=== PATIENT | male | born 1980 | race Caucasian/White ===

== ENCOUNTER 2016-06-02 13:14 | Inpatient (IN) | payer OTHER ==
[~2016-06-02] VITALS: Ht 180.3 cm; Wt 102.5 kg
[~2016-06-02 13:14] MED LIST: ALB2.5NEB INH; ALBU17IN2 INH; ALBU83IN INH; ATOR1TAB21 PO; BENA25TA4 PO; BUTATAB6 PO; CEFD300CAP PO; DOXE100CA PO; FLAG500T PO; FLUO20CA9 PO; LOSA50TA20 PO; LYRI100C10 PO; LYRI150C PO; LYRI200C PO; MUCI600T34 PO; OMEP20CA3 PO; OMEP40CA2 PO; PROZ20CA11 PO; QUET5TAB PO; TRAM200T PO; TYLE325C PO
[2016-06-02] MEDS ORDERED: ONDANSETRON 4MG/2ML VIAL (J2405) As Ordered ONE (13:24)
[2016-06-02] MEDS ORDERED: NALOXONE INJ 2 MG/2 ML SYRINGE (J2310) As Ordered ONE (13:24)
[2016-06-02 13:36] LABS: BASO # 0.2 K/mm3 (0.0-0.2); BASO % 1.1 % (0.0-1.0); EOS # 0.1 K/mm3 (0.0-0.50); EOS % 0.4 % (0.0-3.0); LARGE UNSTAINED CELL # 0.3 K/mm3 (0.0-0.4); LARGE UNSTAINED CELL % 1.5 % (0.0-4.0); LYMPH # 2.1 K/mm3 (1.5-4.5); LYMPH % 8.3 % (24.0-44.0); MEAN CORPUSCULAR HEMOGLOBIN 29.2 pg (27.0-33.0); MEAN CORPUSCULAR HGB CONC 33.8 g/dl (32.0-36.5); MEAN CORPUSCULAR VOLUME 86.4 fl (80.0-96.0); MONO % 4.6 % (0.0-5.0); NEUTROPHILS # 17.9 K/mm3 (1.8-7.7); PLATELET COUNT, AUTOMATED 290 k/mm3 (150-450); RED CELL DISTRIBUTION WIDTH 13.6 % (11.5-14.5); WHITE BLOOD COUNT 21.4 K/mm3 (4.0-10.0)
[2016-06-02 13:45] LABS: AMPHETAMINES LEVEL URINE NEGATIVE (NEGATIVE); BENZODIAZEPINES URINE NEGATIVE (NEGATIVE); COCAINE METABOLITE URINE NEGATIVE (NEGATIVE); CONTROL LINE INT CTR LINE PRESENT; METHADONE URINE NEGATIVE (NEGATIVE); OPIATES URINE NEGATIVE (NEGATIVE); TRICYCLIC ANTIDEPRESS URINE POSITIVE (NEGATIVE)
[2016-06-02 13:57] LABS: ALBUMIN 3.8 GM/DL (3.2-5.2); ALBUMIN/GLOBULIN RATIO 1.19 (1.00-1.93); ALKALINE PHOSPHATASE 105 U/L (45-117); ALT/SGPT 45 U/L (12-78); ANION GAP 9 MEQ/L (8-16); AST/SGOT 121 U/L (15-37); BILIRUBIN,DIRECT < 0.1 MG/DL (0.0-0.2); BILIRUBIN,TOTAL 0.2 MG/DL (0.2-1.0); BLOOD UREA NITROGEN 20 MG/DL (7-18); CALCIUM LEVEL 8.3 MG/DL (8.5-10.1); CARBON DIOXIDE LEVEL 26 MEQ/L (21-32); CHLORIDE LEVEL 109 MEQ/L (98-107); CREATININE FOR GFR 1.37 MG/DL (0.70-1.30); GLOMERULAR FILTRATION RATE > 60.0 (>60); GLUCOSE, FASTING 118 MG/DL (70-105); POTASSIUM SERUM 3.8 MEQ/L (3.5-5.1); SODIUM LEVEL 144 MEQ/L (136-145)
[2016-06-02 14:14] LABS: ABG BASE EXCESS -0.7 (-2.0-2.0); ABG DEVICE NASAL CANN; ABG HCO3 24.6 MEQ/L (22.0-26.0); ABG PARTIAL PRESSURE O2 176.8 mmHg (75.0-100.0); ABG pH (ARTERIAL) 7.376 UNITS (7.350-7.450)
[2016-06-02] MEDS ORDERED: SODIUM BICARBONATE 8.4% INJ 50 ML SYRINGE As Ordered ONE ×2 (15:23→16:16)
[2016-06-02] MEDS ORDERED: KCL 10MEQ IN STERILE WATER 100ML As Ordered ONE (15:23)
--- NOTE | 2016-06-02 15:52 | ECGEPIP ---
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
--- NOTE | 2016-06-02 15:54 | ECGEPIP ---
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
[2016-06-02] MEDS ORDERED: LORazepam 2 MG/ML VIAL (J2060) As Ordered ONE (17:08)
[2016-06-02] MEDS ORDERED: LYRI200C PO (17:15)
[2016-06-02] MEDS ORDERED: FLUO20CA8 PO (17:15)
[2016-06-02] MEDS ORDERED: SERO1TAB3 PO (17:23)
[2016-06-02] MEDS ORDERED: TYLE325T5 PO (17:23)
[2016-06-02] MEDS ORDERED: LOSA50TA20 PO (17:25)
[2016-06-02] MEDS ORDERED: BUTA-198 PO (17:25)
[2016-06-02 17:30] LABS: ABG BASE EXCESS 8.1 (-2.0-2.0); ABG DEVICE NASAL CANN; ABG HCO3 33.1 MEQ/L (22.0-26.0); ABG PARTIAL PRESSURE CO2 47.3 mmHg (35.0-45.0); ABG STANDARD HCO3 31.9 MEQ/L (22.0-26.0); ABG TOTAL CO2 34.6 MEQ/L (22.0-29.0); ABG pH (ARTERIAL) 7.463 UNITS (7.350-7.450)
[2016-06-02 18:08] LABS: ANION GAP 7 MEQ/L (8-16); BLOOD UREA NITROGEN 17 MG/DL (7-18); CALCIUM LEVEL 7.2 MG/DL (8.5-10.1); CARBON DIOXIDE LEVEL 36 MEQ/L (21-32); CHLORIDE LEVEL 108 MEQ/L (98-107); CREATININE FOR GFR 1.27 MG/DL (0.70-1.30); GLOMERULAR FILTRATION RATE > 60.0 (>60); GLUCOSE, FASTING 127 MG/DL (70-105); POTASSIUM SERUM 3.3 MEQ/L (3.5-5.1); SODIUM LEVEL 151 MEQ/L (136-145)
[2016-06-02] MEDS ORDERED: MAG SULF 1GM/100ML (MAG RUN) 1 GM in APPROPRIATE DILUENT 1 EA IV SCH (18:45)
[2016-06-02] MEDS ORDERED: KCL 10MEQ IN 100ML SWI (KRUN) 10 MEQ in APPROPRIATE DILUENT 1 EA IV SCH ×2 (18:45)
[2016-06-02] MEDS ORDERED: LEVALBUTEROL 1.25 MG/0.5 ML CONCENTRATE NEB INH PRN (19:00)
[2016-06-02] MEDS ORDERED: LORazepam 2 MG/ML VIAL (J2060) IV PRN (19:00)
[2016-06-02 19:17] LABS: ABG BASE EXCESS 7.3 (-2.0-2.0); ABG HCO3 32.6 MEQ/L (22.0-26.0); ABG PARTIAL PRESSURE CO2 48.6 mmHg (35.0-45.0); ABG PARTIAL PRESSURE O2 137.5 mmHg (75.0-100.0); ABG STANDARD HCO3 31.2 MEQ/L (22.0-26.0); ABG TOTAL CO2 34.1 MEQ/L (22.0-29.0); ABG pH (ARTERIAL) 7.445 UNITS (7.350-7.450)
[2016-06-02 19:58] LABS: ALBUMIN 3.2 GM/DL (3.2-5.2); ALBUMIN/GLOBULIN RATIO 1.23 (1.00-1.93); ALKALINE PHOSPHATASE 92 U/L (45-117); ALT/SGPT 49 U/L (12-78); AST/SGOT 138 U/L (15-37); BILIRUBIN,DIRECT < 0.1 MG/DL (0.0-0.2); BILIRUBIN,TOTAL 0.2 MG/DL (0.2-1.0); TOTAL PROTEIN 5.8 GM/DL (6.4-8.2)
--- NOTE | 2016-06-02 20:19 | EDDOCDS ---
Physician Documentation [facility] Name: Allen Jimenez Age: 35 yrs Sex: Male : 1980 Arrival Date: 06/02/2016 Time: 13:14 Bed 3 Private MD: Disposition: 06/02/16 16:56 Hospitalization ordered by Bobby Pandey for Inpatient Admission. Preliminary diagnosis are Other psychoactive substance dependence with intoxication, Altered mental status, unspecified. - Bed requested for M ICU. - Status is Inpatient Admission. sls1 - Condition is Stable. - Problem is new. - Symptoms have worsened. Historical: - Allergies: Tramadol HClseizure; Mobic (Anaphylaxis); Ambien; Ambien; Mobic (Anaphylaxis); Tramadol HClseizure; - Home Meds: 1. fluoxetine 20 mg Oral cap 3 caps once daily (Last dose: Unknown) 2. quetiapine 25 mg oral tab 1 tab nightly (Last dose: Unknown) 3. losartan 50 mg oral tab 1 tab once daily (Last dose: Unknown) 4. pregabalin 200 mg Oral cap 1 cap 2 times per day (Last dose: Unknown) 5. doxepin 100 mg Oral cap bedtime quantity 30 -- filled 06/09/2015 bottle empty (Last dose: Unknown) 6. atorvastatin 20 mg oral tab 1 tab once daily (Last dose: Unknown) - PMHx: Asthma; Chronic Back pain; Depression; Asthma; Chronic Back pain; Depression; - PSHx: Colonoscopy; Colonoscopy; - Social history: Smoking status: unknown if patient ever smoked tobacco. No barriers to communication noted, The patient speaks fluent [place], Speaks appropriately for age. - Family history: Not pertinent. - : The pt / caregiver states he / she is not on anticoagulants. Home medication list is obtained from [employer] import data, pill bottles, Unable to Verify Home Med List with the patient / caregiver. - Exposure Risk Screening:: Unable to Assess. Vital Signs: 06/02 13:16 BP 169 / 102 (auto/); pml 13:17 BP 169 / 102; Pulse 123; Resp 16; Temp 100.9(TE); Pulse Ox 97% on 10% Non-rebreather jml1 mask; Weight 103.24 kg / 227.61 lbs; 13:17 Pulse 122 MON; Pulse Ox 97% ; pml 13:25 Pulse 123 MON; Pulse Ox 98% ; pml 13:25 BP 174 / 95 (auto/); pml 13:35 BP 154 / 81 (auto/); pml 13:37 Pulse 122 MON; Pulse Ox 99% ; pml 13:45 Pulse 128 MON; Pulse Ox 99% ; pml 13:45 BP 156 / 82 (auto/); pml 13:55 Pulse 127 MON; Pulse Ox 99% ; pml 13:55 BP 152 / 84 (auto/); pml 14:05 Pulse 126 MON; Pulse Ox 99% ; pml 14:05 BP 151 / 81 (auto/); pml 14:15 Pulse 123 MON; Pulse Ox 99% ; pml 14:15 BP 155 / 79 (auto/); pml 14:25 Pulse 120 MON; Pulse Ox 99% ; pml 14:25 BP 156 / 78 (auto/); pml 14:35 Pulse 119 MON; Pulse Ox 99% ; pml 14:35 BP 150 / 77 (auto/); pml 14:42 Temp 99.0(TE); jml1 14:45 Pulse 119 MON; Pulse Ox 98% ; pml 14:45 BP 155 / 72 (auto/); pml 14:55 Pulse 116 MON; Pulse Ox 99% ; pml 14:55 BP 146 / 72 (auto/); pml 15:05 Pulse 119 MON; Pulse Ox 99% ; pml 15:05 BP 149 / 72 (auto/); pml 15:15 Pulse 121 MON; Pulse Ox 99% ; pml 15:15 BP 154 / 81 (auto/); pml 15:25 Pulse 120 MON; Pulse Ox 100% ; pml 15:25 BP 158 / 76 (auto/); pml 15:35 Pulse 118 MON; Pulse Ox 96% ; pml 15:35 BP 161 / 88 (auto/); pml 15:43 Temp 98.3(R); pml 15:43 Pulse Ox 96% on 2 lpm NC; pml 15:45 Pulse 121 MON; Pulse Ox 96% ; pml 15:45 BP 141 / 79 (auto/); pml 15:55 Pulse 122 MON; Pulse Ox 96% ; pml 15:55 BP 137 / 67 (auto/); pml 16:05 Pulse 121 MON; Pulse Ox 95% ; pml 16:05 BP 131 / 65 (auto/); pml 16:15 Pulse 118 MON; Pulse Ox 94% ; pml 16:15 BP 132 / 73 (auto/); pml 16:25 Pulse 110 MON; Pulse Ox 96% ; pml 16:25 BP 158 / 84 (auto/); pml 16:35 Pulse 110 MON; Pulse Ox 96% ; pml 16:35 BP 150 / 80 (auto/); pml 16:45 Pulse 109 MON; Pulse Ox 94% ; pml 16:45 BP 154 / 80 (auto/); pml 16:55 Pulse 107 MON; Pulse Ox 97% ; pml 16:55 BP 160 / 81 (auto/); pml 17:05 Pulse 112 MON; Pulse Ox 98% ; pml 17:05 BP 156 / 78 (auto/); pml 17:15 Pulse 105 MON; Pulse Ox 98% ; pml 17:15 BP 159 / 70 (auto/); pml 17:45 BP 128 / 70 (auto/); jp6 17:45 Pulse 107 MON; Pulse Ox 97% ; jp6 17:55 BP 128 / 75 (auto/); jp6 17:55 Pulse 107 MON; Pulse Ox 97% ; jp6 18:05 BP 130 / 77 (auto/); jp6 18:05 Pulse 107 MON; Pulse Ox 98% ; jp6 18:15 BP 157 / 70 (auto/); jp6 18:15 Pulse 106 MON; Pulse Ox 98% ; jp6 18:25 BP 156 / 70 (auto/); jp6 18:25 Pulse 104 MON; Pulse Ox 98% ; jp6 18:35 BP 158 / 70 (auto/); jp6 18:35 Pulse 102 MON; Pulse Ox 98% ; jp6 18:45 BP 153 / 71 (auto/); jp6 18:45 Pulse 102 MON; Pulse Ox 98% ; jp6 18:55 BP 144 / 66 (auto/); jp6 18:55 Pulse 101 MON; Pulse Ox 99% ; jp6 19:05 BP 143 / 63 (auto/); jp6 19:05 Pulse 101 MON; Pulse Ox 99% ; jp6 19:15 BP 152 / 65 (auto/); jp6 19:15 Pulse 102 MON; Pulse Ox 99% ; jp6 19:25 BP 152 / 63 (auto/); jp6 19:25 Pulse 101 MON; Pulse Ox 99% ; jp6 19:35 BP 155 / 63 (auto/); jp6 19:35 Pulse 103 MON; Pulse Ox 99% ; jp6 19:45 BP 165 / 81 (auto/); jp6 19:45 Pulse 104 MON; Pulse Ox 99% ; jp6 19:55 BP 164 / 75 (auto/); jp6 19:55 Pulse 105 MON; Pulse Ox 99% ; jp6 20:00 Pulse 107 MON; Pulse Ox 99% ; jp6 20:00 Resp 10; Temp 98.3(R); jp6 MDM: 13:24 Back Tender Pulp Drier/Pulse Ox/q 15 min VS ordered. fg 13:24 Accucheck ordered. fg 13:24 Garay ordered. fg 13:24 IV Saline Lock ordered. fg 13:24 Oxygen at 4L/Min NC or Home dosage ordered. fg 13:24 Rhythm Strip to chart ordered. fg 13:24 Ondansetron 4 mg IVP once ordered. fg 13:25 Urine Culture Ordered. EDMS 13:25 Acetaminophen Level Ordered. EDMS 13:25 CBC with Diff Ordered. EDMS 13:25 Cardiac Injury Profile Ordered. EDMS 13:25 Drug Eval Toxicology ED Only Ordered. EDMS 13:25 Liver Profile Ordered. EDMS 13:25 MED Profile Ordered. EDMS 13:25 Salicylate Level Ordered. EDMS 13:25 Thyroid Stimulating Hormone Ordered. EDMS 13:25 Troponin Ordered. EDMS 13:25 Urinalysis Ordered. EDMS 13:25 CT Head Without Contrast Ordered. EDMS 13:25 Chest, 1 View Ordered. EDMS 13:27 ECG WITH READING ER PHYS+CARDIAG ordered. EDMS 13:29 naloxone 2 mg IVP once ordered. pml 13:49 Hand, Complete Ordered. EDMS 13:55 Fingerstick Blood Sugar Ordered. EDMS 14:00 Call Respiratory ordered. fg 14:00 -Arterial Blood Gas Ordered. EDMS 14:09 Call Respiratory complete. lb 15:12 ETOH Ordered. EDMS 15:21 Sodium Bicarbonate 1 amp Intraosseous once; Please complete med IV. bolus of 2meq/kg. fg 200meq IV ordered. 15:21 Potassium Chloride in 100cc sterile water 10 mEq IV at 100 mL/hr once over 1 hrs fg ordered. 15:35 [facility] [place] Payment Agreement was scanned into Code Blue and attached to record. jp5 15:35 Financial registration complete. jp5 15:39 NS 0.9% 1000 ml IV at bolus once ordered. pml 15:52 ECG WITH READING ER PHYS+CARDIAG ordered. EDMS 15:53 ECG WITH READING ER PHYS ordered. EDMS 16:17 Sodium Bicarbonate 1 amp Intraosseous once; Please give 2meq/hour, for 200meq IV fg ordered. 16:23 NS 0.9% 1000 ml IV at bolus once ordered. fg 16:29 ECG WITH READING ER PHYS ordered. EDMS 16:50 BMP Ordered. EDMS 17:06 LORazepam 0.5 mg IVP once ordered. fg 17:15 -Arterial Blood Gas Ordered. EDMS 18:05 ECG WITH READING ER PHYS+CARDIAG ordered. EDMS 18:38 LIVER PROFILE Ordered. EDMS 18:38 COMPLETE COMPHRENSIVE METABOLI Ordered. EDMS 18:38 CREATINE PHOSPHOKINASE Ordered. EDMS 18:38 CREATINE PHOSPHOKINASE Ordered. EDMS 18:39 ELECTROCARDIOGRAM ADULT ordered. EDMS 18:40 ELECTROCARDIOGRAM ADULT ordered. EDMS 18:40 ELECTROCARDIOGRAM ADULT ordered. EDMS 18:40 ELECTROCARDIOGRAM ADULT ordered. EDMS 18:40 ELECTROCARDIOGRAM ADULT ordered. EDMS 18:40 ELECTROCARDIOGRAM ADULT ordered. EDMS 18:40 ELECTROCARDIOGRAM ADULT ordered. EDMS 18:40 ELECTROCARDIOGRAM ADULT ordered. EDMS 18:40 ELECTROCARDIOGRAM ADULT ordered. EDMS 18:40 ELECTROCARDIOGRAM ADULT ordered. EDMS 18:47 COMPLETE BLOOD COUNT Ordered. EDMS 18:47 MAGNESIUM LEVEL Ordered. EDMS 18:47 ARTERIAL BLOOD GAS Ordered. EDMS 18:50 Admission / Observation Status ordered. EDMS 18:50 NPO DIET ordered. EDMS 19:12 T-Sheet-- Draft Copy was scanned into Code Blue and attached to record. klr 19:32 COMPLETE COMPHRENSIVE METABOLI Ordered. EDMS 19:32 COMPLETE COMPHRENSIVE METABOLI Ordered. EDMS 19:32 COMPLETE COMPHRENSIVE METABOLI Ordered. EDMS 19:32 CREATINE PHOSPHOKINASE Ordered. EDMS 19:32 CREATINE PHOSPHOKINASE Ordered. EDMS 19:32 CREATINE PHOSPHOKINASE Ordered. EDMS 19:32 MAGNESIUM LEVEL Ordered. EDMS 19:32 MAGNESIUM LEVEL Ordered. EDMS 19:32 MAGNESIUM LEVEL Ordered. EDMS 19:58 MRSA SCREEN Ordered. EDMS 20:15 ARTERIAL BLOOD GAS Ordered. EDMS Point of Care Testing: Blood Glucose: 13:47 Blood Glucose: 114 mg/dL; pml Ranges: Administered Medications: 03:15 Drug: naloxone 2 mg [naloxone 1 mg/mL injection syringe (2 mL)] Route: IVP; Site: left pml antecubital; 03:25 Drug: Ondansetron 4 mg [ondansetron HCl 2 mg/mL intravenous solution (2 mL)] Route: pml IVP; Site: left antecubital; 13:40 Drug: NS 0.9% 1000 ml [sodium chloride 0.9 % injection solution] Route: IV; Rate: pml bolus; Site: left antecubital; 15:40 Follow up: IV Status: Completed infusion; IV Intake: 1000ml pml 15:38 Drug: Sodium Bicarbonate 1 amp {Note: admined to left AC IVP -NOT IO .} Route: pml Intraosseous; Site: right humerus; 15:39 Drug: Potassium Chloride in 100cc sterile water 10 mEq [potassium chloride 10 mEq/100 pml mL intravenous piggyback] {Co-Signature: yuly (Allen Callaway RN).} Route: IV; Rate: 100 mL/hr; Infused Over: 1 hrs; Site: left antecubital; 16:35 Follow up: IV Status: Completed infusion pml 16:22 Drug: Sodium Bicarbonate 1 amp {Note: given IVP at left AV - not IO.} Route: pml Intraosseous; Site: left humerus; 16:27 Drug: NS 0.9% 1000 ml [sodium chloride 0.9 % injection solution] Route: IV; Rate: pml bolus; Site: left antecubital; 17:12 Drug: LORazepam 0.5 mg [lorazepam 2 mg/mL injection solution (0.25 mL)] Route: IVP; pml Site: right antecubital; Signatures: Dispatcher [employer] Mariajose Titus RN RN daq Bickel, Lindsay lb Strong, Shannon, RN RN sls1 Juana Patterson RN RN pml Conner, Teresa, RN RN ttb Price, Jennalee jp5 Mireya Duarte MD MD fg Redder, Kathie klr David Youngs RN dy The chart was reviewed and I authenticate all verbal orders and agree with the evaluation and treatment provided.Attachments: 15:35 [facility] Payment Agreement jp5 19:12 T-Sheet-- Draft Copy klr [id number]
--- NOTE | 2016-06-02 20:20 | EDDOCDS ---
Nurse's Notes [facility] Name: Ian Art Age: 35 yrs Sex: Male : 1980 Arrival Date: 06/02/2016 Time: 13:14 Bed 3 Private MD: Diagnosis: Other psychoactive substance dependence with intoxication;Altered mental status, unspecified Presentation: 06/02 13:29 Presenting complaint: Patient states: pts sister had not heard from him today - pml concerned as he has recently broken up with his GF - pts landlord broke into residence and found pt unresponsive. ems arrived and pt unresponsive with sinus tach and spontaneous resps. narcan given IV with no effect. Adult Sepsis Screening: Patient has new or worsening altered mentation (1 point). Patient's respiratory rate is less than 22. Systolic blood pressure is greater than 100. Patient has a qSOFA score of 1- Negative Sepsis Screen. Suicide/Homicide risk assessment- Unable to assess, the patient has an altered level of consciousness. 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 Transition of care: patient was not received from another setting of care. 13:29 Acuity: JOYCE Level 2 pml 13:29 Method Of Arrival: Ambulance pml Triage Assessment: 13:31 General: Appears well nourished, well groomed. Pain: Unable to use pain scale. Patient pml is unresponsive. HIV screening NA for this visit Offered previously. The patient is triaged at the bedside. See Assessment in Nurses Notes section of ED record. Neurological: Level of Consciousness is unresponsive, Pupils are PERRLA, constricted. Cardiovascular: Capillary refill < 3 seconds Rhythm is sinus tachycardia No ectopy. Respiratory: Airway is patent Respiratory effort is even, unlabored, snoring respirations Respiratory pattern is regular, symmetrical, snoring. GI: Abdomen is non- distended. Derm: Skin is pink, warm & dry. Skin temperature is hot. Historical: - Allergies: Tramadol HClseizure; Mobic (Anaphylaxis); Ambien; Ambien; Mobic (Anaphylaxis); Tramadol HClseizure; - Home Meds: 1. fluoxetine 20 mg Oral cap 3 caps once daily (Last dose: Unknown) 2. quetiapine 25 mg oral tab 1 tab nightly (Last dose: Unknown) 3. losartan 50 mg oral tab 1 tab once daily (Last dose: Unknown) 4. pregabalin 200 mg Oral cap 1 cap 2 times per day (Last dose: Unknown) 5. doxepin 100 mg Oral cap bedtime quantity 30 -- filled 06/09/2015 bottle empty (Last dose: Unknown) 6. atorvastatin 20 mg oral tab 1 tab once daily (Last dose: Unknown) - PMHx: Asthma; Chronic Back pain; Depression; Asthma; Chronic Back pain; Depression; - PSHx: Colonoscopy; Colonoscopy; - Social history: Smoking status: unknown if patient ever smoked tobacco. No barriers to communication noted, The patient speaks fluent Malay, Speaks appropriately for age. - Family history: Not pertinent. - : The pt / caregiver states he / she is not on anticoagulants. Home medication list is obtained from [employer] import data, pill bottles, Unable to Verify Home Med List with the patient / caregiver. - Exposure Risk Screening:: Unable to Assess. Screenin:17 Screening information is obtained from the patient. Fall risk: Unable to Assess. pml Assistance ADL's: unable to assess. Abuse/DV Screen: The patient / caregiver reports he/she is: pt cannot be assessed for living situation at this time. Nutritional screening: Unable to Assess. Advance Directives: Unable to assess Advance Directive status due to pt condition. home support is adequate. Assessment: 13:34 General: see triage note. pml 13:44 General: pt had brief period of apnea returning from CT - no noted change in o2 pml saturation. pt remains with gag reflex intact. nasal trumpet 32 nepalese placed - pt withdrew from stimulus during placement of trumpet but tolerates airway without distress once placed . 14:18 General: family at bedside. pt remains unresponsive, nasal airway in place. resps easy pml and unlabored, skin p/w/d. sinus tach on monitor in 120s. chavez to gravity drainage. 15:00 General: resting on stretcher, pupils remain constricted and responsive, pt has periods pml of reaching towards nasal airway, unresponsive to stimuli. sinus tach on monitor. skin p/w/d. 15:44 General: Appears in no apparent distress, well nourished, well groomed. Neurological: pml Level of Consciousness is unresponsive. Cardiovascular: Capillary refill < 3 seconds Rhythm is sinus rhythm No ectopy. Respiratory: Airway is patent Respiratory effort is even, unlabored. Respiratory: Airway via nasal trumpet. GI: Abdomen is non- distended. : Chavez in place to gravity drainage. Derm: Skin is pink, warm & dry. 15:54 General: coughing fit - pt expectorated moderate sized thick sputum. protecting airway pml without s/s of aspiration. . 16:23 General: Appears well nourished, well groomed. Neurological: Level of Consciousness is pml unresponsive. Cardiovascular: Capillary refill < 3 seconds Rhythm is sinus tachycardia No ectopy. Respiratory: Airway is patent via nasal trumpet Respiratory effort is even, unlabored. GI: Abdomen is non- distended. Derm: Skin is pink, warm & dry. 16:40 General: pt with periods of coughing and sitting upright and reaching for nasal pml trumpet, each lasting less than 3 seconds. family at bedside concerned pt is becoming responsive. pt remains unresponsive to painful stimuli, no purposeful movements. attempts to explain this to family not received. . 16:58 General: Appears well nourished, well groomed. Pain: Unable to use pain scale. Patient pml is unresponsive. Neurological: Level of Consciousness is unresponsive. Cardiovascular: Capillary refill < 3 seconds Rhythm is sinus tachycardia No ectopy. Respiratory: Airway is patent via nasal trumpet Respiratory effort is even, unlabored. Derm: Skin is pink, warm & dry. 17:00 General: Tardive dyskinesia noted. MD Duarte aware, new orders obtained and administered. pml . 17:19 General: pt with period of decreased CO2 levels on capnography, MD Duarte aware, repeat pml blood gases ordered. Pt repositioned with improvements and co2s returned to 33mmHG. 17:44 General: Appears well nourished, well groomed. Pain: Unable to use pain scale. Patient pml is unresponsive. Neurological: Level of Consciousness is unresponsive. Cardiovascular: Capillary refill < 3 seconds Rhythm is sinus tachycardia No ectopy. Respiratory: Airway is patent via nasal trumpet Respiratory effort is even, unlabored, Respiratory pattern is symmetrical. Derm: Skin is pink, warm & dry. 19:02 General: Appears in no apparent distress, well developed, well nourished, well groomed, jp6 Behavior is unresponive. Neurological: Level of Consciousness is unresponsive. EENT: No deficits noted. Cardiovascular: Capillary refill < 3 seconds Heart tones S1 S2 present Rhythm is sinus tachycardia. Respiratory: Airway is patent via nasal trumpet Respiratory effort is even, unlabored, Respiratory pattern is symmetrical, Breath sounds are clear bilaterally. GI: Abdomen is flat, non- distended Bowel sounds present X 4 quads. : Chavez in place to gravity drainage Urine is clear. Derm: Skin is pink, warm & dry. Musculoskeletal: No deficits noted. 20:05 Reassessment: Patient appears in no apparent distress at this time. Patient states jp6 symptoms have not improved. General: Behavior is remains unresponsive. Neurological: Level of Consciousness is unresponsive, Pupils are constricted. Cardiovascular: Rhythm is sinus tachycardia. Respiratory: Airway is patent Respiratory effort is even, unlabored, Respiratory pattern is symmetrical. Derm: Skin is pink, warm & dry. Vital Signs: 13:16 BP 169 / 102 (auto/); pml 13:17 BP 169 / 102; Pulse 123; Resp 16; Temp 100.9(TE); Pulse Ox 97% on 10% Non-rebreather jml1 mask; Weight 103.24 kg; 13:17 Pulse 122 MON; Pulse Ox 97% ; pml 13:25 Pulse 123 MON; Pulse Ox 98% ; pml 13:25 BP 174 / 95 (auto/); pml 13:35 BP 154 / 81 (auto/); pml 13:37 Pulse 122 MON; Pulse Ox 99% ; pml 13:45 Pulse 128 MON; Pulse Ox 99% ; pml 13:45 BP 156 / 82 (auto/); pml 13:55 Pulse 127 MON; Pulse Ox 99% ; pml 13:55 BP 152 / 84 (auto/); pml 14:05 Pulse 126 MON; Pulse Ox 99% ; pml 14:05 BP 151 / 81 (auto/); pml 14:15 Pulse 123 MON; Pulse Ox 99% ; pml 14:15 BP 155 / 79 (auto/); pml 14:25 Pulse 120 MON; Pulse Ox 99% ; pml 14:25 BP 156 / 78 (auto/); pml 14:35 Pulse 119 MON; Pulse Ox 99% ; pml 14:35 BP 150 / 77 (auto/); pml 14:42 Temp 99.0(TE); jml1 14:45 Pulse 119 MON; Pulse Ox 98% ; pml 14:45 BP 155 / 72 (auto/); pml 14:55 Pulse 116 MON; Pulse Ox 99% ; pml 14:55 BP 146 / 72 (auto/); pml 15:05 Pulse 119 MON; Pulse Ox 99% ; pml 15:05 BP 149 / 72 (auto/); pml 15:15 Pulse 121 MON; Pulse Ox 99% ; pml 15:15 BP 154 / 81 (auto/); pml 15:25 Pulse 120 MON; Pulse Ox 100% ; pml 15:25 BP 158 / 76 (auto/); pml 15:35 Pulse 118 MON; Pulse Ox 96% ; pml 15:35 BP 161 / 88 (auto/); pml 15:43 Temp 98.3(R); pml 15:43 Pulse Ox 96% on 2 lpm NC; pml 15:45 Pulse 121 MON; Pulse Ox 96% ; pml 15:45 BP 141 / 79 (auto/); pml 15:55 Pulse 122 MON; Pulse Ox 96% ; pml 15:55 BP 137 / 67 (auto/); pml 16:05 Pulse 121 MON; Pulse Ox 95% ; pml 16:05 BP 131 / 65 (auto/); pml 16:15 Pulse 118 MON; Pulse Ox 94% ; pml 16:15 BP 132 / 73 (auto/); pml 16:25 Pulse 110 MON; Pulse Ox 96% ; pml 16:25 BP 158 / 84 (auto/); pml 16:35 Pulse 110 MON; Pulse Ox 96% ; pml 16:35 BP 150 / 80 (auto/); pml 16:45 Pulse 109 MON; Pulse Ox 94% ; pml 16:45 BP 154 / 80 (auto/); pml 16:55 Pulse 107 MON; Pulse Ox 97% ; pml 16:55 BP 160 / 81 (auto/); pml 17:05 Pulse 112 MON; Pulse Ox 98% ; pml 17:05 BP 156 / 78 (auto/); pml 17:15 Pulse 105 MON; Pulse Ox 98% ; pml 17:15 BP 159 / 70 (auto/); pml 17:45 BP 128 / 70 (auto/); jp6 17:45 Pulse 107 MON; Pulse Ox 97% ; jp6 17:55 BP 128 / 75 (auto/); jp6 17:55 Pulse 107 MON; Pulse Ox 97% ; jp6 18:05 BP 130 / 77 (auto/); jp6 18:05 Pulse 107 MON; Pulse Ox 98% ; jp6 18:15 BP 157 / 70 (auto/); jp6 18:15 Pulse 106 MON; Pulse Ox 98% ; jp6 18:25 BP 156 / 70 (auto/); jp6 18:25 Pulse 104 MON; Pulse Ox 98% ; jp6 18:35 BP 158 / 70 (auto/); jp6 18:35 Pulse 102 MON; Pulse Ox 98% ; jp6 18:45 BP 153 / 71 (auto/); jp6 18:45 Pulse 102 MON; Pulse Ox 98% ; jp6 18:55 BP 144 / 66 (auto/); jp6 18:55 Pulse 101 MON; Pulse Ox 99% ; jp6 19:05 BP 143 / 63 (auto/); jp6 19:05 Pulse 101 MON; Pulse Ox 99% ; jp6 19:15 BP 152 / 65 (auto/); jp6 19:15 Pulse 102 MON; Pulse Ox 99% ; jp6 19:25 BP 152 / 63 (auto/); jp6 19:25 Pulse 101 MON; Pulse Ox 99% ; jp6 19:35 BP 155 / 63 (auto/); jp6 19:35 Pulse 103 MON; Pulse Ox 99% ; jp6 19:45 BP 165 / 81 (auto/); jp6 19:45 Pulse 104 MON; Pulse Ox 99% ; jp6 19:55 BP 164 / 75 (auto/); jp6 19:55 Pulse 105 MON; Pulse Ox 99% ; jp6 20:00 Pulse 107 MON; Pulse Ox 99% ; jp6 20:00 Resp 10; Temp 98.3(R); jp6 Vitals: 13:31 Log In Time N/A - ambulance arrival. pml 15:43 ETCO2 34mmHg. pml ED Course: 13:15 Patient visited by Manjula Kimbrough, Cigarette Making Machine Operator. deg 13:15 Juana Patterson,RN is Primary Nurse. deg 13:15 Patient moved to Waiting deg 13:15 Patient moved to 3 deg 13:17 Unable to instruct regarding the plan of care due to patient condition. Patient has pml correct armband on for positive identification. Placed in gown. Bed in low position. Side rails up X2. school business manager on. Pulse ox on. NIBP on. 13:17 Inserted peripheral IV: 18gauge IV in right antecubital area and blood collected. pml Patient tolerated the procedure well. 13:17 Maintain field IV. Dressing intact. Good blood return noted. Site clean & dry. Gauge & pml site: 18g left AC. 13:19 Patient visited by Chaim Quiñonez. jml1 13:22 Mireya Duarte MD is Attending Physician. fg 13:22 Patient visited by Mireya Duarte MD. fg 13:28 EKG done. (by ED staff). Reviewed by Mireya Duarte MD. bnb 13:30 Patient visited by Becky Rahman, RN. ttb 13:30 Triage Initiated pml 13:35 Patient visited by Juana Patterson,RN. pml 13:45 Patient visited by Lisette Cruz PCA. bnb 13:45 Patient visited by Juana Patterson,RN. pml 14:09 -Arterial Blood Gas Sent. lb 14:19 Patient visited by Juana Patterson,HALLE. pml 14:42 Patient visited by Chaim Quiñonez. jml1 15:30 Poison Control notified at 15:30 recommendations reviewed with Felicia. recommend 2meq/kg pml Sodium Bicarb bolus and repeat until QRS duration closer to 100ms. then initiate Sodium Bicarb drip at 1.5-2x maintenance dose. recommend monitor for hyperthermia and seizure activity. benzos PRN for seizures. monitor for respiratory depression. 15:32 EKG done. (by ED staff). Reviewed by Mireya Duarte MD. jml1 15:33 Patient visited by Chaim Quiñonez. jml1 15:35 [facility] Payment Agreement was scanned into [employer] and attached to record. jp5 15:47 Patient visited by Juana Patterson,HALLE. pml 15:55 Patient visited by Juana Patterson,HALLE. pml 16:04 EKG-ADULT Returned. EDMS 16:04 EKG-ADULT Returned. EDMS 16:15 Poison Control reviewed initial bolus and no change in QRS with poison control nurse - pml advised repeat bolus at 2 meq/kg and repeat EKG following bolus. 16:24 Patient visited by Juana Patterson,HALLE. pml 16:41 Patient visited by Juana Patterson,HALLE. pml 16:53 Bobby Pandey is Hospitalizing Provider. fg 16:53 Poison Control reviewed repeat EKGs - poison control nurse will review case with on pml call putty patcher in regards to continuing sodium bicarb and will recontact the ED. 17:02 Patient visited by Juana Patterson,HALLE. pml 17:21 Patient visited by Juana Patterson,HALLE. pml 17:21 -Arterial Blood Gas Sent. js 17:44 Patient visited by Juana Patterson,HALLE. pml 18:00 Poison Control per putty patcher employee relations advisor continue to monitor EKG for increase from pml current QRS duration. if QRS duration increases repeat dose or Sodium Bicarb bolus. 18:09 EKG done. (by ED staff). Reviewed by Mireya Duarte MD. pml 19:03 Patient visited by Abdiel Sierra PCA. kb5 19:12 T-Sheet-- Draft Copy was scanned into [employer] and attached to record. klr 19:12 ARTERIAL BLOOD GAS Sent. rs5 20:00 No procedures done that require assistance. O2 via nasal cannula nasal trumpet in right jp6 nare-O2 at 6l/min. Administered Medications: 03:15 Drug: naloxone 2 mg [naloxone 1 mg/mL injection syringe (2 mL)] Route: IVP; Site: left pml antecubital; 03:25 Drug: Ondansetron 4 mg [ondansetron HCl 2 mg/mL intravenous solution (2 mL)] Route: pml IVP; Site: left antecubital; 13:40 Drug: NS 0.9% 1000 ml [sodium chloride 0.9 % injection solution] Route: IV; Rate: pml bolus; Site: left antecubital; 15:40 Follow up: IV Status: Completed infusion; IV Intake: 1000ml pml 15:38 Drug: Sodium Bicarbonate 1 amp {Note: admined to left AC IVP -NOT IO .} Route: pml Intraosseous; Site: right humerus; 15:39 Drug: Potassium Chloride in 100cc sterile water 10 mEq [potassium chloride 10 mEq/100 pml mL intravenous piggyback] {Co-Signature: dy (Ian Callaway RN).} Route: IV; Rate: 100 mL/hr; Infused Over: 1 hrs; Site: left antecubital; 16:35 Follow up: IV Status: Completed infusion pml 16:22 Drug: Sodium Bicarbonate 1 amp {Note: given IVP at left AV - not IO.} Route: pml Intraosseous; Site: left humerus; 16:27 Drug: NS 0.9% 1000 ml [sodium chloride 0.9 % injection solution] Route: IV; Rate: pml bolus; Site: left antecubital; 17:12 Drug: LORazepam 0.5 mg [lorazepam 2 mg/mL injection solution (0.25 mL)] Route: IVP; pml Site: right antecubital; Point of Care Testing: Blood Glucose: 13:47 Blood Glucose: 114 mg/dL; pml Ranges: Intake: 15:40 IV: 1000.00ml; Total: 1000.00ml. pml 20:00 PO: 0.00ml; Total: 1000.00ml. jp6 Output: 14:19 Urine: 1000.00ml (Chavez); Total: 1000.00ml. pml 20:00 Urine: 500.00ml (Chavez); Total: 1500.00ml. jp6 RT: 14:09 ABG's drawn from right radial artery allens test done and positive pressure held for 5 lb minutes no bleeding noted pressure bandage applied specimen sent pt. tolerated well. O2 via non-rebreather \T\ 15L/min. 15:31 Patient Education: pt was placed on end tidal monitoring with 2L NC. etco2 36. lb 17:21 ABG's drawn from right radial artery allens test done and positive pressure held for 5 js minutes no bleeding noted pressure bandage applied specimen sent pt. tolerated well. 19:12 ABG's drawn from right radial artery pressure held for 5 minutes no bleeding noted rs5 pressure bandage applied specimen sent pt. tolerated well. Order Results: Lab Order: Acetaminophen Level; SPEC'M 06/02/16 13:18 Test: ACETAMINOPHEN LEVEL; Value: < 2.0; Range: 10.0-30.0; Abnormal: Below low normal; Units: UG/ML; Status: F Lab Order: CBC with Diff; SPEC'M 06/02/16 13:18 Test: WHITE BLOOD COUNT; Value: 21.4; Range: 4.0-10.0; Abnormal: Above high normal; Units: K/mm3; Status: F Test: RED BLOOD COUNT; Value: 5.22; Range: 4.30-6.10; Units: M/mm3; Status: F Test: HEMOGLOBIN; Value: 15.3; Range: 14.0-18.0; Units: g/dl; Status: F Test: HEMATOCRIT; Value: 45.1; Range: 42.0-52.0; Units: %; Status: F Test: MEAN CORPUSCULAR VOLUME; Value: 86.4; Range: 80.0-96.0; Units: fl; Status: F Test: MEAN CORPUSCULAR HEMOGLOBIN; Value: 29.2; Range: 27.0-33.0; Units: pg; Status: F Test: MEAN CORPUSCULAR HGB CONC; Value: 33.8; Range: 32.0-36.5; Units: g/dl; Status: F Test: RED CELL DISTRIBUTION WIDTH; Value: 13.6; Range: 11.5-14.5; Units: %; Status: F Test: PLATELET COUNT, AUTOMATED; Value: 290; Range: 150-450; Units: k/mm3; Status: F Test: NEUTROPHILS %; Value: 84.0; Range: 36.0-66.0; Abnormal: Above high normal; Units: %; Status: F Test: LYMPH %; Value: 8.3; Range: 24.0-44.0; Abnormal: Below low normal; Units: %; Status: F Test: MONO %; Value: 4.6; Range: 0.0-5.0; Units: %; Status: F Test: EOS %; Value: 0.4; Range: 0.0-3.0; Units: %; Status: F Test: BASO %; Value: 1.1; Range: 0.0-1.0; Abnormal: Above high normal; Units: %; Status: F Test: LARGE UNSTAINED CELL %; Value: 1.5; Range: 0.0-4.0; Units: %; Status: F Test: NEUTROPHILS #; Value: 17.9; Range: 1.8-7.7; Abnormal: Above high normal; Units: K/mm3; Status: F Test: LYMPH #; Value: 2.1; Range: 1.5-4.5; Units: K/mm3; Status: F Test: MONO #; Value: 1.0; Range: 0.0-0.8; Abnormal: Above high normal; Units: K/mm3; Status: F Test: EOS #; Value: 0.1; Range: 0.0-0.50; Units: K/mm3; Status: F Test: BASO #; Value: 0.2; Range: 0.0-0.2; Units: K/mm3; Status: F Test: LARGE UNSTAINED CELL #; Value: 0.3; Range: 0.0-0.4; Units: K/mm3; Status: F Lab Order: Cardiac Injury Profile; SPEC'M 06/02/16 13:18 Test: CPK CREATINE PHOSPHOKINASE; Value: 5429; Range: 39-308; Abnormal: Above high normal; Units: U/L; Status: F Test: CK-MB VALUE MASS; Value: 19.9; Range: 0.0-3.6; Abnormal: Above high normal; Units: NG/ML; Status: F Test: MB/CK RELATIVE INDEX; Value: 0.36; Range: < OR =4; Status: F Test Note: ; DIAGNOSIS CRITERIA MMB ng/ml Relative Index (RI) NON-AMI < or = 5 N/A PERKINS ZONE > 5 < or = 4 AMI > 5 > 4 Lab Order: Drug Eval Toxicology ED Only; SPEC'M 06/02/16 13:18 Test: AMPHETAMINES LEVEL URINE; Value: NEGATIVE; Range: NEGATIVE; Status: F Test: BARBITURATES URINE; Value: NEGATIVE; Range: NEGATIVE; Status: F Test: BENZODIAZEPINES URINE; Value: NEGATIVE; Range: NEGATIVE; Status: F Test: CANNABINOIDS URINE; Value: NEGATIVE; Range: NEGATIVE; Status: F Test: COCAINE METABOLITE URINE; Value: NEGATIVE; Range: NEGATIVE; Status: F Test: METHADONE URINE; Value: NEGATIVE; Range: NEGATIVE; Status: F Test: OPIATES URINE; Value: NEGATIVE; Range: NEGATIVE; Status: F Test: TRICYCLIC ANTIDEPRESS URINE; Value: POSITIVE; Range: NEGATIVE; Abnormal: Above high normal; Status: F Test Note: ; ALL PRESUMPTIVE POSITIVE FINDINGS ARE UNCONFIRMED NORMAL VALUES THRESHOLD IN NG/ML AMPHETAMINES 1000 METHAMPHETAMINES 1000 BARBITURATES 300 BENZODIAZEPINES 300 CANNABINOIDS (THC) 50 COCAINE METABOLITE 300 METHADONE 300 OPIATES 300 PHENCYCLIDINE 25 TRICYCLIC ANTIDEPRESSANTS 1000 RESULTS ARE FOR MEDICAL PURPOSES ONLY. ALL URINE SPECIMENS WILL BE SAVED FOR 3 DAYS. IF CONFIRMATION OF A PRESUMPTIVE POSTIVE SCREEN RESULT IS DESIRED, CALL CHEMISTRY ([phone]) AND REQUEST URINE TO BE SENT TO REFERENCE LAB. FOR A LIST OF CLOSELY RELATED COMPOUNDS PLEASE CALL THE LAB. Lab Order: Liver Profile; SPEC'M 06/02/16 13:18 Test: AST/SGOT; Value: 121; Range: 15-37; Abnormal: Above high normal; Units: U/L; Status: F Test: ALT/SGPT; Value: 45; Range: 12-78; Units: U/L; Status: F Test: ALKALINE PHOSPHATASE; Value: 105; Range: 45-117; Units: U/L; Status: F Test: BILIRUBIN,TOTAL; Value: 0.2; Range: 0.2-1.0; Units: MG/DL; Status: F Test: BILIRUBIN,DIRECT; Value: < 0.1; Range: 0.0-0.2; Units: MG/DL; Status: F Test: TOTAL PROTEIN; Value: 7.0; Range: 6.4-8.2; Units: GM/DL; Status: F Test: ALBUMIN; Value: 3.8; Range: 3.2-5.2; Units: GM/DL; Status: F Test: ALBUMIN/GLOBULIN RATIO; Value: 1.19; Range: 1.00-1.93; Status: F Lab Order: [facility] Profile; [facility]' 06/02/16 13:18 Test: GLUCOSE, FASTING; Value: 118; Range: 70-105; Abnormal: Above high normal; Units: MG/DL; Status: F Test: BLOOD UREA NITROGEN; Value: 20; Range: 7-18; Abnormal: Above high normal; Units: MG/DL; Status: F Test: CREATININE FOR GFR; Value: 1.37; Range: 0.70-1.30; Abnormal: Above high normal; Units: MG/DL; Status: F Test: GLOMERULAR FILTRATION RATE; Value: > 60.0; Range: >60; Status: F Test: SODIUM LEVEL; Value: 144; Range: 136-145; Units: MEQ/L; Status: F Test: POTASSIUM SERUM; Value: 3.8; Range: 3.5-5.1; Units: MEQ/L; Status: F Test: CHLORIDE LEVEL; Value: 109; Range: 98-107; Abnormal: Above high normal; Units: MEQ/L; Status: F Test: CARBON DIOXIDE LEVEL; Value: 26; Range: 21-32; Units: MEQ/L; Status: F Test: ANION GAP; Value: 9; Range: 8-16; Units: MEQ/L; Status: F Test: CALCIUM LEVEL; Value: 8.3; Range: 8.5-10.1; Abnormal: Below low normal; Units: MG/DL; Status: F Test Note: ; Units are mL/min/1.73 m2 Chronic Kidney Disease Staging per NKF: Stage I & II GFR >=60 Normal to Mildly Decreased Stage III GFR 30-59 Moderately Decreased Stage IV GFR 15-29 Severely Decreased Stage V GFR <15 Very Little GFR Left ESRD GFR <15 on TRAIN [place] Lab Order: Salicylate Level; SPEC'M 06/02/16 13:18 Test: SALICYLATE LEVEL; Value: < 1.7; Range: 5.0-30.0; Abnormal: Below low normal; Units: MG/DL; Status: F Lab Order: Thyroid Stimulating Hormone; SPEC'M 06/02/16 13:18 Test: THYROID STIMULATING HORMONE; Value: 1.460; Range: 0.358-3.740; Units: uIU/ML; Status: F Lab Order: Troponin; SPEC'06/02/16:18 Test: TROPONIN I; Value: < 0.02; Range: < 0.10; Units: NG/ML; Status: F Test Note: ; Troponin I Reference Interval for Siemens Adreal LOCI: 99th Percentile= 0.00-0.045 ng/ml Risk Stratification: <= 0.10 ng/ml Decreased Risk for Adverse Clinical Events. 0.10-1.50 ng/ml Increased Risk for Adverse Clinical Events. Evaluation of additional criterion and/or repeat testing in 2-6 hours is suggested to rule out myocardial damage. >= 1.50 ng/ml Indicative of Myocardial Injury. Lab Order: Urinalysis; SPEC'M 06/02/16 13:18 Test: APPEARANCE, URINE; Value: CLEAR; Range: CLEAR; Status: F Test: COLOR, URINE; Value: YELLOW; Range: YELLOW; Status: F Test: PH,URINE; Value: 5.0; Range: 5.0-9.0; Units: UNITS; Status: F Test: SPECIFIC GRAVITY URINE AUTO; Value: 1.019; Range: 1.002-1.035; Status: F Test: PROTEIN, URINE AUTO; Value: NEGATIVE; Range: NEGATIVE; Units: mg/dL; Status: F Test: GLUCOSE, URINE (UA) AUTO; Value: NEGATIVE; Range: NEGATIVE; Units: mg/dL; Status: F Test: KETONE, URINE AUTO; Value: TRACE; Range: NEGATIVE; Abnormal: Above high normal; Units: mg/dL; Status: F Test: UROBILINOGEN, URINE AUTO; Value: 0.2; Range: 0.0-2.0; Units: mg/dL; Status: F Test: BILIRUBIN, URINE AUTO; Value: NEGATIVE; Range: NEGATIVE; Status: F Test: NITRITE, URINE AUTO; Value: NEGATIVE; Range: NEGATIVE; Status: F Test: LEUKOCYTE ESTERASE, URINE AUTO; Value: NEGATIVE; Range: NEGATIVE; Status: F Test: BLOOD, URINE BLOOD; Value: 2+; Range: NEGATIVE; Abnormal: Above high normal; Status: F Test: WBC, URINE AUTO; Value: 0; Range: 0-3; Units: /HPF; Status: F Test: RBC, URINE AUTO; Value: 5; Range: 0-3; Abnormal: Above high normal; Units: /HPF; Status: F Test: BACTERIA, URINE AUTO; Value: NEGATIVE; Range: NEGATIVE; Status: F Test: SQUAMOUS EPITHELIAL CELL UR AU; Value: 0; Range: 0-6; Units: /HPF; Status: F Test: MUCUS, URINE; Value: SMALL; Range: NEGATIVE; Status: F Test: HYALINE CAST, URINE AUTO; Value: 0; Range: 0-1; Units: /LPF; Status: F Lab Order: Fingerstick Blood Sugar; SPEC'M 06/02/16 13:47 Test: BEDSIDE GLUCOSE; Value: 127; Range: 70-105; Abnormal: Above high normal; Units: MG/DL; Status: F Lab Order: -Arterial Blood Gas; SPEC'M 06/02/16 14:05 Test: ABG pH (ARTERIAL); Value: 7.376; Range: 7.350-7.450; Units: UNITS; Status: F Test: ABG PARTIAL PRESSURE CO2; Value: 43.0; Range: 35.0-45.0; Units: mmHg; Status: F Test: ABG PARTIAL PRESSURE O2; Value: 176.8; Range: 75.0-100.0; Abnormal: Above high normal; Units: mmHg; Status: F Test: ABG TOTAL CO2; Value: 26.0; Range: 22.0-29.0; Units: MEQ/L; Status: F Test: ABG HCO3; Value: 24.6; Range: 22.0-26.0; Units: MEQ/L; Status: F Test: ABG BASE EXCESS; Value: -0.7; Range: -2.0-2.0; Status: F Test: ABG STANDARD HCO3; Value: 24.0; Range: 22.0-26.0; Units: MEQ/L; Status: F Test: ABG O2 SATURATION; Value: 99.3; Range: 95.0-99.0; Abnormal: Above high normal; Units: %; Status: F Test: ABG DEVICE; Value: NASAL GEOFF; Status: F Lab Order: ETOH; SPEC'M 06/02/16 13:18 Test: ETHYL ALCOHOL (ETHANOL); Value: < 0.003; Range: 0.000-0.010; Units: %; Status: F Lab Order: BMP; SPEC'M 06/02/16 17:27 Test: GLUCOSE, FASTING; Value: 127; Range: 70-105; Abnormal: Above high normal; Units: MG/DL; Status: F Test: BLOOD UREA NITROGEN; Value: 17; Range: 7-18; Units: MG/DL; Status: F Test: CREATININE FOR GFR; Value: 1.27; Range: 0.70-1.30; Units: MG/DL; Status: F Test: GLOMERULAR FILTRATION RATE; Value: > 60.0; Range: >60; Status: F Test: SODIUM LEVEL; Value: 151; Range: 136-145; Abnormal: Above high normal; Units: MEQ/L; Status: F Test: POTASSIUM SERUM; Value: 3.3; Range: 3.5-5.1; Abnormal: Below low normal; Units: MEQ/L; Status: F Test: CHLORIDE LEVEL; Value: 108; Range: 98-107; Abnormal: Above high normal; Units: MEQ/L; Status: F Test: CARBON DIOXIDE LEVEL; Value: 36; Range: 21-32; Abnormal: Above high normal; Units: MEQ/L; Status: F Test: ANION GAP; Value: 7; Range: 8-16; Abnormal: Below low normal; Units: MEQ/L; Status: F Test: CALCIUM LEVEL; Value: 7.2; Range: 8.5-10.1; Abnormal: Below low normal; Units: MG/DL; Status: F Test Note: ; Units are mL/min/1.73 m2 Chronic Kidney Disease Staging per NKF: Stage I & II GFR >=60 Normal to Mildly Decreased Stage III GFR 30-59 Moderately Decreased Stage IV GFR 15-29 Severely Decreased Stage V GFR <15 Very Little GFR Left ESRD GFR <15 on TRAIN [place] Lab Order: -Arterial Blood Gas; SPEC'M 06/02/16 17:18 Test: ABG pH (ARTERIAL); Value: 7.463; Range: 7.350-7.450; Abnormal: Above high normal; Units: UNITS; Status: F Test: ABG PARTIAL PRESSURE CO2; Value: 47.3; Range: 35.0-45.0; Abnormal: Above high normal; Units: mmHg; Status: F Test: ABG PARTIAL PRESSURE O2; Value: 92.0; Range: 75.0-100.0; Units: mmHg; Status: F Test: ABG TOTAL CO2; Value: 34.6; Range: 22.0-29.0; Abnormal: Above high normal; Units: MEQ/L; Status: F Test: ABG HCO3; Value: 33.1; Range: 22.0-26.0; Abnormal: Above high normal; Units: MEQ/L; Status: F Test: ABG BASE EXCESS; Value: 8.1; Range: -2.0-2.0; Abnormal: Above high normal; Status: F Test: ABG STANDARD HCO3; Value: 31.9; Range: 22.0-26.0; Abnormal: Above high normal; Units: MEQ/L; Status: F Test: ABG O2 SATURATION; Value: 97.3; Range: 95.0-99.0; Units: %; Status: F Test: ABG DEVICE; Value: NASAL GEOFF; Status: F Lab Order: LIVER PROFILE; SPEC'M 06/02/16 19:01 Test: AST/SGOT; Value: 138; Range: 15-37; Abnormal: Above high normal; Units: U/L; Status: F Test: ALT/SGPT; Value: 49; Range: 12-78; Units: U/L; Status: F Test: ALKALINE PHOSPHATASE; Value: 92; Range: 45-117; Units: U/L; Status: F Test: BILIRUBIN,TOTAL; Value: 0.2; Range: 0.2-1.0; Units: MG/DL; Status: F Test: BILIRUBIN,DIRECT; Value: < 0.1; Range: 0.0-0.2; Units: MG/DL; Status: F Test: TOTAL PROTEIN; Value: 5.8; Range: 6.4-8.2; Abnormal: Below low normal; Units: GM/DL; Status: F Test: ALBUMIN; Value: 3.2; Range: 3.2-5.2; Units: GM/DL; Status: F Test: ALBUMIN/GLOBULIN RATIO; Value: 1.23; Range: 1.00-1.93; Status: F Lab Order: CREATINE PHOSPHOKINASE; SPEC'M 06/02/16 19:01 Test: CPK CREATINE PHOSPHOKINASE; Value: 6022; Range: 39-308; Abnormal: Above high normal; Units: U/L; Status: F Lab Order: ARTERIAL BLOOD GAS; SPEC'06/02/16 19:01 Test: ABG pH (ARTERIAL); Value: 7.445; Range: 7.350-7.450; Units: UNITS; Status: F Test: ABG PARTIAL PRESSURE CO2; Value: 48.6; Range: 35.0-45.0; Abnormal: Above high normal; Units: mmHg; Status: F Test: ABG PARTIAL PRESSURE O2; Value: 137.5; Range: 75.0-100.0; Abnormal: Above high normal; Units: mmHg; Status: F Test: ABG TOTAL CO2; Value: 34.1; Range: 22.0-29.0; Abnormal: Above high normal; Units: MEQ/L; Status: F Test: ABG HCO3; Value: 32.6; Range: 22.0-26.0; Abnormal: Above high normal; Units: MEQ/L; Status: F Test: ABG BASE EXCESS; Value: 7.3; Range: -2.0-2.0; Abnormal: Above high normal; Status: F Test: ABG STANDARD HCO3; Value: 31.2; Range: 22.0-26.0; Abnormal: Above high normal; Units: MEQ/L; Status: F Test: ABG O2 SATURATION; Value: 98.7; Range: 95.0-99.0; Units: %; Status: F Radiology Order: EKG-ADULT Test: EKG-ADULT REASON FOR EXAMINATION: Cough; Stationary ECG Study; [facility] ED; ; Test Date: 2016-06-02; Pat Name: IAN ART Department:; Room: -; Gender: M 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; : 1980 Requested By: MIREYA Robledo; Order Number: [id number] Reading MD: Amelia Parisi; Measurements; Intervals [place]; Rate: 123 P: 47; MI: 155 QRS: 63; QRSD: 133 T: -16; QT: 327; QTc: 469; Interpretive Statements; SINUS TACHYCARDIA; INTRAVENTRICULAR CONDUCTION DELAY; PROBABLE INFERIOR MYOCARDIAL INFARCTION, OF INDETERMINATE AGE; PROLONGED QTC; Electronically Signed On 06-02-2016 15:52:28 EST by Amelia Parisi; Radiology Order: EKG-ADULT Test: EKG-ADULT REASON FOR EXAMINATION: od; Stationary ECG Study; [facility] ED; ; Test Date: 2016-06-02; Pat Name: IAN ART Department:; Room: -; Gender: M 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 fg 20:05 Discharge Assessment: patient administered narcotics - no. Admitted to ICU accompanied jp6 by nurse, accompanied by tech, via stretcher, with oxygen, on monitor, with chart. critical. CT Study completed. Admission hand-off: Report called to RN in ICU. Property :Personal belongings accompany Pt. 20:13 The following High Risk Discharge criteria are identified: None. jp6 20:18 Patient left the ED. sls1 Signatures: Dispatcher [employer] EDMS Manjula Kimbrough, Cigarette Making Machine Operator Unit deg Zoya,Marcia Galindo,Abdiel Upton, ELECTROMEDICAL SERVICE ENGINEER ELECTROMEDICAL SERVICE ENGINEER kb5 Yola Dang, RN RN sls1 Olamide, Chaim jml1 Polo Leiva,RT RT rs5 Juana Patterson,RN RN pml Becky Rahman, RN RN ttb Sharri Hayward jp5 Mireya Duarte MD MD fg Palmer, Jessica, RN RN jp6 Cathryn Jiang Brittney, ELECTROMEDICAL SERVICE ENGINEER ELECTROMEDICAL SERVICE ENGINEER bnb Ian emery Corrections: (The following items were deleted from the chart) 20:11 19:02 Reassessment: Patient appears in no apparent distress at this time. Patient jp6 states symptoms have improved. jp6 MTDD
[2016-06-02 21:00] VITALS: BP 155/95
[2016-06-02] MEDS: PANTOPRAZOLE 40MG INJ (PROTONIX) (C9113) IV SCH (21:05)
[2016-06-02] MEDS: KCL 20MEQ IN D5/0.45NS 1000ML 1,000 ML IV SCH (21:06)
[2016-06-02 21:29] LABS: MEAN CORPUSCULAR HEMOGLOBIN 29.3 pg (27.0-33.0); MEAN CORPUSCULAR HGB CONC 33.5 g/dl (32.0-36.5); MEAN CORPUSCULAR VOLUME 87.4 fl (80.0-96.0); RED CELL DISTRIBUTION WIDTH 13.7 % (11.5-14.5); WHITE BLOOD COUNT 15.9 K/mm3 (4.0-10.0)
--- NOTE | 2016-06-02 21:47 | HPE ---
DATE OF ADMISSION: 06/02/2016 PRIMARY CARE PHYSICIAN: Randy Pritchett MD CHIEF COMPLAINT: Unresponsiveness. HISTORY OF PRESENT ILLNESS: The patient is a 35-year-old man who was actually recently admitted 02/14/2016, through 02/17/2016, and at that time, the patient was admitted post suicide attempt, an overdose on doxepin. Yesterday evening, the patient's sister reported that she spoke to him around 10 p.m., and the patient sounded "normal. " The patient's girlfriend whom he may or may not have broken up with last night , sent some people over to check up on the patient yesterday evening. They knocked on his door around 11-11:30, without any answer. This morning, the patient's sister went to the house around 11, and again there was no response at the door. His car was in the driveway, that he had not gone to work, and as such, she called her brother who broke down the door. When they entered the house, they found him as what they described as sleeping, and they were unable to awaken him. It was at that point that the patient's sister called --1 at approximately 12-12:30. The patient was brought into the emergency room and was essentially unresponsive. SUBJECTIVE: At this time, the patient is nonverbal, obtunded. He did not display purposeful movement or able to provide any of the history and as such, the history is obtained from review the medical record, and sister and report from the emergency department (ED) provider. PAST MEDICAL HISTORY: 1. Major depressive disorder with suicide attempt. 2. Asthma. 3. Chronic back pain. 4. Questionable seizure disorder. 5. Narcotic abuse. 6. Tobacco abuse. HOME MEDICATIONS: - Tylenol 650 mg every four hours as needed for pain - albuterol sulfate 2.5 mg nebulized every four hours as needed for shortness of breath - Proventil HFA inhaled every four hours as needed for shortness of breath - atorvastatin 20 mg at bedtime - Fioricet one tablet as needed for migraine - fluoxetine 60 mg daily - losartan 50 mg daily - Lyrica 200 mg by mouth twice a day - quetiapine 25 mg at bedtime ALLERGIES: 1. TRAMADOL. 2. MOBIC. 3. AMBIEN. PAST SURGICAL HISTORY: Colonoscopy. SOCIAL HISTORY: There is a documented history of tobacco abuse and narcotic substance abuse. The patient lives alone. He may have broken up with his girlfriend recently. This may be a suicide attempt. FAMILY HISTORY: Noncontributory. REVIEW OF SYSTEMS: Negative other than history of present illness (HPI). PHYSICAL EXAMINATION: VITAL SIGNS: Blood pressure 159/70, pulse 105, Temperature maximum (T-max) 100.9 , respiratory rate 16, oxygen saturation 98% on two liters nasal cannula. GENERAL: He is a middle-aged man, lying in a stretcher. He appears quite pale. He is unresponsive. He is snoring but does not appear to be in acute distress. HEENT: He has pinpoint pupils bilaterally. He has dry mucous membranes. He does not respond to painful stimuli. He does not exhibit purposeful movement. He does have an intact gag. CARDIOVASCULAR: S1, S2. Tachycardic but regular. RESPIRATORY: Clear. ABDOMEN: Benign. There is no recoiling with palpation. EXTREMITIES: No clubbing, cyanosis or edema. He has numerous tattoos. A Garay catheter has been placed. LABORATORY DATA: WBC 21.4, hemoglobin 15.3, hematocrit 45.1, platelet count 290. Chemistry panel : Sodium 141, potassium 3.8, chloride 109, bicarbonate 26, BUN 20, creatinine 1.3 with elevated AST at 121 and elevated CK at 5429. TSH within normal limits. Repeat BMP reveals a sodium of 151, potassium 3.3, chloride 108. Bicarbonate is elevated at 36. Arterial blood gas recently completed reveals a pH of 7.6, pCO2 of 47.3, pO2 of 92. Toxicology is positive for tricyclic antidepressants, but otherwise negative. A UA is fairly unremarkable. IMAGING: The patient did have a CT scan of the head which is read as no change from prior studies and a negative study. He did have a complete hand plain film which revealed normal joint spaces. No evidence of fracture, dislocation or foreign body or calcification. The patient also had a chest x-ray was a negative portable study. ASSESSMENT AND PLAN: This is a 35-year-old man with a second suicide attempt within a four-month period, with drug overdose. Drug overdose and suicide attempt. The patient recently committed a drug overdose suicide attempt and this appears to be a repeat of a similar situation in the past. On his last overdose, he did attempt to kill himself by abusing his doxepin. There is concern that he has overdosed on doxepin, given that his QTC is prolonged and he has pinpoint pupils. I am also concerned for Seroquel overdose as well. I have spoken with poison control in continued conversation started in the emergency room. The patient's QRS had increased to 130, where previously it was just above 100. He had received two amps of bicarbonate following these electrocardiograms (EKGs). Poison control has suggested holding further bicarbonate unless the patient's QRS winds once again. We will continue to check every one-hour EKGs. I will follow his magnesium levels. If they do drop, consider repleting to a level greater than two. We will also monitor his potassium. He did receive two amps of bicarbonate which may have driven down his potassium and caused some hypokalemia. I will add potassium supplementation to his intravenous (IV) fluids. We will continue to check every four-hour complete metabolic profile (CMP) to monitor his liver function, electrolytes, as well as CK to monitor his rhabdomyolysis. He was mildly hypernatremic on his repeat basic metabolic panel (BMP), and I will change his fluids to D5 half- normal saline with 20 mEq of potassium as discussed with poison control. I will recheck another arterial blood gas two hours after the last one. I will admit the patient to the medical intensive care unit for [id number] neurologic checks, frequent laboratories and testing. I have spoken with Dr. Ambrosio that should the patient's respiratory status decline, he may require endotracheal intubation. I did speak with the sister who informed me she was the healthcare proxy, and she did confirm that the patient is a FULL CODE, and she would like invasive mechanical ventilation and resuscitative efforts if needed. The patient will be on a one-to-one sitter. He currently has a nasal trumpet in place and a Garay catheter. Gastrointestinal (GI) and deep venous thrombosis ( DVT) prophylaxis will be initiated. The patient has received two attempts at Narcan, which did not have any significant effect on the patient. We will continue to follow his laboratory studies and be in contact with poison control. The patient will be signed out to Dr. Janny Gallegos this evening, who will follow the patient overnight, and then Dr. Seo's service at 7 a.m. The patient's prognosis at this time is guarded to poor. This has been discussed with the family at his bedside. The patient's sister asked me if I thought the patient was going to live. I did inform her that this is his second very sincere attempt to take his own life, and he may, in fact, succeed as we are unable to determine the exact substances on which he appears to have overdosed. MTDD
[2016-06-02 22:00] VITALS: BP 139/86
[2016-06-02 22:05] LABS: ALBUMIN 3.2 GM/DL (3.2-5.2); ALKALINE PHOSPHATASE 94 U/L (45-117); ALT/SGPT 50 U/L (12-78); ANION GAP 6 MEQ/L (8-16); AST/SGOT 144 U/L (15-37); BILIRUBIN,TOTAL 0.3 MG/DL (0.2-1.0); BLOOD UREA NITROGEN 17 MG/DL (7-18); CALCIUM LEVEL 7.9 MG/DL (8.5-10.1); CARBON DIOXIDE LEVEL 35 MEQ/L (21-32); CHLORIDE LEVEL 109 MEQ/L (98-107); GLOMERULAR FILTRATION RATE > 60.0 (>60); GLUCOSE, FASTING 106 MG/DL (70-105); POTASSIUM SERUM 3.5 MEQ/L (3.5-5.1); SODIUM LEVEL 150 MEQ/L (136-145); TOTAL PROTEIN 6.1 GM/DL (6.4-8.2)
[2016-06-02 23:00] VITALS: BP 150/94
[2016-06-03] VITALS (23 sets, daily range): BP systolic 98–144; BP diastolic 57–90
[2016-06-03 02:29] LABS: ALBUMIN 3.4 GM/DL (3.2-5.2); ALBUMIN/GLOBULIN RATIO 1.26 (1.00-1.93); ALKALINE PHOSPHATASE 93 U/L (45-117); ALT/SGPT 55 U/L (12-78); ANION GAP 8 MEQ/L (8-16); AST/SGOT 158 U/L (15-37); BILIRUBIN,TOTAL 0.3 MG/DL (0.2-1.0); BLOOD UREA NITROGEN 14 MG/DL (7-18); CALCIUM LEVEL 7.8 MG/DL (8.5-10.1); CARBON DIOXIDE LEVEL 32 MEQ/L (21-32); CHLORIDE LEVEL 109 MEQ/L (98-107); CREATININE FOR GFR 1.14 MG/DL (0.70-1.30); GLOMERULAR FILTRATION RATE > 60.0 (>60); GLUCOSE, FASTING 111 MG/DL (70-105); POTASSIUM SERUM 3.5 MEQ/L (3.5-5.1); SODIUM LEVEL 149 MEQ/L (136-145); TOTAL PROTEIN 6.1 GM/DL (6.4-8.2)
[2016-06-03 05:55] LABS: BASO # 0.2 K/mm3 (0.0-0.2); BASO % 0.9 % (0.0-1.0); EOS # 0.2 K/mm3 (0.0-0.50); EOS % 1.1 % (0.0-3.0); LARGE UNSTAINED CELL # 0.2 K/mm3 (0.0-0.4); LARGE UNSTAINED CELL % 1.4 % (0.0-4.0); LYMPH # 1.6 K/mm3 (1.5-4.5); LYMPH % 8.6 % (24.0-44.0); MEAN CORPUSCULAR HEMOGLOBIN 29.3 pg (27.0-33.0); MEAN CORPUSCULAR HGB CONC 33.4 g/dl (32.0-36.5); MEAN CORPUSCULAR VOLUME 87.8 fl (80.0-96.0); MONO # 0.8 K/mm3 (0.0-0.8); MONO % 5.1 % (0.0-5.0); NEUTROPHILS # 13.3 K/mm3 (1.8-7.7); NEUTROPHILS % 82.9 % (36.0-66.0); PLATELET COUNT, AUTOMATED 229 k/mm3 (150-450); RED CELL DISTRIBUTION WIDTH 13.7 % (11.5-14.5)
[2016-06-03 05:56] LABS: ABG BASE EXCESS 4.9 (-2.0-2.0); ABG HCO3 29.6 MEQ/L (22.0-26.0); ABG PARTIAL PRESSURE CO2 43.9 mmHg (35.0-45.0); ABG PARTIAL PRESSURE O2 112.8 mmHg (75.0-100.0); ABG STANDARD HCO3 28.9 MEQ/L (22.0-26.0); ABG pH (ARTERIAL) 7.447 UNITS (7.350-7.450)
[2016-06-03] MEDS: KCL 20MEQ IN D5/0.45NS 1000ML 1,000 ML IV SCH ×3 (06:20→23:52)
[2016-06-03 06:36] LABS: ALBUMIN 3.2 GM/DL (3.2-5.2); ALBUMIN/GLOBULIN RATIO 1.14 (1.00-1.93); ALKALINE PHOSPHATASE 87 U/L (45-117); ALT/SGPT 54 U/L (12-78); ANION GAP 8 MEQ/L (8-16); AST/SGOT 158 U/L (15-37); BILIRUBIN,TOTAL 0.4 MG/DL (0.2-1.0); BLOOD UREA NITROGEN 14 MG/DL (7-18); CALCIUM LEVEL 7.9 MG/DL (8.5-10.1); CARBON DIOXIDE LEVEL 31 MEQ/L (21-32); CHLORIDE LEVEL 110 MEQ/L (98-107); CREATININE FOR GFR 1.11 MG/DL (0.70-1.30); GLOMERULAR FILTRATION RATE > 60.0 (>60); GLUCOSE, FASTING 101 MG/DL (70-105); MAGNESIUM LEVEL 2.3 MG/DL (1.8-2.4); POTASSIUM SERUM 3.5 MEQ/L (3.5-5.1); SODIUM LEVEL 149 MEQ/L (136-145)
[2016-06-03] MEDS: ENOXAPARIN 40 MG/0.4 ML SYRINGE (J1650) SC SCH (09:33)
[2016-06-03 10:33] LABS: ALBUMIN 3.1 GM/DL (3.2-5.2); ALBUMIN/GLOBULIN RATIO 1.29 (1.00-1.93); ALKALINE PHOSPHATASE 93 U/L (45-117); ALT/SGPT 62 U/L (12-78); ANION GAP 7 MEQ/L (8-16); AST/SGOT 154 U/L (15-37); BILIRUBIN,TOTAL 0.4 MG/DL (0.2-1.0); BLOOD UREA NITROGEN 14 MG/DL (7-18); CARBON DIOXIDE LEVEL 31 MEQ/L (21-32); CHLORIDE LEVEL 111 MEQ/L (98-107); CREATININE FOR GFR 1.17 MG/DL (0.70-1.30); GLOMERULAR FILTRATION RATE > 60.0 (>60); GLUCOSE, FASTING 106 MG/DL (70-105); MAGNESIUM LEVEL 2.3 MG/DL (1.8-2.4); POTASSIUM SERUM 3.7 MEQ/L (3.5-5.1); SODIUM LEVEL 149 MEQ/L (136-145); TOTAL PROTEIN 5.5 GM/DL (6.4-8.2)
--- NOTE | 2016-06-03 11:18 | REP ---
Portable chest, single AP view, the patient semi upright: Comparisons are the portable chest of 02/14/2069, PA and lateral chest of 01/02/2011. The lung quinones are clear. The cardiac size is normal The darryl, mediastinum, and bony thorax are unremarkable. Impression: Negative portable chest. Signed by Pierce íDaz MD 06/02/2016 01:53 P
--- NOTE | 2016-06-03 11:18 | REP ---
CT of the brain without IV contrast: Comparisons are 02/03/2016 and 10/24/2008. There is no hemorrhage, edema, mass effect or midline shift. The cortical stripe is unremarkable. Ventricles are normal size and midline. The visualized sinuses and mastoids are unremarkable. Impression: Negative CT scan of the brain. There is no change from prior studies. Signed by Pierce Díaz MD 06/02/2016 01:51 P
--- NOTE | 2016-06-03 11:23 | REP ---
Portable right hand four views: Note from the technologist states the patient is unresponsive and difficult to position and there is bruising on "knuckle" of the the index finger There is a electronic device attached to the distal phalanx of the index finger. Visualized portions demonstrate mineralization and joint spaces are normal. No evidence of fracture or dislocation. No foreign body or calcification. Signed by Pierce Díaz MD 06/02/2016 02:37 P
[2016-06-03 13:49] LABS: ALBUMIN/GLOBULIN RATIO 1.25 (1.00-1.93); ALKALINE PHOSPHATASE 85 U/L (45-117); ALT/SGPT 53 U/L (12-78); ANION GAP 6 MEQ/L (8-16); AST/SGOT 142 U/L (15-37); BILIRUBIN,TOTAL 0.4 MG/DL (0.2-1.0); BLOOD UREA NITROGEN 13 MG/DL (7-18); CALCIUM LEVEL 7.9 MG/DL (8.5-10.1); CARBON DIOXIDE LEVEL 31 MEQ/L (21-32); CHLORIDE LEVEL 110 MEQ/L (98-107); CREATININE FOR GFR 1.11 MG/DL (0.70-1.30); GLOMERULAR FILTRATION RATE > 60.0 (>60); GLUCOSE, FASTING 103 MG/DL (70-105); MAGNESIUM LEVEL 2.2 MG/DL (1.8-2.4); POTASSIUM SERUM 3.6 MEQ/L (3.5-5.1); SODIUM LEVEL 147 MEQ/L (136-145); TOTAL PROTEIN 5.4 GM/DL (6.4-8.2)
--- NOTE | 2016-06-03 16:50 | IPN ---
DATE: 06/03/2016 SUBJECTIVE: This is a 35-year-old male who was seen and examined at bedside. Overnight was admitted for doxepin overdose. The patient this morning initially denied using doxepin. However, upon discussion with him regarding his laboratory study, he finally admitted. He states that the previous day he was complaining of migraine headache and his regular Seroquel and butalbital-Tylenol were not working and somehow found in his computer case a bottle of doxepin. He then took 10 pills that were in the bottle. Per friend, the patient was reportedly drinking the day before, mostly beers, however, unable to recall how many he was drinking. He continues to adamantly deny attempt for suicidal ideation and states that if he wants to end his life it will be easy because he can just go and find something and "blow out his brain." He previously had a lot of guns. However, since his overdose in February 2016, these have been since removed from his home. He still reports a very dry mouth but no headache. No dizziness, lightheadedness , fevers, chills, nausea, vomiting, chest pain, or shortness of breath. OBJECTIVE: VITAL SIGNS: Blood pressure 114/72, heart rate 101, respiratory rate 24, pulse oximetry 98% on two liters nasal cannula. Intake and output the last 24 hours, 1200 and 600. GENERAL: The patient was lying flat angle, comfortable, in no acute distress. Friend at bedside. He appears older than stated age, somewhat disheveled. The patient is awake, alert, and oriented to person, place, and time. However, he thinks he is 34 years old. HEENT: Normocephalic, atraumatic. Very dry oral mucosa. Pupils are equal and reactive to light, still somewhat constricted. Extraocular movement intact. CHEST: Symmetric chest rise. No accessory muscle use. Breath sounds were clear to auscultation bilaterally. HEART: Regular rate and rhythm. S1, S2 present. ABDOMEN: Soft, nontender, nondistended. Bowel sounds present. No guarding. No rebound. GENITOURINARY: He has an indwelling Garay with very minimal amount of dark yellow urine. SKIN: He has multiple tattoos throughout his body. LABORATORY DATA: WBC 16, hemoglobin 13.7, hematocrit 41, platelets 229. Sodium 149, potassium 3.7, chloride 111, carbon dioxide 31, BUN 14, creatinine 1.17, glucose 106, calcium 8, magnesium 2.3, total bilirubin 0.4, AST 154, ALT 62, alkaline phosphatase 93, CK of 5366, improved from 5862, total protein 5.5. Gas this morning pH 7.47, pCO2 43.9, pO2 112.8. Toxicology positive for TCA. UA shows trace ketones, 2+ blood, 5 RBCs. MRSA screen pending. Urine culture pending. X-ray on admission showed no foreign body calcification. No fractures or dislocation. Chest x-ray negative portable. CT head without acute pathology. IMPRESSION AND PLAN: Mr. Jimenez is a 35-year-old male with prior history of doxepin overdose who was brought to the emergency department (ED) by emergency medical services (EMS) for unresponsiveness with toxicology screen positive for tricyclic antidepressant (TCA). 1. Intentional overdose and suicide attempt. He has had a prior attempt of overdose on doxepin. He was given 2 ampules of bicarbonate in the ED and poison control was contacted, who recommended no further bicarbonate needed due to his more narrow QRS. QRS duration this morning on EKG was 118, QTc still prolonged. Magnesium and potassium still within expected range. He is receiving D5 half normal saline with potassium chloride. Due to his overdose, the patient will remain with a one-to-one sitter, plastic wares with meals. He was advanced to a clear liquid diet this morning. His respiratory status continues to be stable without concern for decompensation at this time. Whenever the patient is medically cleared, the patient will require psychiatry evaluation for inpatient mental health unit (IMHU) admission. We will followup with poison control's recommendation. Repeat EKG now and if QRS is still wide, we will consider adding bicarbonate to his maintenance IV fluid. 2. Rhabdomyolysis. Creatine kinase (CK) remains elevated. However, it was mildly improved. This is likely secondary to prolonged immobile state as the patient was found down by family and also medication use. Continue fluid hydration. 3. Transaminitis. Could be secondary to medication use. It is somewhat improved. Repeat laboratory studies in 4-6 hours. 4. Hypernatremia. He previously received two liter boluses of normal saline in the emergency room (ER). He is now on half-normal D5 with potassium chloride. Recheck chemistry in four hours. 5. Leukocytosis. Repeat laboratories this morning showed improvement compared to yesterday. Chest x-ray on admission showed no acute cardiopulmonary disease. As he was down and was drinking, he also is at risk for aspiration pneumonia. Although at this time, he does not have any other indication for infection. His leukocytosis could be secondary to stress reaction versus hemoconcentration versus infection. Continue to monitor condition closely and need for antibiotic will be based on clinical progression. 6. Tobacco abuse. The patient reportedly chews tobacco but intermittently. He may have a nicotine patch should he go through withdrawals but reportedly he does not chew a lot. 7. Major depressive disorder. The patient denied any stressors in his life. He has had a prior and current suicide attempt. Plan as mentioned above. 8. Chronic back pain. He reportedly was on Lyrica outpatient. However, due to current overdose, pain medication will be on hold. 9. History of asthma. He receives albuterol outpatient. He has Xopenex ordered at this time. 10. The patient reportedly has Lipitor and losartan outpatient, though he does not report a history of hypertension or hyperlipidemia. We will have to reevaluate him when his mentation is improved for clarification. 11. Questionable history of seizure disorder. Due to overdose on doxepin, he has Ativan ordered as needed. DISPOSITION: The patient currently is not medically stable and will continue to be monitored in the intensive care unit (ICU). When he is medically cleared, he will require evaluation by psychiatry for admission into inpatient mental health unit (IMHU). My preceptor for this patient encounter was Dr. Nazario Seo. The preceptor was physically present in the building during the encounter and was fully available as needed. All aspects of the patient interview, examination, medical decision making process, and medical care plan development were reviewed and approved by the preceptor. The preceptor is aware and concurs with the plan as stated in the body of this note and will attest to such by his/her co-signature. VERNELL
--- NOTE | 2016-06-03 19:20 | ECGEPIP ---
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
--- NOTE | 2016-06-03 19:21 | ECGEPIP ---
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
--- NOTE | 2016-06-03 19:22 | ECGEPIP ---
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
--- NOTE | 2016-06-03 19:27 | ECGEPIP ---
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
[2016-06-03 19:46] LABS: ALBUMIN 2.8 GM/DL (3.2-5.2); ALBUMIN/GLOBULIN RATIO 1.17 (1.00-1.93); ALKALINE PHOSPHATASE 85 U/L (45-117); ALT/SGPT 54 U/L (12-78); ANION GAP 5 MEQ/L (8-16); AST/SGOT 127 U/L (15-37); BILIRUBIN,TOTAL 0.4 MG/DL (0.2-1.0); BLOOD UREA NITROGEN 12 MG/DL (7-18); CALCIUM LEVEL 7.7 MG/DL (8.5-10.1); CARBON DIOXIDE LEVEL 31 MEQ/L (21-32); CHLORIDE LEVEL 109 MEQ/L (98-107); CREATININE FOR GFR 1.16 MG/DL (0.70-1.30); GLOMERULAR FILTRATION RATE > 60.0 (>60); GLUCOSE, FASTING 105 MG/DL (70-105); MAGNESIUM LEVEL 2.3 MG/DL (1.8-2.4); POTASSIUM SERUM 3.8 MEQ/L (3.5-5.1); SODIUM LEVEL 145 MEQ/L (136-145); TOTAL PROTEIN 5.2 GM/DL (6.4-8.2)
--- NOTE | 2016-06-03 20:38 | ECGEPIP ---
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
--- NOTE | 2016-06-03 20:41 | ECGEPIP ---
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
--- NOTE | 2016-06-03 20:46 | ECGEPIP ---
Stationary ECG Study 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
[2016-06-03] MEDS: PANTOPRAZOLE 40MG INJ (PROTONIX) (C9113) IV SCH (21:24)
[2016-06-03 21:49] LABS: ALBUMIN 2.8 GM/DL (3.2-5.2); ALBUMIN/GLOBULIN RATIO 1.04 (1.00-1.93); ALKALINE PHOSPHATASE 84 U/L (45-117); ALT/SGPT 52 U/L (12-78); ANION GAP 6 MEQ/L (8-16); AST/SGOT 119 U/L (15-37); BILIRUBIN,TOTAL 0.4 MG/DL (0.2-1.0); BLOOD UREA NITROGEN 12 MG/DL (7-18); CALCIUM LEVEL 7.9 MG/DL (8.5-10.1); CARBON DIOXIDE LEVEL 30 MEQ/L (21-32); CHLORIDE LEVEL 109 MEQ/L (98-107); CREATININE FOR GFR 1.16 MG/DL (0.70-1.30); GLOMERULAR FILTRATION RATE > 60.0 (>60); GLUCOSE, FASTING 108 MG/DL (70-105); MAGNESIUM LEVEL 2.1 MG/DL (1.8-2.4); POTASSIUM SERUM 3.9 MEQ/L (3.5-5.1); SODIUM LEVEL 145 MEQ/L (136-145); TOTAL PROTEIN 5.5 GM/DL (6.4-8.2)
[2016-06-04] VITALS: BP 118/57
[2016-06-04 00:45] VITALS: BP 134/68
[2016-06-04] MEDS: ALBUTEROL 90 MCG/ACT 8GM HFA INHALER INH PRN (02:18)
[2016-06-04 02:27] LABS: ALBUMIN 2.7 GM/DL (3.2-5.2); ALKALINE PHOSPHATASE 76 U/L (45-117); ALT/SGPT 49 U/L (12-78); ANION GAP 6 MEQ/L (8-16); AST/SGOT 112 U/L (15-37); BILIRUBIN,TOTAL 0.4 MG/DL (0.2-1.0); BLOOD UREA NITROGEN 10 MG/DL (7-18); CALCIUM LEVEL 7.7 MG/DL (8.5-10.1); CARBON DIOXIDE LEVEL 30 MEQ/L (21-32); CHLORIDE LEVEL 106 MEQ/L (98-107); CREATININE FOR GFR 1.18 MG/DL (0.70-1.30); GLOMERULAR FILTRATION RATE > 60.0 (>60); GLUCOSE, FASTING 94 MG/DL (70-105); MAGNESIUM LEVEL 2.1 MG/DL (1.8-2.4); POTASSIUM SERUM 3.7 MEQ/L (3.5-5.1); SODIUM LEVEL 142 MEQ/L (136-145); TOTAL PROTEIN 5.4 GM/DL (6.4-8.2)
[2016-06-04 05:14] VITALS: BP 124/73
[2016-06-04] MEDS: KCL 20MEQ IN D5/0.45NS 1000ML 1,000 ML IV SCH ×2 (05:24→16:30)
[2016-06-04 05:37] LABS: MEAN CORPUSCULAR HEMOGLOBIN 29.2 pg (27.0-33.0); MEAN CORPUSCULAR HGB CONC 32.8 g/dl (32.0-36.5); RED CELL DISTRIBUTION WIDTH 13.7 % (11.5-14.5); WHITE BLOOD COUNT 11.5 K/mm3 (4.0-10.0)
[2016-06-04 05:46] LABS: ALBUMIN 2.7 GM/DL (3.2-5.2); ALBUMIN/GLOBULIN RATIO 0.93 (1.00-1.93); ALKALINE PHOSPHATASE 81 U/L (45-117); ALT/SGPT 51 U/L (12-78); ANION GAP 6 MEQ/L (8-16); AST/SGOT 114 U/L (15-37); BILIRUBIN,TOTAL 0.3 MG/DL (0.2-1.0); BLOOD UREA NITROGEN 8 MG/DL (7-18); CALCIUM LEVEL 7.7 MG/DL (8.5-10.1); CARBON DIOXIDE LEVEL 28 MEQ/L (21-32); CHLORIDE LEVEL 108 MEQ/L (98-107); CREATININE FOR GFR 1.05 MG/DL (0.70-1.30); GLOMERULAR FILTRATION RATE > 60.0 (>60); GLUCOSE, FASTING 96 MG/DL (70-105); POTASSIUM SERUM 3.7 MEQ/L (3.5-5.1); SODIUM LEVEL 142 MEQ/L (136-145); TOTAL PROTEIN 5.6 GM/DL (6.4-8.2)
[2016-06-04 08:00] VITALS: BP 107/70
[2016-06-04] MEDS: ENOXAPARIN 40 MG/0.4 ML SYRINGE (J1650) SC SCH (09:59)
[2016-06-04 14:45] VITALS: BP 129/75
--- NOTE | 2016-06-04 21:10 | IPN ---
DATE OF VISIT: 06/04/2016 SUBJECTIVE: This is a 35-year-old male who was seen and examined at the bedside. Yesterday afternoon the patient was transferred out of the intensive care unit (ICU) to the progressive care unit (PCU). He reportedly is more alert and awake and conversational. He complained of numbness to his three fingers last night; otherwise no chest pain, shortness of breath, palpitations, nausea, vomiting, diarrhea, constipation. His diet was advanced to full liquids. Reports dry mouth. OBJECTIVE: VITAL SIGNS: Blood pressure 124/73, heart rate 88, temperature 97.2, respiratory rate 18, pulse oximetry 96% on room air. Intake and output last 24 hours was 2300 and 1010 for output, one bowel movement documented. GENERAL: The patient is sleeping, comfortable, no acute respiratory or psychiatric distress. He was easily arousable on verbal command, pleasant and cooperative upon awakening. Appears to older than stated age, somewhat disheveled. The patient is awake, alert, and oriented to person, place, and time. However, he thinks he is 34 years old. HEENT: Normocephalic atraumatic. Still dry oral mucosa but less so compared to yesterday. Extraocular muscles intact. Pupils equal, round, reactive to light. NECK: Supple, trachea midline. No jugular venous distention (JVD). CHEST: Symmetric chest rise. No accessory muscle use. Breath sounds were diminished but clear bilaterally. HEART: Regular rate and rhythm. S1, S2 present. ABDOMEN: Soft, nontender, nondistended. Bowel sounds present. No guarding. No rebound. EXTREMITIES: No pedal edema, pedal pulses present bilaterally. Has multiple tattoos throughout his body. NEUROLOGIC: Sensory is intact. Strength 5/5 in all extremities with the exception of his right hand where he reported decreased sensation by his first three digits strength is 4/5. Pulses are present in all extremities. LABORATORY DATA: WBC 11.5 yesterday was 16, hemoglobin 12.2, hematocrit 37.1, platelets 210. Sodium 142, potassium 3.7, chloride 108, carbon dioxide 28, BUN 8, creatinine 1.05, glucose 96, calcium 7.7, magnesium 2, AST 114, ALT 51, alkaline phosphatase 81, CK 3262. Methicillin resistant Staphylococcus aureus (MRSA) screen negative. Urine culture no growth. IMPRESSION AND PLAN: Mr. Jimenze in a 35-year-old male with history of suicidal attempts who presented to the emergency department (ED) for unresponsiveness and again found to have another attempt at overdose. 1. Toxic encephalopathy in setting of drug overdose, now improving. Was taking Doxepin that was not prescribed. He is status post bicarb administration. His EKG was repeated QRS was 115. On review of prior records it appears that he normally runs anywhere from 113-118 for QRS. Magnesium and potassium still within expected range. The patient will continue to have one to one sitter. His diet will be advanced today. Due to the patient's improved condition we will transfer him to med-surg today. 2. Rhabdomyolysis. CK is improved; however still elevated. Continue with fluids administration. He is currently on D5 1/2 normal with potassium chloride. 3. Transaminitis. This is likely secondary to medication. It continues to be improving. 4. Hypernatremia. Resolved. He continues to be on intravenous fluid administration. 5. Leukocytosis. Continue to show improvement. No administration of antibiotics at this time. Suspect leukocytosis was likely secondary to stress reaction and hemoconcentration when he first presented. Continue to monitor. 6. Anemia. Likely secondary to dilutional as all of his cell lines have also decreased. 7. Major depressive disorder leading him to have suicide attempts. 8. Chronic back pain due to overdose and rhabdomyolysis, elevated liver function tests. Medication is currently on hold at this time. 9. History of asthma. Continue Xopenex treatment. 10. Deep venous thrombosis (DVT) prophylaxis. Sequential compression device (SCD), Thromboembolic deterrent stockings (KARI) and Lovenox. DISPOSITION: The patient will be continued to be monitored on the medical-surgical floor. He continues to have rhabdomyolysis though it is improved. When he is medically cleared he will require evaluation by psychiatry for admission into the intensive medical health unit (IMHU). My preceptor for this patient encounter was Dr. Lentz. The preceptor was physically present in the building during the encounter and was fully available as needed. All aspects of the patient interview, examination, medical decision making process, and medical care plan development were reviewed and approved by the preceptor. The preceptor is aware and concurs with the plan as stated in the body of this note and will attest to such by his/her co-signature. VERNELL
--- NOTE | 2016-06-04 21:19 | EDDOCDS ---
Nurse's Notes [facility] Name: Ian Art Age: 35 yrs Sex: Male : 1980 Arrival Date: 06/02/2016 Time: 13:14 Bed 3 Private MD: Diagnosis: Other psychoactive substance dependence with intoxication;Altered mental status, unspecified Presentation: 06/02 13:29 Presenting complaint: Patient states: pts sister had not heard from him today - pml concerned as he has recently broken up with his GF - pts landlord broke into residence and found pt unresponsive. ems arrived and pt unresponsive with sinus tach and spontaneous resps. narcan given IV with no effect. Adult Sepsis Screening: Patient has new or worsening altered mentation (1 point). Patient's respiratory rate is less than 22. Systolic blood pressure is greater than 100. Patient has a qSOFA score of 1- Negative Sepsis Screen. Suicide/Homicide risk assessment- Unable to assess, the patient has an altered level of consciousness. 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 Transition of care: patient was not received from another setting of care. 13:29 Acuity: JOYCE Level 2 pml 13:29 Method Of Arrival: Ambulance pml Triage Assessment: 13:31 General: Appears well nourished, well groomed. Pain: Unable to use pain scale. Patient pml is unresponsive. HIV screening NA for this visit Offered previously. The patient is triaged at the bedside. See Assessment in Nurses Notes section of ED record. Neurological: Level of Consciousness is unresponsive, Pupils are PERRLA, constricted. Cardiovascular: Capillary refill < 3 seconds Rhythm is sinus tachycardia No ectopy. Respiratory: Airway is patent Respiratory effort is even, unlabored, snoring respirations Respiratory pattern is regular, symmetrical, snoring. GI: Abdomen is non- distended. Derm: Skin is pink, warm & dry. Skin temperature is hot. Historical: - Allergies: Tramadol HClseizure; Mobic (Anaphylaxis); Ambien; Ambien; Mobic (Anaphylaxis); Tramadol HClseizure; - Home Meds: 1. fluoxetine 20 mg Oral cap 3 caps once daily (Last dose: Unknown) 2. quetiapine 25 mg oral tab 1 tab nightly (Last dose: Unknown) 3. losartan 50 mg oral tab 1 tab once daily (Last dose: Unknown) 4. pregabalin 200 mg Oral cap 1 cap 2 times per day (Last dose: Unknown) 5. doxepin 100 mg Oral cap bedtime quantity 30 -- filled 06/09/2015 bottle empty (Last dose: Unknown) 6. atorvastatin 20 mg oral tab 1 tab once daily (Last dose: Unknown) - PMHx: Asthma; Chronic Back pain; Depression; Asthma; Chronic Back pain; Depression; - PSHx: Colonoscopy; Colonoscopy; - Social history: Smoking status: unknown if patient ever smoked tobacco. No barriers to communication noted, The patient speaks fluent Italian, Speaks appropriately for age. - Family history: Not pertinent. - : The pt / caregiver states he / she is not on anticoagulants. Home medication list is obtained from [employer] import data, pill bottles, Unable to Verify Home Med List with the patient / caregiver. - Exposure Risk Screening:: Unable to Assess. Screenin:17 Screening information is obtained from the patient. Fall risk: Unable to Assess. pml Assistance ADL's: unable to assess. Abuse/DV Screen: The patient / caregiver reports he/she is: pt cannot be assessed for living situation at this time. Nutritional screening: Unable to Assess. Advance Directives: Unable to assess Advance Directive status due to pt condition. home support is adequate. Assessment: 13:34 General: see triage note. pml 13:44 General: pt had brief period of apnea returning from CT - no noted change in o2 pml saturation. pt remains with gag reflex intact. nasal trumpet 32 martiniquais placed - pt withdrew from stimulus during placement of trumpet but tolerates airway without distress once placed . 14:18 General: family at bedside. pt remains unresponsive, nasal airway in place. resps easy pml and unlabored, skin p/w/d. sinus tach on monitor in 120s. chavez to gravity drainage. 15:00 General: resting on stretcher, pupils remain constricted and responsive, pt has periods pml of reaching towards nasal airway, unresponsive to stimuli. sinus tach on monitor. skin p/w/d. 15:44 General: Appears in no apparent distress, well nourished, well groomed. Neurological: pml Level of Consciousness is unresponsive. Cardiovascular: Capillary refill < 3 seconds Rhythm is sinus rhythm No ectopy. Respiratory: Airway is patent Respiratory effort is even, unlabored. Respiratory: Airway via nasal trumpet. GI: Abdomen is non- distended. : Chavez in place to gravity drainage. Derm: Skin is pink, warm & dry. 15:54 General: coughing fit - pt expectorated moderate sized thick sputum. protecting airway pml without s/s of aspiration. . 16:23 General: Appears well nourished, well groomed. Neurological: Level of Consciousness is pml unresponsive. Cardiovascular: Capillary refill < 3 seconds Rhythm is sinus tachycardia No ectopy. Respiratory: Airway is patent via nasal trumpet Respiratory effort is even, unlabored. GI: Abdomen is non- distended. Derm: Skin is pink, warm & dry. 16:40 General: pt with periods of coughing and sitting upright and reaching for nasal pml trumpet, each lasting less than 3 seconds. family at bedside concerned pt is becoming responsive. pt remains unresponsive to painful stimuli, no purposeful movements. attempts to explain this to family not received. . 16:58 General: Appears well nourished, well groomed. Pain: Unable to use pain scale. Patient pml is unresponsive. Neurological: Level of Consciousness is unresponsive. Cardiovascular: Capillary refill < 3 seconds Rhythm is sinus tachycardia No ectopy. Respiratory: Airway is patent via nasal trumpet Respiratory effort is even, unlabored. Derm: Skin is pink, warm & dry. 17:00 General: Tardive dyskinesia noted. MD Duarte aware, new orders obtained and administered. pml . 17:19 General: pt with period of decreased CO2 levels on capnography, MD Duarte aware, repeat pml blood gases ordered. Pt repositioned with improvements and co2s returned to 33mmHG. 17:44 General: Appears well nourished, well groomed. Pain: Unable to use pain scale. Patient pml is unresponsive. Neurological: Level of Consciousness is unresponsive. Cardiovascular: Capillary refill < 3 seconds Rhythm is sinus tachycardia No ectopy. Respiratory: Airway is patent via nasal trumpet Respiratory effort is even, unlabored, Respiratory pattern is symmetrical. Derm: Skin is pink, warm & dry. 19:02 General: Appears in no apparent distress, well developed, well nourished, well groomed, jp6 Behavior is unresponive. Neurological: Level of Consciousness is unresponsive. EENT: No deficits noted. Cardiovascular: Capillary refill < 3 seconds Heart tones S1 S2 present Rhythm is sinus tachycardia. Respiratory: Airway is patent via nasal trumpet Respiratory effort is even, unlabored, Respiratory pattern is symmetrical, Breath sounds are clear bilaterally. GI: Abdomen is flat, non- distended Bowel sounds present X 4 quads. : Chavez in place to gravity drainage Urine is clear. Derm: Skin is pink, warm & dry. Musculoskeletal: No deficits noted. 20:05 Reassessment: Patient appears in no apparent distress at this time. Patient states jp6 symptoms have not improved. General: Behavior is remains unresponsive. Neurological: Level of Consciousness is unresponsive, Pupils are constricted. Cardiovascular: Rhythm is sinus tachycardia. Respiratory: Airway is patent Respiratory effort is even, unlabored, Respiratory pattern is symmetrical. Derm: Skin is pink, warm & dry. Vital Signs: 13:16 BP 169 / 102 (auto/); pml 13:17 BP 169 / 102; Pulse 123; Resp 16; Temp 100.9(TE); Pulse Ox 97% on 10% Non-rebreather jml1 mask; Weight 103.24 kg; 13:17 Pulse 122 MON; Pulse Ox 97% ; pml 13:25 Pulse 123 MON; Pulse Ox 98% ; pml 13:25 BP 174 / 95 (auto/); pml 13:35 BP 154 / 81 (auto/); pml 13:37 Pulse 122 MON; Pulse Ox 99% ; pml 13:45 Pulse 128 MON; Pulse Ox 99% ; pml 13:45 BP 156 / 82 (auto/); pml 13:55 Pulse 127 MON; Pulse Ox 99% ; pml 13:55 BP 152 / 84 (auto/); pml 14:05 Pulse 126 MON; Pulse Ox 99% ; pml 14:05 BP 151 / 81 (auto/); pml 14:15 Pulse 123 MON; Pulse Ox 99% ; pml 14:15 BP 155 / 79 (auto/); pml 14:25 Pulse 120 MON; Pulse Ox 99% ; pml 14:25 BP 156 / 78 (auto/); pml 14:35 Pulse 119 MON; Pulse Ox 99% ; pml 14:35 BP 150 / 77 (auto/); pml 14:42 Temp 99.0(TE); jml1 14:45 Pulse 119 MON; Pulse Ox 98% ; pml 14:45 BP 155 / 72 (auto/); pml 14:55 Pulse 116 MON; Pulse Ox 99% ; pml 14:55 BP 146 / 72 (auto/); pml 15:05 Pulse 119 MON; Pulse Ox 99% ; pml 15:05 BP 149 / 72 (auto/); pml 15:15 Pulse 121 MON; Pulse Ox 99% ; pml 15:15 BP 154 / 81 (auto/); pml 15:25 Pulse 120 MON; Pulse Ox 100% ; pml 15:25 BP 158 / 76 (auto/); pml 15:35 Pulse 118 MON; Pulse Ox 96% ; pml 15:35 BP 161 / 88 (auto/); pml 15:43 Temp 98.3(R); pml 15:43 Pulse Ox 96% on 2 lpm NC; pml 15:45 Pulse 121 MON; Pulse Ox 96% ; pml 15:45 BP 141 / 79 (auto/); pml 15:55 Pulse 122 MON; Pulse Ox 96% ; pml 15:55 BP 137 / 67 (auto/); pml 16:05 Pulse 121 MON; Pulse Ox 95% ; pml 16:05 BP 131 / 65 (auto/); pml 16:15 Pulse 118 MON; Pulse Ox 94% ; pml 16:15 BP 132 / 73 (auto/); pml 16:25 Pulse 110 MON; Pulse Ox 96% ; pml 16:25 BP 158 / 84 (auto/); pml 16:35 Pulse 110 MON; Pulse Ox 96% ; pml 16:35 BP 150 / 80 (auto/); pml 16:45 Pulse 109 MON; Pulse Ox 94% ; pml 16:45 BP 154 / 80 (auto/); pml 16:55 Pulse 107 MON; Pulse Ox 97% ; pml 16:55 BP 160 / 81 (auto/); pml 17:05 Pulse 112 MON; Pulse Ox 98% ; pml 17:05 BP 156 / 78 (auto/); pml 17:15 Pulse 105 MON; Pulse Ox 98% ; pml 17:15 BP 159 / 70 (auto/); pml 17:45 BP 128 / 70 (auto/); jp6 17:45 Pulse 107 MON; Pulse Ox 97% ; jp6 17:55 BP 128 / 75 (auto/); jp6 17:55 Pulse 107 MON; Pulse Ox 97% ; jp6 18:05 BP 130 / 77 (auto/); jp6 18:05 Pulse 107 MON; Pulse Ox 98% ; jp6 18:15 BP 157 / 70 (auto/); jp6 18:15 Pulse 106 MON; Pulse Ox 98% ; jp6 18:25 BP 156 / 70 (auto/); jp6 18:25 Pulse 104 MON; Pulse Ox 98% ; jp6 18:35 BP 158 / 70 (auto/); jp6 18:35 Pulse 102 MON; Pulse Ox 98% ; jp6 18:45 BP 153 / 71 (auto/); jp6 18:45 Pulse 102 MON; Pulse Ox 98% ; jp6 18:55 BP 144 / 66 (auto/); jp6 18:55 Pulse 101 MON; Pulse Ox 99% ; jp6 19:05 BP 143 / 63 (auto/); jp6 19:05 Pulse 101 MON; Pulse Ox 99% ; jp6 19:15 BP 152 / 65 (auto/); jp6 19:15 Pulse 102 MON; Pulse Ox 99% ; jp6 19:25 BP 152 / 63 (auto/); jp6 19:25 Pulse 101 MON; Pulse Ox 99% ; jp6 19:35 BP 155 / 63 (auto/); jp6 19:35 Pulse 103 MON; Pulse Ox 99% ; jp6 19:45 BP 165 / 81 (auto/); jp6 19:45 Pulse 104 MON; Pulse Ox 99% ; jp6 19:55 BP 164 / 75 (auto/); jp6 19:55 Pulse 105 MON; Pulse Ox 99% ; jp6 20:00 Pulse 107 MON; Pulse Ox 99% ; jp6 20:00 Resp 10; Temp 98.3(R); jp6 Vitals: 13:31 Log In Time N/A - ambulance arrival. pml 15:43 ETCO2 34mmHg. pml ED Course: 13:15 Patient visited by Manjula Kimbrough, Clinical Engineering Manager. deg 13:15 Juana Patterson,RN is Primary Nurse. deg 13:15 Patient moved to Waiting deg 13:15 Patient moved to 3 deg 13:17 Unable to instruct regarding the plan of care due to patient condition. Patient has pml correct armband on for positive identification. Placed in gown. Bed in low position. Side rails up X2. duct installer on. Pulse ox on. NIBP on. 13:17 Inserted peripheral IV: 18gauge IV in right antecubital area and blood collected. pml Patient tolerated the procedure well. 13:17 Maintain field IV. Dressing intact. Good blood return noted. Site clean & dry. Gauge & pml site: 18g left AC. 13:19 Patient visited by Chaim Quiñonez. jml1 13:22 Mireya Duarte MD is Attending Physician. fg 13:22 Patient visited by Mireya Duarte MD. fg 13:28 EKG done. (by ED staff). Reviewed by Mireya Duarte MD. bnb 13:30 Patient visited by Becky Rahman, RN. ttb 13:30 Triage Initiated pml 13:35 Patient visited by Juana Patterson,RN. pml 13:45 Patient visited by Lisette Cruz PCA. bnb 13:45 Patient visited by Juana Patterson,RN. pml 14:09 -Arterial Blood Gas Sent. lb 14:19 Patient visited by Juana Patterson,HALLE. pml 14:42 Patient visited by Chaim Quiñonez. jml1 15:30 Poison Control notified at 15:30 recommendations reviewed with Felicia. recommend 2meq/kg pml Sodium Bicarb bolus and repeat until QRS duration closer to 100ms. then initiate Sodium Bicarb drip at 1.5-2x maintenance dose. recommend monitor for hyperthermia and seizure activity. benzos PRN for seizures. monitor for respiratory depression. 15:32 EKG done. (by ED staff). Reviewed by Mireya Duarte MD. jml1 15:33 Patient visited by Chaim Quiñonez. jml1 15:35 [facility] Payment Agreement was scanned into [employer] and attached to record. jp5 15:47 Patient visited by Juana Patterson,HALLE. pml 15:55 Patient visited by Juana Patterson,HALLE. pml 16:04 EKG-ADULT Returned. EDMS 16:04 EKG-ADULT Returned. EDMS 16:15 Poison Control reviewed initial bolus and no change in QRS with poison control nurse - pml advised repeat bolus at 2 meq/kg and repeat EKG following bolus. 16:24 Patient visited by Juana Patterson,HALLE. pml 16:41 Patient visited by Juana Patterson,HALLE. pml 16:53 Bobby Pandey is Hospitalizing Provider. fg 16:53 Poison Control reviewed repeat EKGs - poison control nurse will review case with on pml call wheat farmer in regards to continuing sodium bicarb and will recontact the ED. 17:02 Patient visited by Juana Patterson,HALLE. pml 17:21 Patient visited by Juana Patterson,HALLE. pml 17:21 -Arterial Blood Gas Sent. js 17:44 Patient visited by Juana Patterson,HALLE. pml 18:00 Poison Control per wheat farmer injection molding operator continue to monitor EKG for increase from pml current QRS duration. if QRS duration increases repeat dose or Sodium Bicarb bolus. 18:09 EKG done. (by ED staff). Reviewed by Mireya Duarte MD. pml 19:03 Patient visited by Abdiel Sierra PCA. kb5 19:12 T-Sheet-- Draft Copy was scanned into [employer] and attached to record. klr 19:12 ARTERIAL BLOOD GAS Sent. rs5 20:00 No procedures done that require assistance. O2 via nasal cannula nasal trumpet in right jp6 nare-O2 at 6l/min. 06/03 10:51 ECG/EKG was scanned into [employer] and attached to record. gb 10:51 Trend VS was scanned into [email or web address] and attached to record. gb Administered Medications: 06/02 03:15 Drug: naloxone 2 mg [naloxone 1 mg/mL injection syringe (2 mL)] Route: IVP; Site: left pml antecubital; 03:25 Drug: Ondansetron 4 mg [ondansetron HCl 2 mg/mL intravenous solution (2 mL)] Route: pml IVP; Site: left antecubital; 13:40 Drug: NS 0.9% 1000 ml [sodium chloride 0.9 % injection solution] Route: IV; Rate: pml bolus; Site: left antecubital; 15:40 Follow up: IV Status: Completed infusion; IV Intake: 1000ml pml 15:38 Drug: Sodium Bicarbonate 1 amp {Note: admined to left AC IVP -NOT IO .} Route: pml Intraosseous; Site: right humerus; 15:39 Drug: Potassium Chloride in 100cc sterile water 10 mEq [potassium chloride 10 mEq/100 pml mL intravenous piggyback] {Co-Signature: dy (Ian Callaway RN).} Route: IV; Rate: 100 mL/hr; Infused Over: 1 hrs; Site: left antecubital; 16:35 Follow up: IV Status: Completed infusion pml 16:22 Drug: Sodium Bicarbonate 1 amp {Note: given IVP at left AV - not IO.} Route: pml Intraosseous; Site: left humerus; 16:27 Drug: NS 0.9% 1000 ml [sodium chloride 0.9 % injection solution] Route: IV; Rate: pml bolus; Site: left antecubital; 17:12 Drug: LORazepam 0.5 mg [lorazepam 2 mg/mL injection solution (0.25 mL)] Route: IVP; pml Site: right antecubital; Attachments: 10:51 Trend VS gb Point of Care Testing: Blood Glucose: 06/02 13:47 Blood Glucose: 114 mg/dL; pml Ranges: Intake: 15:40 IV: 1000.00ml; Total: 1000.00ml. pml 20:00 PO: 0.00ml; Total: 1000.00ml. jp6 Output: 14:19 Urine: 1000.00ml (Chavez); Total: 1000.00ml. pml 20:00 Urine: 500.00ml (Chavez); Total: 1500.00ml. jp6 RT: 14:09 ABG's drawn from right radial artery allens test done and positive pressure held for 5 lb minutes no bleeding noted pressure bandage applied specimen sent pt. tolerated well. O2 via non-rebreather \T\ 15L/min. 15:31 Patient Education: pt was placed on end tidal monitoring with 2L NC. etco2 36. lb 17:21 ABG's drawn from right radial artery allens test done and positive pressure held for 5 js minutes no bleeding noted pressure bandage applied specimen sent pt. tolerated well. 19:12 ABG's drawn from right radial artery pressure held for 5 minutes no bleeding noted rs5 pressure bandage applied specimen sent pt. tolerated well. Order Results: Lab Order: Acetaminophen Level; SPEC'M 06/02/16 13:18 Test: ACETAMINOPHEN LEVEL; Value: < 2.0; Range: 10.0-30.0; Abnormal: Below low normal; Units: UG/ML; Status: F Lab Order: CBC with Diff; SPEC'M 06/02/16 13:18 Test: WHITE BLOOD COUNT; Value: 21.4; Range: 4.0-10.0; Abnormal: Above high normal; Units: K/mm3; Status: F Test: RED BLOOD COUNT; Value: 5.22; Range: 4.30-6.10; Units: M/mm3; Status: F Test: HEMOGLOBIN; Value: 15.3; Range: 14.0-18.0; Units: g/dl; Status: F Test: HEMATOCRIT; Value: 45.1; Range: 42.0-52.0; Units: %; Status: F Test: MEAN CORPUSCULAR VOLUME; Value: 86.4; Range: 80.0-96.0; Units: fl; Status: F Test: MEAN CORPUSCULAR HEMOGLOBIN; Value: 29.2; Range: 27.0-33.0; Units: pg; Status: F Test: MEAN CORPUSCULAR HGB CONC; Value: 33.8; Range: 32.0-36.5; Units: g/dl; Status: F Test: RED CELL DISTRIBUTION WIDTH; Value: 13.6; Range: 11.5-14.5; Units: %; Status: F Test: PLATELET COUNT, AUTOMATED; Value: 290; Range: 150-450; Units: k/mm3; Status: F Test: NEUTROPHILS %; Value: 84.0; Range: 36.0-66.0; Abnormal: Above high normal; Units: %; Status: F Test: LYMPH %; Value: 8.3; Range: 24.0-44.0; Abnormal: Below low normal; Units: %; Status: F Test: MONO %; Value: 4.6; Range: 0.0-5.0; Units: %; Status: F Test: EOS %; Value: 0.4; Range: 0.0-3.0; Units: %; Status: F Test: BASO %; Value: 1.1; Range: 0.0-1.0; Abnormal: Above high normal; Units: %; Status: F Test: LARGE UNSTAINED CELL %; Value: 1.5; Range: 0.0-4.0; Units: %; Status: F Test: NEUTROPHILS #; Value: 17.9; Range: 1.8-7.7; Abnormal: Above high normal; Units: K/mm3; Status: F Test: LYMPH #; Value: 2.1; Range: 1.5-4.5; Units: K/mm3; Status: F Test: MONO #; Value: 1.0; Range: 0.0-0.8; Abnormal: Above high normal; Units: K/mm3; Status: F Test: EOS #; Value: 0.1; Range: 0.0-0.50; Units: K/mm3; Status: F Test: BASO #; Value: 0.2; Range: 0.0-0.2; Units: K/mm3; Status: F Test: LARGE UNSTAINED CELL #; Value: 0.3; Range: 0.0-0.4; Units: K/mm3; Status: F Lab Order: Cardiac Injury Profile; SPEC'M 06/02/16 13:18 Test: CPK CREATINE PHOSPHOKINASE; Value: 5429; Range: 39-308; Abnormal: Above high normal; Units: U/L; Status: F Test: CK-MB VALUE MASS; Value: 19.9; Range: 0.0-3.6; Abnormal: Above high normal; Units: NG/ML; Status: F Test: MB/CK RELATIVE INDEX; Value: 0.36; Range: < OR =4; Status: F Test Note: ; DIAGNOSIS CRITERIA MMB ng/ml Relative Index (RI) NON-AMI < or = 5 N/A PEKRINS ZONE > 5 < or = 4 AMI > 5 > 4 Lab Order: Drug Eval Toxicology ED Only; SPEC'M 06/02/16 13:18 Test: AMPHETAMINES LEVEL URINE; Value: NEGATIVE; Range: NEGATIVE; Status: F Test: BARBITURATES URINE; Value: NEGATIVE; Range: NEGATIVE; Status: F Test: BENZODIAZEPINES URINE; Value: NEGATIVE; Range: NEGATIVE; Status: F Test: CANNABINOIDS URINE; Value: NEGATIVE; Range: NEGATIVE; Status: F Test: COCAINE METABOLITE URINE; Value: NEGATIVE; Range: NEGATIVE; Status: F Test: METHADONE URINE; Value: NEGATIVE; Range: NEGATIVE; Status: F Test: OPIATES URINE; Value: NEGATIVE; Range: NEGATIVE; Status: F Test: TRICYCLIC ANTIDEPRESS URINE; Value: POSITIVE; Range: NEGATIVE; Abnormal: Above high normal; Status: F Test Note: ; ALL PRESUMPTIVE POSITIVE FINDINGS ARE UNCONFIRMED NORMAL VALUES THRESHOLD IN NG/ML AMPHETAMINES 1000 METHAMPHETAMINES 1000 BARBITURATES 300 BENZODIAZEPINES 300 CANNABINOIDS (THC) 50 COCAINE METABOLITE 300 METHADONE 300 OPIATES 300 PHENCYCLIDINE 25 TRICYCLIC ANTIDEPRESSANTS 1000 RESULTS ARE FOR MEDICAL PURPOSES ONLY. ALL URINE SPECIMENS WILL BE SAVED FOR 3 DAYS. IF CONFIRMATION OF A PRESUMPTIVE POSTIVE SCREEN RESULT IS DESIRED, CALL CHEMISTRY ([phone]) AND REQUEST URINE TO BE SENT TO REFERENCE LAB. FOR A LIST OF CLOSELY RELATED COMPOUNDS PLEASE CALL THE LAB. Lab Order: Liver Profile; SPEC'M 06/02/16 13:18 Test: AST/SGOT; Value: 121; Range: 15-37; Abnormal: Above high normal; Units: U/L; Status: F Test: ALT/SGPT; Value: 45; Range: 12-78; Units: U/L; Status: F Test: ALKALINE PHOSPHATASE; Value: 105; Range: 45-117; Units: U/L; Status: F Test: BILIRUBIN,TOTAL; Value: 0.2; Range: 0.2-1.0; Units: MG/DL; Status: F Test: BILIRUBIN,DIRECT; Value: < 0.1; Range: 0.0-0.2; Units: MG/DL; Status: F Test: TOTAL PROTEIN; Value: 7.0; Range: 6.4-8.2; Units: GM/DL; Status: F Test: ALBUMIN; Value: 3.8; Range: 3.2-5.2; Units: GM/DL; Status: F Test: ALBUMIN/GLOBULIN RATIO; Value: 1.19; Range: 1.00-1.93; Status: F Lab Order: MED Profile; SPEC'M 06/02/16 13:18 Test: GLUCOSE, FASTING; Value: 118; Range: 70-105; Abnormal: Above high normal; Units: MG/DL; Status: F Test: BLOOD UREA NITROGEN; Value: 20; Range: 7-18; Abnormal: Above high normal; Units: MG/DL; Status: F Test: CREATININE FOR GFR; Value: 1.37; Range: 0.70-1.30; Abnormal: Above high normal; Units: MG/DL; Status: F Test: GLOMERULAR FILTRATION RATE; Value: > 60.0; Range: >60; Status: F Test: SODIUM LEVEL; Value: 144; Range: 136-145; Units: MEQ/L; Status: F Test: POTASSIUM SERUM; Value: 3.8; Range: 3.5-5.1; Units: MEQ/L; Status: F Test: CHLORIDE LEVEL; Value: 109; Range: 98-107; Abnormal: Above high normal; Units: MEQ/L; Status: F Test: CARBON DIOXIDE LEVEL; Value: 26; Range: 21-32; Units: MEQ/L; Status: F Test: ANION GAP; Value: 9; Range: 8-16; Units: MEQ/L; Status: F Test: CALCIUM LEVEL; Value: 8.3; Range: 8.5-10.1; Abnormal: Below low normal; Units: MG/DL; Status: F Test Note: ; Units are mL/min/1.73 m2 Chronic Kidney Disease Staging per NKF: Stage I & II GFR >=60 Normal to Mildly Decreased Stage III GFR 30-59 Moderately Decreased Stage IV GFR 15-29 Severely Decreased Stage V GFR <15 Very Little GFR Left ESRD GFR <15 on ANESTHESIA DIRECTOR Lab Order: Salicylate Level; SPEC'06/02/16 13:18 Test: SALICYLATE LEVEL; Value: < 1.7; Range: 5.0-30.0; Abnormal: Below low normal; Units: MG/DL; Status: F Lab Order: Thyroid Stimulating Hormone; SPEC' 06/02/16 13:18 Test: THYROID STIMULATING HORMONE; Value: 1.460; Range: 0.358-3.740; Units: uIU/ML; Status: F Lab Order: Troponin; SPEC' 06/02/16 13:18 Test: TROPONIN I; Value: < 0.02; Range: < 0.10; Units: NG/ML; Status: F Test Note: ; Troponin I Reference Interval for [place] LOCI: 99th Percentile= 0.00-0.045 ng/ml Risk Stratification: <= 0.10 ng/ml Decreased Risk for Adverse Clinical Events. 0.10-1.50 ng/ml Increased Risk for Adverse Clinical Events. Evaluation of additional criterion and/or repeat testing in 2-6 hours is suggested to rule out myocardial damage. >= 1.50 ng/ml Indicative of Myocardial Injury. Lab Order: Urinalysis; SPEC'06/02/16 13:18 Test: APPEARANCE, URINE; Value: CLEAR; Range: CLEAR; Status: F Test: COLOR, URINE; Value: YELLOW; Range: YELLOW; Status: F Test: PH,URINE; Value: 5.0; Range: 5.0-9.0; Units: UNITS; Status: F Test: SPECIFIC GRAVITY URINE AUTO; Value: 1.019; Range: 1.002-1.035; Status: F Test: PROTEIN, URINE AUTO; Value: NEGATIVE; Range: NEGATIVE; Units: mg/dL; Status: F Test: GLUCOSE, URINE (UA) AUTO; Value: NEGATIVE; Range: NEGATIVE; Units: mg/dL; Status: F Test: KETONE, URINE AUTO; Value: TRACE; Range: NEGATIVE; Abnormal: Above high normal; Units: mg/dL; Status: F Test: UROBILINOGEN, URINE AUTO; Value: 0.2; Range: 0.0-2.0; Units: mg/dL; Status: F Test: BILIRUBIN, URINE AUTO; Value: NEGATIVE; Range: NEGATIVE; Status: F Test: NITRITE, URINE AUTO; Value: NEGATIVE; Range: NEGATIVE; Status: F Test: LEUKOCYTE ESTERASE, URINE AUTO; Value: NEGATIVE; Range: NEGATIVE; Status: F Test: BLOOD, URINE BLOOD; Value: 2+; Range: NEGATIVE; Abnormal: Above high normal; Status: F Test: WBC, URINE AUTO; Value: 0; Range: 0-3; Units: /HPF; Status: F Test: RBC, URINE AUTO; Value: 5; Range: 0-3; Abnormal: Above high normal; Units: /HPF; Status: F Test: BACTERIA, URINE AUTO; Value: NEGATIVE; Range: NEGATIVE; Status: F Test: SQUAMOUS EPITHELIAL CELL UR AU; Value: 0; Range: 0-6; Units: /HPF; Status: F Test: MUCUS, URINE; Value: SMALL; Range: NEGATIVE; Status: F Test: HYALINE CAST, URINE AUTO; Value: 0; Range: 0-1; Units: /LPF; Status: F Lab Order: Fingerstick Blood Sugar; SPEC'M 06/02/16 13:47 Test: BEDSIDE GLUCOSE; Value: 127; Range: 70-105; Abnormal: Above high normal; Units: MG/DL; Status: F Lab Order: -Arterial Blood Gas; SPEC'M 06/02/16 14:05 Test: ABG pH (ARTERIAL); Value: 7.376; Range: 7.350-7.450; Units: UNITS; Status: F Test: ABG PARTIAL PRESSURE CO2; Value: 43.0; Range: 35.0-45.0; Units: mmHg; Status: F Test: ABG PARTIAL PRESSURE O2; Value: 176.8; Range: 75.0-100.0; Abnormal: Above high normal; Units: mmHg; Status: F Test: ABG TOTAL CO2; Value: 26.0; Range: 22.0-29.0; Units: MEQ/L; Status: F Test: ABG HCO3; Value: 24.6; Range: 22.0-26.0; Units: MEQ/L; Status: F Test: ABG BASE EXCESS; Value: -0.7; Range: -2.0-2.0; Status: F Test: ABG STANDARD HCO3; Value: 24.0; Range: 22.0-26.0; Units: MEQ/L; Status: F Test: ABG O2 SATURATION; Value: 99.3; Range: 95.0-99.0; Abnormal: Above high normal; Units: %; Status: F Test: ABG DEVICE; Value: NASAL GEOFF; Status: F Lab Order: ETOH; SPEC'M 06/02/16 13:18 Test: ETHYL ALCOHOL (ETHANOL); Value: < 0.003; Range: 0.000-0.010; Units: %; Status: F Lab Order: BMP; SPEC'M 06/02/16 17:27 Test: GLUCOSE, FASTING; Value: 127; Range: 70-105; Abnormal: Above high normal; Units: MG/DL; Status: F Test: BLOOD UREA NITROGEN; Value: 17; Range: 7-18; Units: MG/DL; Status: F Test: CREATININE FOR GFR; Value: 1.27; Range: 0.70-1.30; Units: MG/DL; Status: F Test: GLOMERULAR FILTRATION RATE; Value: > 60.0; Range: >60; Status: F Test: SODIUM LEVEL; Value: 151; Range: 136-145; Abnormal: Above high normal; Units: MEQ/L; Status: F Test: POTASSIUM SERUM; Value: 3.3; Range: 3.5-5.1; Abnormal: Below low normal; Units: MEQ/L; Status: F Test: CHLORIDE LEVEL; Value: 108; Range: 98-107; Abnormal: Above high normal; Units: MEQ/L; Status: F Test: CARBON DIOXIDE LEVEL; Value: 36; Range: 21-32; Abnormal: Above high normal; Units: MEQ/L; Status: F Test: ANION GAP; Value: 7; Range: 8-16; Abnormal: Below low normal; Units: MEQ/L; Status: F Test: CALCIUM LEVEL; Value: 7.2; Range: 8.5-10.1; Abnormal: Below low normal; Units: MG/DL; Status: F Test Note: ; Units are mL/min/1.73 m2 Chronic Kidney Disease Staging per NKF: Stage I & II GFR >=60 Normal to Mildly Decreased Stage III GFR 30-59 Moderately Decreased Stage IV GFR 15-29 Severely Decreased Stage V GFR <15 Very Little GFR Left ESRD GFR <15 on ANESTHESIA DIRECTOR Lab Order: -Arterial Blood Gas; SPEC'M 06/02/16 17:18 Test: ABG pH (ARTERIAL); Value: 7.463; Range: 7.350-7.450; Abnormal: Above high normal; Units: UNITS; Status: F Test: ABG PARTIAL PRESSURE CO2; Value: 47.3; Range: 35.0-45.0; Abnormal: Above high normal; Units: mmHg; Status: F Test: ABG PARTIAL PRESSURE O2; Value: 92.0; Range: 75.0-100.0; Units: mmHg; Status: F Test: ABG TOTAL CO2; Value: 34.6; Range: 22.0-29.0; Abnormal: Above high normal; Units: MEQ/L; Status: F Test: ABG HCO3; Value: 33.1; Range: 22.0-26.0; Abnormal: Above high normal; Units: MEQ/L; Status: F Test: ABG BASE EXCESS; Value: 8.1; Range: -2.0-2.0; Abnormal: Above high normal; Status: F Test: ABG STANDARD HCO3; Value: 31.9; Range: 22.0-26.0; Abnormal: Above high normal; Units: MEQ/L; Status: F Test: ABG O2 SATURATION; Value: 97.3; Range: 95.0-99.0; Units: %; Status: F Test: ABG DEVICE; Value: NASAL GEOFF; Status: F Lab Order: LIVER PROFILE; SPEC'M 06/02/16 19:01 Test: AST/SGOT; Value: 138; Range: 15-37; Abnormal: Above high normal; Units: U/L; Status: F Test: ALT/SGPT; Value: 49; Range: 12-78; Units: U/L; Status: F Test: ALKALINE PHOSPHATASE; Value: 92; Range: 45-117; Units: U/L; Status: F Test: BILIRUBIN,TOTAL; Value: 0.2; Range: 0.2-1.0; Units: MG/DL; Status: F Test: BILIRUBIN,DIRECT; Value: < 0.1; Range: 0.0-0.2; Units: MG/DL; Status: F Test: TOTAL PROTEIN; Value: 5.8; Range: 6.4-8.2; Abnormal: Below low normal; Units: GM/DL; Status: F Test: ALBUMIN; Value: 3.2; Range: 3.2-5.2; Units: GM/DL; Status: F Test: ALBUMIN/GLOBULIN RATIO; Value: 1.23; Range: 1.00-1.93; Status: F Lab Order: CREATINE PHOSPHOKINASE; SPEC'M 06/02/16 19:01 Test: CPK CREATINE PHOSPHOKINASE; Value: 6022; Range: 39-308; Abnormal: Above high normal; Units: U/L; Status: F Lab Order: ARTERIAL BLOOD GAS; SPEC'M 06/02/16 19:01 Test: ABG pH (ARTERIAL); Value: 7.445; Range: 7.350-7.450; Units: UNITS; Status: F Test: ABG PARTIAL PRESSURE CO2; Value: 48.6; Range: 35.0-45.0; Abnormal: Above high normal; Units: mmHg; Status: F Test: ABG PARTIAL PRESSURE O2; Value: 137.5; Range: 75.0-100.0; Abnormal: Above high normal; Units: mmHg; Status: F Test: ABG TOTAL CO2; Value: 34.1; Range: 22.0-29.0; Abnormal: Above high normal; Units: MEQ/L; Status: F Test: ABG HCO3; Value: 32.6; Range: 22.0-26.0; Abnormal: Above high normal; Units: MEQ/L; Status: F Test: ABG BASE EXCESS; Value: 7.3; Range: -2.0-2.0; Abnormal: Above high normal; Status: F Test: ABG STANDARD HCO3; Value: 31.2; Range: 22.0-26.0; Abnormal: Above high normal; Units: MEQ/L; Status: F Test: ABG O2 SATURATION; Value: 98.7; Range: 95.0-99.0; Units: %; Status: F Radiology Order: EKG-ADULT Test: EKG-ADULT REASON FOR EXAMINATION: Cough; Stationary ECG Study; 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 fg 20:05 Discharge Assessment: patient administered narcotics - no. Admitted to ICU accompanied jp6 by nurse, accompanied by tech, via stretcher, with oxygen, on monitor, with chart. critical. CT Study completed. Admission hand-off: Report called to RN in ICU. Property :Personal belongings accompany Pt. 20:13 The following High Risk Discharge criteria are identified: None. jp6 20:18 Patient left the ED. sls1 Signatures: Dispatcher [employer] EDMS Manjula Kimbrough, Clinical Engineering Manager Unit deg Barnhardt, Betty, Reg Reg gb Zoya,Marcia lb Mateo,Abdiel Upton, NURSE COMPANION NURSE COMPANION kb5 Yola Dang, RN RN sls1 Chaim Quiñonez jmPolo Rodriguez,RT RT rs5 Juana Patterson,RN RN pml Becky Rahman, RN RN ttb Sharri Hayward jp5 Mireya Duarte MD MD fg Palmer, JessicaRN RN jp6 Cathryn Jiang Brittney, NURSE COMPANION NURSE COMPANION bnb Ian emery Corrections: (The following items were deleted from the chart) 20:11 19:02 Reassessment: Patient appears in no apparent distress at this time. Patient jp6 states symptoms have improved. jp6 Chart Complete MTDD
--- NOTE | 2016-06-04 21:19 | EDDOCDS ---
Physician Documentation [facility] Name: Allen Jimenez Age: 35 yrs Sex: Male : 1980 Arrival Date: 06/02/2016 Time: 13:14 Bed 3 Private MD: Disposition: 06/02/16 16:56 Hospitalization ordered by Bobby Pandey for Inpatient Admission. Preliminary diagnosis are Other psychoactive substance dependence with intoxication, Altered mental status, unspecified. - Bed requested for M ICU. - Status is Inpatient Admission. sls1 - Condition is Stable. - Problem is new. - Symptoms have worsened. Historical: - Allergies: Tramadol HClseizure; Mobic (Anaphylaxis); Ambien; Ambien; Mobic (Anaphylaxis); Tramadol HClseizure; - Home Meds: 1. fluoxetine 20 mg Oral cap 3 caps once daily (Last dose: Unknown) 2. quetiapine 25 mg oral tab 1 tab nightly (Last dose: Unknown) 3. losartan 50 mg oral tab 1 tab once daily (Last dose: Unknown) 4. pregabalin 200 mg Oral cap 1 cap 2 times per day (Last dose: Unknown) 5. doxepin 100 mg Oral cap bedtime quantity 30 -- filled 06/09/2015 bottle empty (Last dose: Unknown) 6. atorvastatin 20 mg oral tab 1 tab once daily (Last dose: Unknown) - PMHx: Asthma; Chronic Back pain; Depression; Asthma; Chronic Back pain; Depression; - PSHx: Colonoscopy; Colonoscopy; - Social history: Smoking status: unknown if patient ever smoked tobacco. No barriers to communication noted, The patient speaks fluent Moroccan, Speaks appropriately for age. - Family history: Not pertinent. - : The pt / caregiver states he / she is not on anticoagulants. Home medication list is obtained from [employer] ([employer]) import data, pill bottles, Unable to Verify Home Med List with the patient / caregiver. - Exposure Risk Screening:: Unable to Assess. Vital Signs: 06/02 13:16 BP 169 / 102 (auto/); pml 13:17 BP 169 / 102; Pulse 123; Resp 16; Temp 100.9(TE); Pulse Ox 97% on 10% Non-rebreather jml1 mask; Weight 103.24 kg / 227.61 lbs; 13:17 Pulse 122 MON; Pulse Ox 97% ; pml 13:25 Pulse 123 MON; Pulse Ox 98% ; pml 13:25 BP 174 / 95 (auto/); pml 13:35 BP 154 / 81 (auto/); pml 13:37 Pulse 122 MON; Pulse Ox 99% ; pml 13:45 Pulse 128 MON; Pulse Ox 99% ; pml 13:45 BP 156 / 82 (auto/); pml 13:55 Pulse 127 MON; Pulse Ox 99% ; pml 13:55 BP 152 / 84 (auto/); pml 14:05 Pulse 126 MON; Pulse Ox 99% ; pml 14:05 BP 151 / 81 (auto/); pml 14:15 Pulse 123 MON; Pulse Ox 99% ; pml 14:15 BP 155 / 79 (auto/); pml 14:25 Pulse 120 MON; Pulse Ox 99% ; pml 14:25 BP 156 / 78 (auto/); pml 14:35 Pulse 119 MON; Pulse Ox 99% ; pml 14:35 BP 150 / 77 (auto/); pml 14:42 Temp 99.0(TE); jml1 14:45 Pulse 119 MON; Pulse Ox 98% ; pml 14:45 BP 155 / 72 (auto/); pml 14:55 Pulse 116 MON; Pulse Ox 99% ; pml 14:55 BP 146 / 72 (auto/); pml 15:05 Pulse 119 MON; Pulse Ox 99% ; pml 15:05 BP 149 / 72 (auto/); pml 15:15 Pulse 121 MON; Pulse Ox 99% ; pml 15:15 BP 154 / 81 (auto/); pml 15:25 Pulse 120 MON; Pulse Ox 100% ; pml 15:25 BP 158 / 76 (auto/); pml 15:35 Pulse 118 MON; Pulse Ox 96% ; pml 15:35 BP 161 / 88 (auto/); pml 15:43 Temp 98.3(R); pml 15:43 Pulse Ox 96% on 2 lpm NC; pml 15:45 Pulse 121 MON; Pulse Ox 96% ; pml 15:45 BP 141 / 79 (auto/); pml 15:55 Pulse 122 MON; Pulse Ox 96% ; pml 15:55 BP 137 / 67 (auto/); pml 16:05 Pulse 121 MON; Pulse Ox 95% ; pml 16:05 BP 131 / 65 (auto/); pml 16:15 Pulse 118 MON; Pulse Ox 94% ; pml 16:15 BP 132 / 73 (auto/); pml 16:25 Pulse 110 MON; Pulse Ox 96% ; pml 16:25 BP 158 / 84 (auto/); pml 16:35 Pulse 110 MON; Pulse Ox 96% ; pml 16:35 BP 150 / 80 (auto/); pml 16:45 Pulse 109 MON; Pulse Ox 94% ; pml 16:45 BP 154 / 80 (auto/); pml 16:55 Pulse 107 MON; Pulse Ox 97% ; pml 16:55 BP 160 / 81 (auto/); pml 17:05 Pulse 112 MON; Pulse Ox 98% ; pml 17:05 BP 156 / 78 (auto/); pml 17:15 Pulse 105 MON; Pulse Ox 98% ; pml 17:15 BP 159 / 70 (auto/); pml 17:45 BP 128 / 70 (auto/); jp6 17:45 Pulse 107 MON; Pulse Ox 97% ; jp6 17:55 BP 128 / 75 (auto/); jp6 17:55 Pulse 107 MON; Pulse Ox 97% ; jp6 18:05 BP 130 / 77 (auto/); jp6 18:05 Pulse 107 MON; Pulse Ox 98% ; jp6 18:15 BP 157 / 70 (auto/); jp6 18:15 Pulse 106 MON; Pulse Ox 98% ; jp6 18:25 BP 156 / 70 (auto/); jp6 18:25 Pulse 104 MON; Pulse Ox 98% ; jp6 18:35 BP 158 / 70 (auto/); jp6 18:35 Pulse 102 MON; Pulse Ox 98% ; jp6 18:45 BP 153 / 71 (auto/); jp6 18:45 Pulse 102 MON; Pulse Ox 98% ; jp6 18:55 BP 144 / 66 (auto/); jp6 18:55 Pulse 101 MON; Pulse Ox 99% ; jp6 19:05 BP 143 / 63 (auto/); jp6 19:05 Pulse 101 MON; Pulse Ox 99% ; jp6 19:15 BP 152 / 65 (auto/); jp6 19:15 Pulse 102 MON; Pulse Ox 99% ; jp6 19:25 BP 152 / 63 (auto/); jp6 19:25 Pulse 101 MON; Pulse Ox 99% ; jp6 19:35 BP 155 / 63 (auto/); jp6 19:35 Pulse 103 MON; Pulse Ox 99% ; jp6 19:45 BP 165 / 81 (auto/); jp6 19:45 Pulse 104 MON; Pulse Ox 99% ; jp6 19:55 BP 164 / 75 (auto/); jp6 19:55 Pulse 105 MON; Pulse Ox 99% ; jp6 20:00 Pulse 107 MON; Pulse Ox 99% ; jp6 20:00 Resp 10; Temp 98.3(R); jp6 MDM: 13:24 Data Mining Analyst/Pulse Ox/q 15 min VS ordered. fg 13:24 Accucheck ordered. fg 13:24 Garay ordered. fg 13:24 IV Saline Lock ordered. fg 13:24 Oxygen at 4L/Min NC or Home dosage ordered. fg 13:24 Rhythm Strip to chart ordered. fg 13:24 Ondansetron 4 mg IVP once ordered. fg 13:25 Urine Culture Ordered. EDMS 13:25 Acetaminophen Level Ordered. EDMS 13:25 CBC with Diff Ordered. EDMS 13:25 Cardiac Injury Profile Ordered. EDMS 13:25 Drug Eval Toxicology ED Only Ordered. EDMS 13:25 Liver Profile Ordered. EDMS 13:25 MED Profile Ordered. EDMS 13:25 Salicylate Level Ordered. EDMS 13:25 Thyroid Stimulating Hormone Ordered. EDMS 13:25 Troponin Ordered. EDMS 13:25 Urinalysis Ordered. EDMS 13:25 CT Head Without Contrast Ordered. EDMS 13:25 Chest, 1 View Ordered. EDMS 13:27 ECG WITH READING ER PHYS+CARDIAG ordered. EDMS 13:29 naloxone 2 mg IVP once ordered. pml 13:49 Hand, Complete Ordered. EDMS 13:55 Fingerstick Blood Sugar Ordered. EDMS 14:00 Call Respiratory ordered. fg 14:00 -Arterial Blood Gas Ordered. EDMS 14:09 Call Respiratory complete. lb 15:12 ETOH Ordered. EDMS 15:21 Sodium Bicarbonate 1 amp Intraosseous once; Please complete med IV. bolus of 2meq/kg. fg 200meq IV ordered. 15:21 Potassium Chloride in 100cc sterile water 10 mEq IV at 100 mL/hr once over 1 hrs fg ordered. 15:35 [facility] Payment Agreement was scanned into [employer] and attached to record. jp5 15:35 Financial registration complete. jp5 15:39 NS 0.9% 1000 ml IV at bolus once ordered. pml 15:52 ECG WITH READING ER PHYS+CARDIAG ordered. EDMS 15:53 ECG WITH READING ER PHYS ordered. EDMS 16:17 Sodium Bicarbonate 1 amp Intraosseous once; Please give 2meq/hour, for 200meq IV fg ordered. 16:23 NS 0.9% 1000 ml IV at bolus once ordered. fg 16:29 ECG WITH READING ER PHYS ordered. EDMS 16:50 BMP Ordered. EDMS 17:06 LORazepam 0.5 mg IVP once ordered. fg 17:15 -Arterial Blood Gas Ordered. EDMS 18:05 ECG WITH READING ER PHYS+CARDIAG ordered. EDMS 18:38 LIVER PROFILE Ordered. EDMS 18:38 COMPLETE COMPHRENSIVE METABOLI Ordered. EDMS 18:38 CREATINE PHOSPHOKINASE Ordered. EDMS 18:38 CREATINE PHOSPHOKINASE Ordered. EDMS 18:39 ELECTROCARDIOGRAM ADULT ordered. EDMS 18:40 ELECTROCARDIOGRAM ADULT ordered. EDMS 18:40 ELECTROCARDIOGRAM ADULT ordered. EDMS 18:40 ELECTROCARDIOGRAM ADULT ordered. EDMS 18:40 ELECTROCARDIOGRAM ADULT ordered. EDMS 18:40 ELECTROCARDIOGRAM ADULT ordered. EDMS 18:40 ELECTROCARDIOGRAM ADULT ordered. EDMS 18:40 ELECTROCARDIOGRAM ADULT ordered. EDMS 18:40 ELECTROCARDIOGRAM ADULT ordered. EDMS 18:40 ELECTROCARDIOGRAM ADULT ordered. EDMS 18:47 COMPLETE BLOOD COUNT Ordered. EDMS 18:47 MAGNESIUM LEVEL Ordered. EDMS 18:47 ARTERIAL BLOOD GAS Ordered. EDMS 18:50 Admission / Observation Status ordered. EDMS 18:50 NPO DIET ordered. EDMS 19:12 T-Sheet-- Draft Copy was scanned into [employer] and attached to record. klr 19:32 COMPLETE COMPHRENSIVE METABOLI Ordered. EDMS 19:32 COMPLETE COMPHRENSIVE METABOLI Ordered. EDMS 19:32 COMPLETE COMPHRENSIVE METABOLI Ordered. EDMS 19:32 CREATINE PHOSPHOKINASE Ordered. EDMS 19:32 CREATINE PHOSPHOKINASE Ordered. EDMS 19:32 CREATINE PHOSPHOKINASE Ordered. EDMS 19:32 MAGNESIUM LEVEL Ordered. EDMS 19:32 MAGNESIUM LEVEL Ordered. EDMS 19:32 MAGNESIUM LEVEL Ordered. EDMS 19:58 MRSA SCREEN Ordered. EDMS 20:15 ARTERIAL BLOOD GAS Ordered. EDMS 20:33 MAGNESIUM LEVEL Ordered. EDMS 06/03 10:51 ECG/EKG was scanned into [employer] and attached to record. gb 10:51 Trend VS was scanned into [employer] and attached to record. gb Point of Care Testing: Blood Glucose: 01/29 13:47 Blood Glucose: 114 mg/dL; pml Ranges: Administered Medications: 03:15 Drug: naloxone 2 mg [naloxone 1 mg/mL injection syringe (2 mL)] Route: IVP; Site: left pml antecubital; 03:25 Drug: Ondansetron 4 mg [ondansetron HCl 2 mg/mL intravenous solution (2 mL)] Route: pml IVP; Site: left antecubital; 13:40 Drug: NS 0.9% 1000 ml [sodium chloride 0.9 % injection solution] Route: IV; Rate: pml bolus; Site: left antecubital; 15:40 Follow up: IV Status: Completed infusion; IV Intake: 1000ml pml 15:38 Drug: Sodium Bicarbonate 1 amp {Note: admined to left AC IVP -NOT IO .} Route: pml Intraosseous; Site: right humerus; 15:39 Drug: Potassium Chloride in 100cc sterile water 10 mEq [potassium chloride 10 mEq/100 pml mL intravenous piggyback] {Co-Signature: dy (Allen Callaway RN).} Route: IV; Rate: 100 mL/hr; Infused Over: 1 hrs; Site: left antecubital; 16:35 Follow up: IV Status: Completed infusion pml 16:22 Drug: Sodium Bicarbonate 1 amp {Note: given IVP at left AV - not IO.} Route: pml Intraosseous; Site: left humerus; 16:27 Drug: NS 0.9% 1000 ml [sodium chloride 0.9 % injection solution] Route: IV; Rate: pml bolus; Site: left antecubital; 17:12 Drug: LORazepam 0.5 mg [lorazepam 2 mg/mL injection solution (0.25 mL)] Route: IVP; pml Site: right antecubital; Signatures: Dispatcher [employer] EDMS Mariajose Martinez RN RN daq Barnhardt, Gloria, Reg Reg Marcia Huddleston Shannon RN RN sls1 Juana Patterson RN RN pml Conner, Teresa, RN RN ttb Price, Jennalee jp5 Mireya Duarte MD MD fg Redder, Kathie klr David Youngs RN dy The chart was reviewed and I authenticate all verbal orders and agree with the evaluation and treatment provided.Attachments: 15:35 [facility] Payment Agreement jp5 19:12 T-Sheet-- Draft Copy klr 06/03 10:51 ECG/EKG gb Chart Complete MTDD
[2016-06-04 22:00] VITALS: BP 128/74
[2016-06-05] MEDS: KCL 20MEQ IN D5/0.45NS 1000ML 1,000 ML IV SCH ×3 (00:06→19:20)
[2016-06-05] MEDS: ALBUTEROL 90 MCG/ACT 8GM HFA INHALER INH PRN (05:27)
[2016-06-05 06:00] VITALS: BP 133/83
[2016-06-05 06:30] LABS: MEAN CORPUSCULAR HEMOGLOBIN 29.4 pg (27.0-33.0); MEAN CORPUSCULAR HGB CONC 32.9 g/dl (32.0-36.5); MEAN CORPUSCULAR VOLUME 89.4 fl (80.0-96.0); RED CELL DISTRIBUTION WIDTH 12.4 % (11.5-14.5); WHITE BLOOD COUNT 9.1 K/mm3 (4.0-10.0)
[2016-06-05 07:09] LABS: ALBUMIN 2.7 GM/DL (3.2-5.2); ALBUMIN/GLOBULIN RATIO 0.87 (1.00-1.93); ALKALINE PHOSPHATASE 82 U/L (45-117); ALT/SGPT 54 U/L (12-78); ANION GAP 7 MEQ/L (8-16); AST/SGOT 94 U/L (15-37); BILIRUBIN,TOTAL 0.3 MG/DL (0.2-1.0); BLOOD UREA NITROGEN 9 MG/DL (7-18); CALCIUM LEVEL 8.2 MG/DL (8.5-10.1); CARBON DIOXIDE LEVEL 27 MEQ/L (21-32); CHLORIDE LEVEL 109 MEQ/L (98-107); CREATININE FOR GFR 0.94 MG/DL (0.70-1.30); GLOMERULAR FILTRATION RATE > 60.0 (>60); GLUCOSE, FASTING 95 MG/DL (70-105); MAGNESIUM LEVEL 1.9 MG/DL (1.8-2.4); POTASSIUM SERUM 3.8 MEQ/L (3.5-5.1); SODIUM LEVEL 143 MEQ/L (136-145); TOTAL PROTEIN 5.8 GM/DL (6.4-8.2)
[2016-06-05] MEDS: ENOXAPARIN 40 MG/0.4 ML SYRINGE (J1650) SC SCH (09:33)
--- NOTE | 2016-06-05 13:14 | REP ---
LEFT UPPER EXTREMITY DUPLEX DOPPLER VENOUS ULTRASOUND: Real-time compression and duplex Doppler interrogation of the left upper extremity deep vein system is performed. There is thrombus filling the left axillary vein and left brachial veins with thrombus also involving the entire basilic vein in the left upper arm. The cephalic vein appears patent. No thrombus is seen in the left internal jugular vein or visualized subclavian vein. IMPRESSION: There is DVT throughout the left axillary and brachial veins as well as in the left basilic vein. Signed by Pierce Sewell MD 06/05/2016 07:40 P
[2016-06-05 14:00] VITALS: BP 121/71
[2016-06-05] MEDS ORDERED: RIVAROXABAN 15 MG TAB (XARELTO) PO ONE (14:15)
--- NOTE | 2016-06-05 15:05 | REP ---
MRI CERVICAL SPINE WITHOUT CONTRAST: 06/05/2016 COMPARISON: 12/02/2013 CLINICAL HISTORY: Cervical radiculopathy, right hand paresthesia, 4th and 5th fingers. TECHNIQUE: Sagittal T1, T2, and STIR images with axial T1- and T2-sequences provided. FINDINGS: There are discogenic endplate changes at the C5-6 level with disc space narrowing, progressive since the 2014 study. There is loss of disc water signal from C2-3 through C6-7. The disc heights are mildly diminished at C2-3 through C4-5 but unchanged. There are no compression deformities or destructive lesions of the bone. Slight loss of the normal cervical lordosis. Craniocervical junction was intact with ample subarachnoid space and no cerebellar tonsillar ectopia. At C2-3, there was no significant disc bulge or herniation and no spinal or foraminal stenosis. At C3-4, posterior osteophytic ridging and a left paracentral left lateral disc bulge thinning ventral subarachnoid space. This is not compressing the cord. Uncinate and facet hypertrophy noted with the foramina unchanged from previous studies, slightly narrowed. At C4-5, minimal disc bulge without disc herniation, spinal or foraminal stenosis. At C5-6, there is a broad-based disc bulge and left paracentral disc protrusion similar to previous study. Subarachnoid space is obliterated. There is flattening of the ventral cord surface. The AP canal diameter is about 7.6 mm, previously 7.2 mm. The right foramen is minimally narrowed, the left is moderately stenotic at this level. At C6-7, minimal broad-based disc bulge without any significant spinal or foraminal stenosis. A C7-T1, there is no disc bulge or herniation and no spinal or foraminal stenosis. IMPRESSION: 1. Cervical spondylosis at C5-6 with central canal stenosis due to posterior osteophytic ridging and disc bulge with left paracentral disc protrusion. This causes central canal stenosis, and there is foraminal encroachment, left greater than right due to combined factors. 2. Lesser degenerative disc changes at C3-4 as a progressive change from 2014 with slightly narrowed foramina, left more than right, stable. 3. Other levels with minor degenerative disc change or none, but no intrinsic cord signal abnormality, syrinx, atrophy, or mass. Signed by Pepe Mohan MD 06/05/2016 04:47 P
[2016-06-05] MEDS ORDERED: XARE15TA PO ×2 (16:00→17:04)
[2016-06-05] MEDS ORDERED: TYLE325T5 PO (17:03)
[2016-06-06] MEDS ORDERED: RIVAROXABAN 15 MG TAB (XARELTO) PO SCH (08:00)
--- NOTE | 2016-06-06 21:45 | DSES ---
DATE OF ADMISSION: 06/02/2016 DATE OF DISCHARGE: 06/05/2016 CONSULTATIONS: None. PROCEDURES: None. COMPLICATIONS: None. DIAGNOSTIC IMAGING: EKG on admission showed sinus tachycardia with intraventricular conduction delay, QRS 133, QTC 469. Repeat EKG later showed QRS 115, QTC 443. Toxicology screen positive for TCA. Alcohol level negative. A CT head negative for acute changes. X-ray of right hand showed no fracture or dislocation. Cervical spine MRI showed cervical spondylosis at C5-C6 with central canal stenosis due to posterior osteophytic ridging and disc bulge with left paracentral disc protrusion, foraminal encroachment, left greater than right, left-side degenerative changes at C3-C4, minor degenerative changes. Vascular ultrasound showed deep vein thrombosis (DVT) throughout left axillary and brachial veins as well as basilic vein. DISCHARGE DIAGNOSES: 1. Toxic encephalopathy in the setting of drug overdose. 2. Rhabdomyolysis. 3. Left upper extremity deep vein thrombosis. 4. Transaminitis. 5. Major depressive disorder. 6. Leukocytosis. 7. Central canal stenosis. 8. Hypernatremia. 9. Leukocytosis. SECONDARY ADMITTING DIAGNOSES: 1. Chronic back pain. 2. History of asthma. 3. History of hyperlipidemia. 4. History of hypertension. 5. Prior suicidal attempt in February 2015. BRIEF HOSPITAL COURSE: Mr. Jimenez is a 35-year-old male with past medical history of intentional overdose, major depressive disorder, who was brought in by friends and family due to episodes of unresponsiveness. Prior to admission the patient reportedly had gone to a bar and had some alcoholic beverage. He later admitted taking 10 pills of doxepin that were left over from his previous suicidal attempt. When the patient was brought into the emergency room (ER), he was unresponsive but had intact gag reflex and did not require mechanical intervention. His QTC was prolonged. He had a wide QRS. Poison control was contacted, who recommended bicarbonate be given, which he received 2 amps. He had hourly EKG checks along with chemistry. His CK on admission was greater than 6000 which improved by holding his home medications, including his Lipitor, and received IV hydration. His transaminitis was secondary to medication. Though he did have leukocytosis on admission, this was secondary to stress reaction, as his numbers resolved back to normal without any antibiotic treatment. He also was found to have left lower extremity deep vein thrombosis (DVT) and was started on Xarelto inpatient. He also reported numbness to his first three digits of his right hand and had MRI findings with results as mentioned above. PHYSICAL EXAMINATION AT TIME OF DISCHARGE: VITAL SIGNS: Blood pressure 121/71, heart rate 86, respiration rate 18, temperature 98, pulse oximetry 94% on room air. Intake and output last 24 hours: 2820 and 1225. GENERAL: Patient was lying bed comfortable. No acute distress. Alert, awake, oriented times three. Pleasant, cooperative. Friend at bedside. HEENT: Normocephalic, atraumatic. Moist oral mucosa. Extraocular movement intact. Pupils equal and reactive to light. NECK: Supple. Trachea midline. CHEST: Symmetric chest rise. No accessory muscle use. Breath sounds were Clear to auscultation bilaterally. HEART: Regular rate and rhythm. S1, S2 present ABDOMEN: Soft, nontender, nondistended. Bowel sounds present. No guarding or rebound. EXTREMITIES: No pedal edema. Pedal pulses present bilaterally. NEUROLOGIC: Sensory is diminished on the first three digits of his hand. Deep tendon reflexes (DTRs) 2/4 in all extremities. Pin prick sensation is diminished. Slasher Hand strength is diminished on his right hand. Had MRI findings with results as mentioned. LABORATORY DATA: WBC 9.1, hemoglobin 12.4, hematocrit 37.6, platelets 219. Sodium 143, potassium 3.8, chloride 109, carbon dioxide 27, BUN 9, creatinine 0.94, glucose 92, calcium 8.2, magnesium 1.9. Total bilirubin 0.3, AST 94, ALT 54, alkaline phosphatase 82. CK 2483. DISPOSITION: To inpatient mental health unit ([facility]). CONDITION: Stable. ACTIVITY: As tolerated. DIET: Low fat, low cholesterol with plastic wilson. DISCHARGE MEDICATIONS: New medications: - Xarelto 15 mg by mouth twice a day for 21 days, then change to 20 mg daily thereafter - Proventil two puffs inhaled every 4 hours as needed - losartan 50 mg by mouth daily Stop the following home medications: - Tylenol 650 mg every 4 hours as needed - Lipitor 20 mg at bedtime - butalbital/Tylenol one tablet by mouth as needed for migraines - fluoxetine 60 mg by mouth daily - Lyrica 200 mg by mouth twice a day - Seroquel 25 mg at bedtime INSTRUCTIONS: The patient will be discharged to [facility] for further treatment of suicidal attempt. TIME SPENT: 35 minutes. My preceptor for this patient encounter was Dr. Allen Lentz. The preceptor was physically present in the building during the encounter and was fully available as needed. All aspects of the patient interview, examination, medical decision making process, and medical care plan development were reviewed and approved by the preceptor. The preceptor is aware and concurs with the plan as stated in the body of this note and will attest to such by his/her co-signature. VERNELL
[2016-06-26] MEDS ORDERED: RIVAROXABAN 20 MG TAB (XARELTO) PO SCH (18:00)
== END 2016-06-05 19:55 | DRG 812 ==
LOC: M ED 13:14 → M ED INP 18:46 → M ICU 20:42 → M PCU 06-04 00:48 → M MSPAV 06-04 14:36
PROVIDERS: ADMIT Internal Medicine; ATTEND Internal Medicine
DX: T43.012A Poisoning by tricyclic antidepressants, intentional self-harm, initial encounter (principal); G92 Toxic encephalopathy; E87.0 Hyperosmolality and hypernatremia; M62.82 Rhabdomyolysis; I82.622 Acute embolism and thrombosis of deep veins of left upper extremity; M48.02 Spinal stenosis, cervical region; Y92.019 Unspecified place in single-family (private) house as the place of occurrence of the external cause; F32.9 Major depressive disorder, single episode, unspecified; J45.909 Unspecified asthma, uncomplicated; G40.909 Epilepsy, unspecified, not intractable, without status epilepticus; F19.10 Other psychoactive substance abuse, uncomplicated; E87.6 Hypokalemia; D64.9 Anemia, unspecified; F17.220 Nicotine dependence, chewing tobacco, uncomplicated; R74.0 Nonspecific elevation of levels of transaminase and lactic acid dehydrogenase [LDH]; I10 Essential (primary) hypertension; E78.5 Hyperlipidemia, unspecified; Z79.899 Other long term (current) drug therapy

== ENCOUNTER 2016-06-05 20:00 | Inpatient (IN) | payer OTHER ==
[~2016-06-05] VITALS: Ht 182.9 cm; Wt 103.1 kg
[~2016-06-05 20:00] MED LIST changes: +BUTA-198 PO; +FLUO20CA8 PO; +SERO1TAB3 PO; +TYLE325T5 PO; +XARE15TA PO
[2016-06-05 20:12] VITALS: BP 146/81
[2016-06-05] MEDS ORDERED: MAALOX 30 ML SUSP *UDC PO PRN (21:00)
[2016-06-05] MEDS ORDERED: QUEtiapine FUMARATE 50 MG TAB PO SCH (21:00)
[2016-06-05] MEDS ORDERED: MOM 30ML SUSPENSION UDC PO PRN (21:00)
[2016-06-06 06:41] VITALS: BP 159/94
[2016-06-06] MEDS ORDERED: ALBUTEROL SULFATE 2.5 MG/0.5 ML INH NEB SOLN INH PRN (11:00)
--- NOTE | 2016-06-06 11:10 | HPEPDOC ---
Medical History and Physical Date of Admission Jun 05, 2016 at 20:00 History and Physical PCP: Dr Pritchett ATTENDING: Dr. Allen Lentz HPI: 35yoM admitted to [facility] for unspecified depressive disorder, being medically examined today. Patient was admitted to [facility] 06/02/16-06/05/16 for medical stabilization following medication overdose. The patient was started on Xarelto 15 mg by mouth twice a day 06/05/16 for left upper extremity DVT. Denies any fevers, chills, weakness, fatigue, ARELLANO, CP, SOB, cough, palpitations, abdominal pain, N/V/D or changes in bowel or bladder habits. PMHx: Chronic back pain-Dr Duarte [facility] pain clinic Depression/anxiety- [facility]. Hypertension Fibromyalgia Migraine headache- [facility] Hyperlipidemia History of seizure related to tramadol use. None since. History of narcotic use. 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 States screened for HIV/hepatitis in the past. FAMHX: Mother: , COPD Father: Unknown Siblings: 2 half brothers, 3/2 sisters Alive, well Children: Alive, autism Unexpected deaths due to medical reasons: None. ROS: As noted in HPI, otherwise 11pt ROS of systems reviewed and remarkable for numbness and tingling in his right hand with reduced geomagnetist strength. PE: GEN: 35yoM, appears stated age. Well-nourished, well developed. No acute distress. Alert and oriented x 3. Pleasant, interactive. HEENT: Normocephalic, atraumatic. Pupils are equal, round, and reactive to light. Extraocular movements are intact. No nystagmus appreciated. Sclera are nonicteric. Conjunctiva without injection. Nose midline. Nasal turbinates without bogginess. EACs both patent BL. TMs both visualized and valderrama with good cone of light, no bulging or erythema. No facial asymmetry. Moist mucous membranes. Dentition fair. Pharynx pink and moist, no cobblestoning. Neck supple , trachea midline. No lymphadenopathy or thyromegaly appreciated. CHEST: Regular rate and rhythm, +S1, +S2 LUNGS: Clear to auscultation bilaterally. No wheezes, rales, or rhonchi. Breathing appears symmetric and easy. Patient is speaking in full sentences. No accessory muscle use. ABD: Round, soft, non-tender, non-distended. +Bowel sounds throughout. No rebound or guarding. No costovertebral angle tenderness. EXT: Pulses 2+ bilaterally dorsalis pedis and radial. No lower extremity edema appreciated. SKIN: [place], dry, warm. Capillary refill <2sec. No rashes. Mild tenderness and warmth noted left inner upper arm. NEURO: Alert and oriented x 3. Cranial nerves III-XII are intact. No focal deficits appreciated. EK06/03/16 SINUS RHYTHM CANNOT R/O INFERIOR WALL MD, PROBABLY OLD NONSPECIFIC T-WAVE ABNORMALITY SIMILAR TO 6:[address] C spine 1. Cervical spondylosis at C5-6 with central canal stenosis due to posterior osteophytic ridging and disc bulge with left paracentral disc protrusion. This causes central canal stenosis, and there is foraminal encroachment, left greater than right due to combined factors. 2. Lesser degenerative disc changes at C3-4 as a progressive change from 2014 with slightly narrowed foramina, left more than right, stable. 3. Other levels with minor degenerative disc change or none, but no intrinsic cord signal abnormality, syrinx, atrophy, or mass. A&P: 35yoM admitted to [facility] for unspecified depressive disorder 1. Psych. Plan per Psychiatry. EKG on file. 2. Nicotine dependence. Patch available. 3. Borderline EKG. No cardiac signs or symptoms appreciated on exam, follow with PCP. 4. Follow up with PCP on discharge. 5. Substance use. Per psychiatry. 6. Left upper extremity DVT. Continue with Xarelto 15 mg by mouth twice a day for 21 days then 20 mg by mouth daily. 7. Hypertension. Continue with losartan 50 mg by mouth daily with hold parameters. 8. Rhabdomyolysis. Recheck CK this morning. 9. History of asthma. Continue albuterol nebulizer as needed. Continue albuterol 2 puffs every 4 hours as needed. 10. Chronic back pain. Patient states he follows with Dr. Ramachandran as outpatient with pain clinic in [facility]. Patient states he receives injections approximately monthly. 11. Transaminitis. LFTs are trending downward. Recheck CMP today. Continue to hold statin for now. 12. Cervical spondylosis/right upper extremity paresthesia. Will discuss MRI of cervical spine results with Dr. Arellano from orthopedics. Staff member present throughout exam, Allen THOMPSON. Vital Signs Vital Signs Label Value Date Time Patient Temperature 95.9 degrees F 06/06/16 0641 Temperature Source Tympanic 06/06/16 0641 Pulse 81 06/06/16 0641 Respiratory Rate 16 bpm 06/06/16 0641 Blood Pressure Assessment 159/94 (115) 06/06/16 0641 Laboratory Data Labs 24H Item Value Date Time White Blood Count 9.1 K/mm3 06/05/16 0605 Red Blood Count 4.21 M/mm3 L 06/05/16 0605 Hemoglobin 12.4 g/dl L 06/05/16 0605 Hematocrit 37.6 % L 06/05/16 0605 Mean Corpuscular Volume 89.4 fl 06/05/16 0605 Mean Corpuscular Hemoglobin 29.4 pg 06/05/16 0605 Mean Corpuscular Hemoglobin Concent 32.9 g/dl 06/05/16 0605 Red Cell Distribution Width 12.4 % 06/05/16 0605 Platelet Count 219 k/mm3 06/05/16 0605 Sodium Level 143 MEQ/L 06/05/16 0605 Potassium Level 3.8 MEQ/L 06/05/16 0605 Chloride Level 109 MEQ/L H 06/05/16 0605 Carbon Dioxide Level 27 MEQ/L 06/05/16 0605 Anion Gap 7 MEQ/L L 06/05/16 0605 Blood Urea Nitrogen 9 MG/DL 06/05/16 0605 Creatinine 0.94 MG/DL 06/05/16 0605 Glomerular Filtration Rate > 60.0 06/05/16 0605 Fasting Glucose 95 MG/DL 06/05/16 0605 Calcium Level 8.2 MG/DL L 06/05/16 0605 Magnesium Level 1.9 MG/DL 06/05/16 0605 Total Bilirubin 0.3 MG/DL 06/05/16 0605 Aspartate Amino Transf (AST/SGOT) 94 U/L H 06/05/16 0605 Alanine Aminotransferase (ALT/SGPT) 54 U/L 06/05/16 0605 Alkaline Phosphatase 82 U/L 06/05/16 0605 Total Creatine Kinase 2483 U/L H 06/05/16 0605 Total Protein 5.8 GM/DL L 06/05/16 0605 Albumin 2.7 GM/DL L 06/05/16 0605 Albumin/Globulin Ratio 0.87 L 06/05/16 0605 Salicylates Level < 1.7 MG/DL L 06/02/16 1318 Urine Opiates Screen NEGATIVE 06/02/16 1318 Urine Methadone Screen NEGATIVE 06/02/16 1318 Acetaminophen Level < 2.0 UG/ML L 06/02/16 1318 Urine Barbiturates, Qualitative NEGATIVE 06/02/16 1318 Urine Tricyclic Antidepressants POSITIVE H 06/02/16 1318 Urine Amphetamine Level NEGATIVE 06/02/16 1318 Urine Benzodiazepines Screen NEGATIVE 06/02/16 1318 Urine Cocaine Metabolite NEGATIVE 06/02/16 1318 Urine Cannabinoids NEGATIVE 06/02/16 1318 Ethyl Alcohol Level < 0.003 % 06/02/16 1318 Home Medications Scheduled Losartan Potassium (Losartan Potassium) 50 Mg Tab 50 MG PO DAILY Rivaroxaban (Xarelto) 15 Mg Tab 15 MG PO BID@08,18 Scheduled PRN Acetaminophen (Tylenol) 325 Mg Tab 650 MG PO Q8HP PRN PRN PAIN OR FEVER Albuterol Sulfate (Proventil Hfa) 167 Puff/6.7 Gm Aers 2 PUFF INH Q4H PRN PRN SHORTNESS OF BREATH Albuterol Sulfate (Albuterol Sulfate) 2.5 Mg/3 Ml Nebu 2.5 MG INH Q4H PRN PRN SOB/WHEEZING Allergies Coded Allergies: Meloxicam (Unverified Allergy, Severe, ANAPHYLAXIS, 02/14/16) Trazodone (Verified Adverse Reaction, Severe, DIFFICULTY BREATHING, ) Zolpidem (Verified Adverse Reaction, Mild, HALLUCINATIONS, 12/23/13) Tramadol (Unverified Adverse Reaction, Unknown, 02/17/16) Ashley Almonte Jun 06, 2016 11:10
[2016-06-06 11:18] LABS: MEAN CORPUSCULAR HEMOGLOBIN 28.7 pg (27.0-33.0); MEAN CORPUSCULAR HGB CONC 32.7 g/dl (32.0-36.5); MEAN CORPUSCULAR VOLUME 87.6 fl (80.0-96.0); RED CELL DISTRIBUTION WIDTH 12.9 % (11.5-14.5); WHITE BLOOD COUNT 12.9 K/mm3 (4.0-10.0)
[2016-06-06] MEDS: LOSARTAN 50 MG TAB PO SCH (11:46)
[2016-06-06] MEDS: RIVAROXABAN 15 MG TAB (XARELTO) PO SCH ×2 (11:47→18:19)
[2016-06-06 12:11] LABS: ALBUMIN 3.4 GM/DL (3.2-5.2); ALBUMIN/GLOBULIN RATIO 1.03 (1.00-1.93); ALKALINE PHOSPHATASE 95 U/L (45-117); ALT/SGPT 62 U/L (12-78); ANION GAP 9 MEQ/L (8-16); AST/SGOT 85 U/L (15-37); BILIRUBIN,TOTAL 0.3 MG/DL (0.2-1.0); BLOOD UREA NITROGEN 13 MG/DL (7-18); CALCIUM LEVEL 8.7 MG/DL (8.5-10.1); CARBON DIOXIDE LEVEL 27 MEQ/L (21-32); CHLORIDE LEVEL 105 MEQ/L (98-107); CREATININE FOR GFR 0.94 MG/DL (0.70-1.30); GLOMERULAR FILTRATION RATE > 60.0 (>60); GLUCOSE, FASTING 87 MG/DL (70-105); POTASSIUM SERUM 4.2 MEQ/L (3.5-5.1); SODIUM LEVEL 141 MEQ/L (136-145); TOTAL PROTEIN 6.7 GM/DL (6.4-8.2)
[2016-06-06] MEDS: ACETAMINOPHEN TAB 650MG DOSE (2X325MG) PO PRN (13:13)
[2016-06-06 18:16] VITALS: BP 134/67
[2016-06-06] MEDS: ALBUTEROL 90 MCG/ACT 8GM HFA INHALER INH PRN (18:20)
--- NOTE | 2016-06-06 19:31 | HPEPDOC ---
[facility] History & Physical History and Physical DATE OF ADMISSION: Jun 05, 2016 at 20:00 CHIEF COMPLAINT: "Stupidity, mixing drug meds with alcohol and sleep meds, poor judgement". HISTORY OF THE PRESENT ILLNESS: Patient was brought in for supposed unintentional overdose of his sleep meds that he also used with alcohol. Pt. denies any stressors or life events that aggravated how he was feeling or that upset him. Pt. denies this was an intentional act. Pt. minimizes seriousness of his actions and behavior. PAST PSYCHIATRIC HISTORY: Pt. states he started with therapy and meds about three years ago as he was feeling "blue". Pt. again denies any life stressors that precipitated his therapy and medication start. ALLERGIES: Please see below. TrazadoneBrandon HOME MEDICATIONS: Please see below. - Doxepin 100 mg po q hs for insomnia. -Prozac 60 mg every morning for depression. PAST MEDICAL/SURGICAL HISTORY: 1. Asthma 2. Hypertension. 3. DVT in left arm FAMILY PSYCHIATRIC HISTORY: Patient denies. SOCIAL HISTORY: Patient is with 1 child, a 12-year-old autistic male. Patient does have a girlfriend that he lives with. 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 SUBSTANCE ABUSE HISTORY: Patient denies. Last 2 admissions had alcohol misuse as a contributing factor in the admission. LEGAL HISTORY: Patient denies. VITAL SIGNS: Temperature 95.9, pulse 81, respiratory rate 16, blood pressure 159 /94. LABORATORY DATA: Please see below. UDS on admission POS for TCA. MENTAL STATUS EXAMINATION: Patient is a 35-year-old male, who is pleasant and cooperative, wearing hospital scrubs and T-shirt. Patient appears to have average grooming, is tall, of normal weight and build. Speech: Is of normal rate and volume. Patient is articulate, coherent and spontaneous. Thought processes: Clear and goal directed Rate of thoughts: Normal Thought content: Logical, rational. Abstract reasoning: Adequate. Computation: Adequate. Associations: Intact. Abnormal or psychotic thoughts: Patient denies hallucinations, delusions, paranoia, obsessions or compulsions. Patient further denies HI/SI, preoccupations. Judgment: Poor. Insight: Poor. Oriented to: Time, person, place and situation. Recent/remote memory: "Pretty good ". Attention span and concentration: Fair. Language: Normal. Fund of knowledge: Adequate. Mood: "Good, sucks being in here ". Affect: Appropriate, flat, constricted. DIAGNOSES: Major depressive disorder, recurrent by history, alcohol use disorder ASSESSMENT: Patient was assessed in his room. Patient was found to be sleeping in bed with hospital scrubs and T-shirt on. Patient noted to have average grooming. Patient is pleasant and cooperative, easily engaged. Patient was admitted to the unit last evening. Patient minimizes reasons for being admitted here. However, this is patient's third admission in approximately 3-1/2 years. During that timeframe patient had suicidal ideation and one other admit for suicide attempt. Patient denies all suicidal and homicidal ideation and blames it on being stupid and drinking too much. Patient also admits to taking his meds and drinking at the same time. Patient has no thoughts of self-harm or cutting, states he's never done this. Patient is not forthcoming with additional information, answers most questions with yes or no responses. Patient denies any recent stressors or life events that has aggravated his depressive disorder. Patient requesting to be restarted on his Prozac and doxepin. Will also give patient when necessary med for anxiety as needed. Patient would like Seroquel discontinued. Patient would like to wear his own clothes. Patient understands he can have no drawstrings, belts or laced shoes. PROBLEM LIST: 1. Risk for suicide. 2. Substance abuse. 3. Depression. INITIAL TREATMENT PLAN: Evaluate and assess patient on a continuous basis. Restart patient's home meds as requested. Maintain safety precautions. Patient to attend and participate in unit programming and groups to develop effective coping strategies. Patient to be engaged in discharge planning process to ensure safe and effective discharge plan. Patient to follow-up with primary care physician upon discharge. Patient to resume appointments for therapy and medication management upon discharge. Patient to consider substance abuse support and possible treatment upon discharge. ESTIMATED LENGTH OF STAY: 7-10 days. TIME SPENT EVALUATING AND COORDINATING INITIAL CARE: 50 minutes. Laboratory Data 24H Labs Laboratory Tests 2 06/06/16 11:11: Blood Urea Nitrogen 13, Creatinine 0.94, Sodium Level 141, Potassium Level 4.2, Chloride Level 105, Carbon Dioxide Level 27, Calcium Level 8.7, Aspartate Amino Transf (AST/SGOT) 85H, Alanine Aminotransferase (ALT/SGPT) 62, Total Creatine Kinase 1846H, Alkaline Phosphatase 95, Total Bilirubin 0.3, Total Protein 6.7, Albumin 3.4#, Albumin/Globulin Ratio 1.03, Anion Gap 9, Glomerular Filtration Rate > 60.0 CBC/BMP Laboratory Tests 06/06/16 11:11 Calcium Level 8.7, Aspartate Amino Transf (AST/SGOT) 85 H, Alanine Aminotransferase (ALT/SGPT) 62, Total Creatine Kinase 1846 H, Alkaline Phosphatase 95, Total Bilirubin 0.3, Total Protein 6.7, Albumin 3.4 #, Red Blood Count 4.72, Mean Corpuscular Volume 87.6, Mean Corpuscular Hemoglobin 28.7 , Mean Corpuscular Hemoglobin Concent 32.7, Red Cell Distribution Width 12.9 Medications Scheduled Losartan Potassium (Losartan Potassium) 50 Mg Tab 50 MG PO DAILY (Reported) Rivaroxaban (Xarelto) 15 Mg Tab 15 MG PO BID@08,18 Scheduled PRN Acetaminophen (Tylenol) 325 Mg Tab 650 MG PO Q8HP PRN PRN PAIN OR FEVER Albuterol Sulfate (Proventil Hfa) 167 Puff/6.7 Gm Aers 2 PUFF INH Q4H PRN PRN SHORTNESS OF BREATH (Reported) Albuterol Sulfate (Albuterol Sulfate) 2.5 Mg/3 Ml Nebu 2.5 MG INH Q4H PRN PRN SOB/WHEEZING (Reported) Allergies Coded Allergies: Meloxicam (Unverified Allergy, Severe, ANAPHYLAXIS, 02/14/16) Trazodone (Verified Adverse Reaction, Severe, DIFFICULTY BREATHING, ) Zolpidem (Verified Adverse Reaction, Mild, HALLUCINATIONS, 12/23/13) Tramadol (Unverified Adverse Reaction, Unknown, 02/17/16) ALVINA SUAZO NP Jun 06, 2016 19:31
[2016-06-06] MEDS ORDERED: QUEtiapine FUMARATE 25 MG TAB PO SCH (21:00)
[2016-06-07 06:42] VITALS: BP 140/98
[2016-06-07] MEDS: ALBUTEROL 90 MCG/ACT 8GM HFA INHALER INH PRN (07:00)
[2016-06-07 07:04] LABS: MEAN CORPUSCULAR HEMOGLOBIN 28.9 pg (27.0-33.0); MEAN CORPUSCULAR VOLUME 87.3 fl (80.0-96.0); RED CELL DISTRIBUTION WIDTH 12.8 % (11.5-14.5); WHITE BLOOD COUNT 9.6 K/mm3 (4.0-10.0)
[2016-06-07 07:50] LABS: ALBUMIN 3.4 GM/DL (3.2-5.2); ALBUMIN/GLOBULIN RATIO 1.06 (1.00-1.93); ALKALINE PHOSPHATASE 99 U/L (45-117); ALT/SGPT 62 U/L (12-78); ANION GAP 8 MEQ/L (8-16); AST/SGOT 67 U/L (15-37); BILIRUBIN,TOTAL 0.2 MG/DL (0.2-1.0); BLOOD UREA NITROGEN 14 MG/DL (7-18); CARBON DIOXIDE LEVEL 29 MEQ/L (21-32); CHLORIDE LEVEL 104 MEQ/L (98-107); CREATININE FOR GFR 0.99 MG/DL (0.70-1.30); GLOMERULAR FILTRATION RATE > 60.0 (>60); GLUCOSE, FASTING 88 MG/DL (70-105); POTASSIUM SERUM 4.2 MEQ/L (3.5-5.1); SODIUM LEVEL 141 MEQ/L (136-145); TOTAL PROTEIN 6.6 GM/DL (6.4-8.2)
[2016-06-07] MEDS: RIVAROXABAN 15 MG TAB (XARELTO) PO SCH ×2 (08:21→17:51)
[2016-06-07] MEDS: ACETAMINOPHEN TAB 650MG DOSE (2X325MG) PO PRN ×2 (08:22→20:42)
[2016-06-07] MEDS: FLUoxetine 20 MG CAP PO SCH (08:22)
[2016-06-07] MEDS: LOSARTAN 50 MG TAB PO SCH (08:22)
--- NOTE | 2016-06-07 11:16 | IPNPDOC ---
Assessment/Plan Date Seen The patient was seen on 06/07/16. Problems Problems: (1) Cervical spondylosis Status: Chronic Problem Text: * MRI of cervical spine is discussed with Dr. Arellano from orthopedics today. * The patient's current clinical status is reviewed with Dr. Arellano, imaging is reviewed, his recommendation is for outpatient follow-up. * Will arrange follow-up appointment with orthopedics at discharge. (2) Rhabdomyolysis Status: Acute Problem Text: * CK trending downward. * Recheck in a.m. Plan / VTE VTE Prophylaxis Ordered?: Yes Subjective Review of Systems CC/HPI The patient is a 35-year-old male admitted with a reason for visit of Unspecified Depressive Do. Events since last encounter Patient with no new issues. Objective Physical Examination General Exam: Positive: Alert Eye Exam: Positive: PERRLA ENT Exam: Positive: Atraumatic Chest Exam: Positive: Clear to auscultation, Normal air movement Heart Exam: Positive: Normal S1, Normal S2, Rate Normal, Regular Rhythm, Negative: Murmurs, Rubs Skin Exam: Positive: Nl turgor and temperature Vital Signs/I&O Vital Signs Date Time Temp Pulse Resp B/P Pulse Ox O2 Delivery O2 Flow Rate FiO2 06/07/16 08:22 140/90 06/07/16 06:42 96.8 75 16 06/05/16 20:12 95 Room Air Laboratory Data Labs 24H Laboratory Tests 2 06/07/16 06:29: Blood Urea Nitrogen 14, Creatinine 0.99, Sodium Level 141, Potassium Level 4.2, Chloride Level 104, Carbon Dioxide Level 29, Calcium Level 9.0, Aspartate Amino Transf (AST/SGOT) 67H, Alanine Aminotransferase (ALT/SGPT) 62, Total Creatine Kinase 1134H, Alkaline Phosphatase 99, Total Bilirubin 0.2, Total Protein 6.6, Albumin 3.4, Albumin/Globulin Ratio 1.06, Anion Gap 8, Glomerular Filtration Rate > 60.0 CBC/BMP Laboratory Tests 06/07/16 06:29 Calcium Level 9.0, Aspartate Amino Transf (AST/SGOT) 67 H, Alanine Aminotransferase (ALT/SGPT) 62, Total Creatine Kinase 1134 H, Alkaline Phosphatase 99, Total Bilirubin 0.2, Total Protein 6.6, Albumin 3.4, Red Blood Count 4.95, Mean Corpuscular Volume 87.3, Mean Corpuscular Hemoglobin 28.9, Mean Corpuscular Hemoglobin Concent 33.0, Red Cell Distribution Width 12.8 Ashley Almonte Jun 07, 2016 11:16
[2016-06-07] MEDS: NICOTINE 21MG/24HR 1 EA TRANSDERMAL TD SCH (11:38)
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
[2016-06-07 18:00] VITALS: BP 128/68
[2016-06-07] MEDS: QUEtiapine FUMARATE 50 MG TAB PO SCH (20:41)
[2016-06-07] MEDS: hydrOXYzine 50 MG TAB PO PRN (20:41)
[2016-06-07] MEDS: PREGABALIN 100 MG CAP (LYRICA) PO SCH (23:11)
[2016-06-08 06:38] VITALS: BP 147/88
[2016-06-08] MEDS: LOSARTAN 50 MG TAB PO SCH (08:20)
[2016-06-08] MEDS: RIVAROXABAN 15 MG TAB (XARELTO) PO SCH ×2 (08:20→17:55)
[2016-06-08] MEDS: PREGABALIN 100 MG CAP (LYRICA) PO SCH ×2 (08:20→21:38)
[2016-06-08] MEDS: FLUoxetine 20 MG CAP PO SCH (08:20)
[2016-06-08] MEDS: NICOTINE 21MG/24HR 1 EA TRANSDERMAL TD SCH (08:21)
[2016-06-08 18:00] VITALS: BP 139/75
[2016-06-08] MEDS: QUEtiapine FUMARATE 50 MG TAB PO SCH (21:37)
[2016-06-08] MEDS: ACETAMINOPHEN TAB 650MG DOSE (2X325MG) PO PRN (21:39)
--- NOTE | 2016-06-09 03:29 | IPN ---
DATE OF SERVICE: 06/08/2016 SUBJECTIVE: "I know what I did was stupid." OBJECTIVE: Patient reports improvement. Denies side effect from medication. Patient does not present psychomotor retardation. His facial expression has normalized. Patient is somewhat minimizing the events that led to his admission and has limited insight. MENTAL STATUS EXAMINATION: Patient is dressed in [facility]. Patient is cooperative during exam, has fair eye contact. Speech is normal in rate, volume. Articulation is coherent and is spontaneous. Mood is depressed and anxious. Affect is somewhat restricted. No delusions or hallucinations. Short and long-term memory are intact. Patient is fully oriented. Associations are intact. Thinking is logical. Thought content is appropriate. Patient denies suicidal or homicidal ideation, but he is focused on discharge issues and is minimizing the events that led to his admission. Insight and judgment is limited. ASSESSMENT: 1. Depression. 2. Alcohol abuse. PLAN: 1. Continue with Seroquel 50 mg by mouth nightly. 2. Continue with Prozac 60 every morning. 3. Continue with medication management, individual and group therapy.
[2016-06-09 06:22] VITALS: BP 131/55
[2016-06-09] MEDS: ALBUTEROL 90 MCG/ACT 8GM HFA INHALER INH PRN ×2 (06:31→23:13)
[2016-06-09] MEDS: FLUoxetine 20 MG CAP PO SCH (08:11)
[2016-06-09] MEDS: PREGABALIN 100 MG CAP (LYRICA) PO SCH ×2 (08:11→20:09)
[2016-06-09] MEDS: NICOTINE 21MG/24HR 1 EA TRANSDERMAL TD SCH (08:11)
[2016-06-09] MEDS: RIVAROXABAN 15 MG TAB (XARELTO) PO SCH ×2 (08:12→18:03)
[2016-06-09] MEDS: LOSARTAN 50 MG TAB PO SCH (08:12)
[2016-06-09 18:00] VITALS: BP 136/78
--- NOTE | 2016-06-09 19:13 | IPN ---
DATE: 06/09/2016 SUBJECTIVE: "I feel much better." OBJECTIVE: The patient continues to report improvement and he is hoping that he will be discharged soon. He continues to somewhat minimize the events that led to his admission. There is no evidence of psychomotor retardation. His facial expression and symptoms have improved throughout the hospitalization. MENTAL STATUS EXAMINATION: The patient dressed in [facility]. The patient is cooperative during exam. Has good eye contact. Speech is normal in rate, volume, and articulation. The patient is coherent and spontaneous. Mood is less depressed and less anxious. Affect is congruent with mood. The patient is fully oriented. Associations are intact. Thinking is logical. Thought content is appropriate. The patient denies suicidal ideation. Insight and judgment are fair. ASSESSMENT: 1. Depression. 2. Alcohol abuse. PLAN: 1. Continue Seroquel 50 mg by mouth at bedtime 2. Continue Prozac 60 mg by mouth every morning 3. Continue medication management, individual and group therapy.
[2016-06-09] MEDS: QUEtiapine FUMARATE 50 MG TAB PO SCH (20:08)
[2016-06-09] MEDS: ACETAMINOPHEN TAB 650MG DOSE (2X325MG) PO PRN (20:09)
[2016-06-10 06:28] VITALS: BP 130/56
[2016-06-10] MEDS: ALBUTEROL 90 MCG/ACT 8GM HFA INHALER INH PRN (06:35)
[2016-06-10] MEDS: PREGABALIN 100 MG CAP (LYRICA) PO SCH ×2 (08:17→20:56)
[2016-06-10] MEDS: RIVAROXABAN 15 MG TAB (XARELTO) PO SCH ×2 (08:17→18:01)
[2016-06-10] MEDS: NICOTINE 21MG/24HR 1 EA TRANSDERMAL TD SCH (08:17)
[2016-06-10] MEDS: FLUoxetine 20 MG CAP PO SCH (08:17)
[2016-06-10] MEDS: LOSARTAN 50 MG TAB PO SCH (08:17)
[2016-06-10 11:15] LABS: ALBUMIN 3.5 GM/DL (3.2-5.2); ALBUMIN/GLOBULIN RATIO 1.06 (1.00-1.93); ALKALINE PHOSPHATASE 90 U/L (45-117); ALT/SGPT 59 U/L (12-78); ANION GAP 6 MEQ/L (8-16); AST/SGOT 27 U/L (15-37); BILIRUBIN,TOTAL 0.2 MG/DL (0.2-1.0); BLOOD UREA NITROGEN 19 MG/DL (7-18); CALCIUM LEVEL 8.5 MG/DL (8.5-10.1); CARBON DIOXIDE LEVEL 28 MEQ/L (21-32); CHLORIDE LEVEL 105 MEQ/L (98-107); GLOMERULAR FILTRATION RATE > 60.0 (>60); GLUCOSE, FASTING 89 MG/DL (70-105); SODIUM LEVEL 139 MEQ/L (136-145); TOTAL PROTEIN 6.8 GM/DL (6.4-8.2)
--- NOTE | 2016-06-10 11:18 | IPNPDOC ---
Assessment/Plan Date Seen The patient was seen on 06/10/16. Problems Problems: (1) Cervical spondylosis Status: Chronic Problem Text: * MRI of cervical spine is discussed with Dr. Arellano from orthopedics today. * The patient's current clinical status is reviewed with Dr. Arellano, imaging is reviewed, his recommendation is for outpatient follow-up. * Will arrange follow-up appointment with orthopedics at discharge. * Pt is aware. (2) Rhabdomyolysis Status: Acute Problem Text: * CK trending downward. * Update labs. (3) DVT (deep venous thrombosis) Status: Acute Problem Text: * Continue Xarelto. (4) Tobacco use Status: Chronic Problem Text: * Pt would like to try Nicoderm 14 * Tobacco cessation encouraged. (5) HTN (hypertension) Status: Chronic Problem Text: * Cont Cozaar Plan / VTE VTE Prophylaxis Ordered?: Yes Subjective Review of Systems CC/HPI The patient is a 35-year-old male admitted with a reason for visit of Unspecified Depressive Do. Events since last encounter Patient states still with numbness in the fingers of his right hand. Some discomfort and numbness in his left upper arm. Objective Physical Examination General Exam: Positive: Alert Eye Exam: Positive: PERRLA ENT Exam: Positive: Atraumatic Chest Exam: Positive: Clear to auscultation, Normal air movement Heart Exam: Positive: Normal S1, Normal S2, Rate Normal, Regular Rhythm, Negative: Murmurs, Rubs Skin Exam: Positive: Nl turgor and temperature Vital Signs/I&O Vital Signs Date Time Temp Pulse Resp B/P Pulse Ox O2 Delivery O2 Flow Rate FiO2 06/10/16 08:17 122/70 06/10/16 06:28 96.5 62 16 06/08/16 09:50 Room Air 06/05/16 20:12 95 Laboratory Data Labs 24H Laboratory Tests 2 06/10/16 10:30: Ashley Almonte Jun 10, 2016 11:18
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
[2016-06-10] MEDS: ACETAMINOPHEN TAB 650MG DOSE (2X325MG) PO PRN (17:14)
[2016-06-10 18:14] VITALS: BP 129/65
[2016-06-10] MEDS: QUEtiapine FUMARATE 50 MG TAB PO SCH (20:55)
[2016-06-11 06:21] VITALS: BP 152/85
[2016-06-11] MEDS: RIVAROXABAN 15 MG TAB (XARELTO) PO SCH ×2 (08:17→18:03)
[2016-06-11] MEDS: LOSARTAN 50 MG TAB PO SCH (08:18)
[2016-06-11] MEDS: PREGABALIN 100 MG CAP (LYRICA) PO SCH ×2 (08:18→20:34)
[2016-06-11] MEDS: FLUoxetine 20 MG CAP PO SCH (08:18)
[2016-06-11] MEDS: NICOTINE 14 MG/24 HR TRANSDERMAL TD SCH (08:19)
[2016-06-11] MEDS: ALBUTEROL 90 MCG/ACT 8GM HFA INHALER INH PRN (09:07)
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
[2016-06-11] MEDS ORDERED: FLUO20CA9 PO (17:51)
[2016-06-11] MEDS ORDERED: HYDRO50TAB PO (17:51)
[2016-06-11] MEDS ORDERED: QUET5TAB PO (17:51)
[2016-06-11] MEDS: hydrOXYzine 50 MG TAB PO PRN (20:34)
[2016-06-11] MEDS: QUEtiapine FUMARATE 50 MG TAB PO SCH (20:34)
[2016-06-11 21:50] VITALS: BP 130/78
[2016-06-12 06:34] VITALS: BP 156/97
[2016-06-12 08:22] VITALS: BP 134/74
[2016-06-12] MEDS: FLUoxetine 20 MG CAP PO SCH (08:22)
[2016-06-12] MEDS: RIVAROXABAN 15 MG TAB (XARELTO) PO SCH (08:22)
[2016-06-12] MEDS: LOSARTAN 50 MG TAB PO SCH (08:22)
[2016-06-12] MEDS: PREGABALIN 100 MG CAP (LYRICA) PO SCH (08:22)
[2016-06-12] MEDS: NICOTINE 14 MG/24 HR TRANSDERMAL TD SCH (08:24)
[2016-06-12] MEDS ORDERED: LYRI200C PO (12:07)
[2016-06-12] MEDS ORDERED: NICO14DI3 TD (12:07)
[2016-06-12] MEDS ORDERED: XARE20TA PO (12:07)
[2016-06-12] MEDS ORDERED: XARE15TA PO (12:45)
[2016-06-12] MEDS ORDERED: NICO14PA TD (12:45)
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
[2016-06-27] MEDS ORDERED: RIVAROXABAN 20 MG TAB (XARELTO) PO SCH (08:00)
== END 2016-06-12 13:00 | disposition home or self-care (01) | DRG 751 ==
LOC: M PSY 20:00
PROVIDERS: ADMIT Psychiatry & Neurology Psychiatry; ATTEND Psychiatry & Neurology Psychiatry
DX: F33.9 Major depressive disorder, recurrent, unspecified (principal); I82.622 Acute embolism and thrombosis of deep veins of left upper extremity; M47.12 Other spondylosis with myelopathy, cervical region; M62.82 Rhabdomyolysis; F10.20 Alcohol dependence, uncomplicated; F17.228 Nicotine dependence, chewing tobacco, with other nicotine-induced disorders; J45.909 Unspecified asthma, uncomplicated; R20.2 Paresthesia of skin; M54.5 Low back pain; R94.31 Abnormal electrocardiogram [ECG] [EKG]; I10 Essential (primary) hypertension; Z79.899 Other long term (current) drug therapy; Z88.8 Allergy status to other drugs, medicaments and biological substances; Z79.01 Long term (current) use of anticoagulants

== ENCOUNTER 2016-06-28 14:46 | Emergency (ER) | payer OTHER ==
[~2016-06-28 14:46] MED LIST changes: +HYDRO50TAB PO; +NICO14DI3 TD; +NICO14PA TD; +XARE20TA PO
--- NOTE | 2016-06-28 16:27 | REP ---
Clinical: Known deep venous thrombosis with increasing pain. Technique: Real time valderrama scale and color Doppler evaluation of the left upper extremity deep venous structures using linear high frequency transducer. Findings: Ultrasound examination demonstrates patent left jugular, subclavian, and cephalic veins. Occlusive thrombus is identified within the left axillary vein, mid brachial vein and diffusely throughout the basilic vein. In comparison to prior examination subjectively, there appears to be increased thrombus within similar distribution. Impression: Subjectively increased thrombus load in similar distribution as compared to prior examination involving the axillary, basilic, and mid brachial veins. Signed by Delvis Guerrero MD 06/28/2016 04:18 P
[2016-06-28] MEDS ORDERED: WARFARIN SOD 5 MG TAB As Ordered ONE (19:05)
[2016-06-28] MEDS ORDERED: ENOXAPARIN 100MG/1ML SYRINGE (J1650) As Ordered ONE (19:05)
--- NOTE | 2016-06-28 19:20 | EDDOCDS ---
Nurse's Notes [facility] Name: Allen Jimenez Age: 35 yrs Sex: Male : 1980 Arrival Date: 06/28/2016 Time: 14:46 Bed I7 / 29 Private MD: Randy Pritchett Diagnosis: Acute embolism and thrombosis of deep veins of left upper extremity Presentation: 06/28 14:49 Presenting complaint: Patient states: left arm feels like its getting bigger. dx with srm blood clot a few weeks ago in the same arm. over past couple of days noticed it feels bigger. Presenting complaint: Patient states: takes xarelto. Adult Sepsis Screening: The patient does not have new or worsening altered mentation. Patient's respiratory rate is less than 22. Systolic blood pressure is greater than 100. Patient has a qSOFA score of 0- Negative Sepsis Screen. Suicide/Homicide risk assessment- the patient denies having any suicidal and/or homicidal ideations and does not present with any other emotional, behavioral or mental health complaints. Status: Patient is not a environmental field services technician or dependent. Transition of care: patient was not received from another setting of care. 14:49 Acuity: JOYCE Level 4 [facility] 14:49 Method Of Arrival: Walkin/Carried/Asstd [facility] Triage Assessment: 14:51 General: Appears in no apparent distress, Behavior is appropriate for age, cooperative. srm Pain: Pain currently is 7 out of 10 on a pain scale. HIV screening NA for this visit Offered previously. Musculoskeletal: Reports left arm feels bigger. Historical: - Allergies: Ambien; Mobic (Anaphylaxis); Tramadol HClseizure; - Home Meds: 1. atorvastatin 20 mg oral tab 1 tab once daily 2. Seroquel 50 mg Oral tab hs 3. fluoxetine 20 mg Oral cap 3 caps once daily 4. losartan 50 mg oral tab 1 tab once daily 5. pregabalin 200 mg Oral cap 1 cap 2 times per day 6. Xarelto 20 mg oral tab 1 tab once daily - PMHx: Asthma; Chronic Back pain; Depression; dvt left arm; - PSHx: Colonoscopy; - Social history: Smoking status: Chewing Tobacco No barriers to communication noted, The patient speaks fluent Bahraini, Speaks appropriately for age. - Family history: Not pertinent. - : The pt / caregiver states he / she is on anticoagulants: Xarelto Home medication list is obtained from the patient. - Exposure Risk Screening:: None identified. Screenin:03 Screening information is obtained from the patient. Fall risk: No risks identified. pml Assistance ADL's: requires no assistance with activities of daily living. Abuse/DV Screen: The patient / caregiver reports he/she is: not in a situation that causes fear, pain or injury. Nutritional screening: No deficits noted. Advance Directives: Currently, there is no health care proxy. home support is adequate. Assessment: 18:02 General: Appears in no apparent distress, Behavior is appropriate for age, cooperative. pml Neurological: Level of Consciousness is awake, alert, Oriented to person, place, time. Cardiovascular: Capillary refill < 3 seconds. Respiratory: Airway is patent Respiratory effort is even, unlabored. GI: Abdomen is non- distended. Derm: Skin is pink, warm & dry. Musculoskeletal: Circulation, motion, and sensation intact Capillary refill < 3 seconds Range of motion intact in all extremities. 19:16 Reassessment: Patient appears in no apparent distress at this time. Patient denies pain slm at this time. Vital Signs: 14:48 BP 145 / 79; Pulse 73; Resp 18; Temp 98.5(T); Pulse Ox 100% on R/A; Weight 104.33 kg; dem1 Height 6 ft. 0 in. (182.88 cm); Pain 7/10; 16:40 BP 125 / 77; Pulse 72; Resp 18; Pulse Ox 98% ; Pain 7/10; jb5 19:15 BP 143 / 88; Pulse 69; Resp 16; Temp 98.1; Pulse Ox 97% on R/A; Pain 0/10; slm 14:48 Body Mass Index 31.19 (104.33 kg, 182.88 cm) [email or web address] Vitals: 14:48 Log In Time: June 28, 2016 at 14:45. [email or web address] ED Course: 14:48 Patient visited by Sangeeta Parker. dem1 14:48 Randy Pritchett is Private Physician. dem1 14:48 Patient moved to Waiting dem1 14:48 Patient moved to Pre RCE dem1 14:50 Triage Initiated srm 14:55 Patient moved to Triage 3 mb9 15:16 [facility]aceres [facility]-C [facility]. dt4 15:16 Alessandro Villarreal MD is Attending Physician. dt4 15:16 Patient visited by Cammie Caceres PA-C. dt4 15:31 Patient moved to TR2 jb5 16:37 Patient moved to PR jb5 16:40 Patient visited by Shanta Pantoja PCA. jb5 17:05 US Upper Extremity R/O DVT Returned. EDMS 17:19 Patient moved to I jb5 18:00 PHCP role handed off by Cammie Caceres PA-C mo1 18:00 Aditya Helm PA is PHCP. mo1 18:03 Patient visited by Juana Patterson RN. pml 18:03 The patient / caregiver is instructed regarding the plan of care and ED course. Patient pml has correct armband on for positive identification. Bed in low position. Call light in reach. Side rails up X2. 19:10 Randy Pritchett is Referral Physician. mo1 19:18 Patient visited by Gloria Hamilton LPN. slm 19:18 No IV's were initiated during this patient's visit. No procedures done that require slm assistance. Administered Medications: 19:12 Drug: Warfarin 2.5 mg [warfarin 5 mg tablet (0.5 tabs)] Route: PO; mcp 19:14 Drug: Enoxaparin (1mg/kg) 104.33 mg {Co-Signature: slm (Gloria Hamilton LPN).} mcp Route: Sub-Q; Site: right upper abdomen; Order Results: Radiology Order: US Upper Extremity R/O DVT Test: US Upper Extremity R/O DVT REASON FOR EXAMINATION: LEFT UE, HX OF DVT, THINKS WORSE; Clinical: Known deep venous thrombosis with increasing pain.; ; Technique: Real time valderrama scale and color Doppler evaluation of the left upper; extremity deep venous structures using linear high frequency transducer.; ; Findings:; Ultrasound examination demonstrates patent left jugular, subclavian, and cephalic; veins. Occlusive thrombus is identified within the left axillary vein, mid; brachial vein and diffusely throughout the basilic vein. In comparison to prior; examination subjectively, there appears to be increased thrombus within similar; distribution.; ; Impression:; Subjectively increased thrombus load in similar distribution as compared to prior; examination involving the axillary, basilic, and mid brachial veins.; ; ; Signed by; Delvis Guerrero MD 06/28/2016 04:18 P; Outcome: 19:10 Discharge ordered by Provider. mo1 19:17 Discharge Assessment: Patient awake, alert and oriented x 3. No cognitive and/or slm functional deficits noted. Patient verbalized understanding of disposition instructions. patient administered narcotics - no. The following High Risk Discharge criteria are identified: None. Discharged to home ambulatory. Condition: good. Discharge instructions given to patient, Instructed on discharge instructions, follow up and referral plans. medication usage, Demonstrated understanding of instructions, medications, Pt was receptive of discharge instructions/ teaching. Prescriptions given X 2. Property :Personal belongings accompany Pt. 19:18 Ultrasound Study completed. slm 19:18 Patient left the ED. slm Signatures: Dispatcher [employer] EDMS Adrianna Dominguez, RN Aracely Jamil RN Shanta Kilgore mcp, REHAN DATA CLERK jb5 Juana Patterson RN RN pml Mack, Demeishia dem1 Aditya Helm PA PA mo1 Gloria Hamilton LPN LPN slm Tschudi, Diane, PA-C PASherry dt4 Aditya Akers RN RN mb9 Gloria lamar MTDOscar
--- NOTE | 2016-06-28 19:20 | EDDOCDS ---
Physician Documentation [facility] Name: Allen Jimenez Age: 35 yrs Sex: Male : 1980 Arrival Date: 06/28/2016 Time: 14:46 Bed I7 / 29 Private MD: Randy Pritchett Disposition: 06/28/16 19:10 Discharged to Home/Self Care. Impression: Acute embolism and thrombosis of deep veins of left upper extremity. - Condition is Stable. - Discharge Instructions: Deep Vein Thrombosis. - Prescriptions for Coumadin 2.5 mg Oral Tablet - take 1 tablet by ORAL route once daily; 20 tablet. Lovenox 100 mg/mL Subcutaneous Syringe - inject 1 milliliter by SUBCUTANEOUS route 2 times per day; 10 Syringe. - Medication Reconciliation, Local Pharmacy Hours form. - Follow up: Randy Pritchett; When: 2 - 3 days; Reason: Recheck today's complaints, Continuance of care. - Problem is an ongoing problem. - Symptoms have worsened. Historical: - Allergies: Ambien; Mobic (Anaphylaxis); Tramadol HClseizure; - Home Meds: 1. atorvastatin 20 mg oral tab 1 tab once daily 2. Seroquel 50 mg Oral tab hs 3. fluoxetine 20 mg Oral cap 3 caps once daily 4. losartan 50 mg oral tab 1 tab once daily 5. pregabalin 200 mg Oral cap 1 cap 2 times per day 6. Xarelto 20 mg oral tab 1 tab once daily - PMHx: Asthma; Chronic Back pain; Depression; dvt left arm; - PSHx: Colonoscopy; - Social history: Smoking status: Chewing Tobacco No barriers to communication noted, The patient speaks fluent Upper Sorbian, Speaks appropriately for age. - Family history: Not pertinent. - : The pt / caregiver states he / she is on anticoagulants: Xarelto Home medication list is obtained from the patient. - Exposure Risk Screening:: None identified. Vital Signs: 06/28 14:48 BP 145 / 79; Pulse 73; Resp 18; Temp 98.5(T); Pulse Ox 100% on R/A; Weight 104.33 kg / dem1 230.01 lbs; Height 6 ft. 0 in. (182.88 cm); Pain 7/10; 16:40 BP 125 / 77; Pulse 72; Resp 18; Pulse Ox 98% ; Pain 7/10; jb5 19:15 BP 143 / 88; Pulse 69; Resp 16; Temp 98.1; Pulse Ox 97% on R/A; Pain 0/10; slm 14:48 Body Mass Index 31.19 (104.33 kg, 182.88 cm) dem1 MDM: 15:24 Financial registration complete. lg 15:34 US Upper Extremity R/O DVT Ordered. EDMS 17:02 ED course: SPOKE WITH DR. SORTO REGARDING THIS PT AND ULTRASOUND REPORT. ADVISED TO dt4 SPEAK WITH DR. GUZMÁN (HOSPITALIST) REGARDING ADMISSION VS TRANSFER. ADVISED BECAUSE WE DO NOT HAVE I.R. OR VASCULAR SURGERY COVERAGE, TO CALL [facility] OR [facility] IN [place] TO SEE IF THIS PT NEEDS INTERVENTION OF THIS THROMBUS THIS WEEKEND, OR IF THIS COULD BE MEDICALLY MANAGED HERE. . 17:20 ED course: SPOKE WITH DR. CHOI, INTERVENTIONAL RADIOLOGIST AT [facility]. ADVISED BECAUSE dt4 THIS DOES NOT INVOLVE THE SUBCLAVIAN VEIN, IT IS NOT A "MEDICAL EMERGENCY". ADVISED MAY MANAGE MEDICALLY AND TALK TO I.R. HERE IN THE NEAR FUTURE IF PT NOT RESPONDING TO COUMADIN/LOVENOX.. 17:25 requires 7 blue tops, 1 tiger top, 3 purple tops per lab 4.21.14 ordered. dt4 17:26 PT/INR Ordered. EDMS 17:26 PTT Ordered. EDMS 17:26 Protein C Functional Activity Ordered. EDMS 17:26 Protein S Functional Activity Ordered. EDMS 17:26 Anti Thrombin 3 Panel (ag/ac) Ordered. EDMS 17:27 Anti-Cardiolipin Antibodies Ordered. EDMS 17:27 Factor V Leiden Ordered. EDMS 17:30 Enoxaparin (1mg/kg) 1 mg/kg Sub-Q once; Ensure no Heparin in past 6hrs. Ensure any dt4 baseline labs are drawn. ordered. 17:30 Warfarin 2.5 mg PO once ordered. dt4 17:33 Misc. Nursing Order ordered. dt4 17:39 ED course: SPOKE WITH PHARMACIST REGARDING INTERACTION BETWEEN FLUOXETINE AND COUMADIN, dt4 ADVISED THE FLUOXETINE INTERFERES WITH THE BREAKDOWN OF COUMADIN AND WILL THEREFORE RAISE THE INR. ADVISED NOT TO START WITH A HIGH DOSE OF COUMADIN WITH THIS PT AND CLOSELY MONITOR. . 17:54 US Upper Extremity R/O DVT Reviewed. mo1 19:16 Lupus Type Anticoagulant Ordered. EDMS Administered Medications: 19:12 Drug: Warfarin 2.5 mg [warfarin 5 mg tablet (0.5 tabs)] Route: PO; [facility] 19:14 Drug: Enoxaparin (1mg/kg) 104.33 mg {Co-Signature: slm (Gloria Hamilton LPN).} [facility] Route: Sub-Q; Site: right upper abdomen; Signatures: Dispatcher [employer] EDMS Adrianna Dominguez RN RN srm Ganter, LoriLee, Juana Ornelas lg, RN RN pml O'Hagan, Michael, PA PA mo1 Gloria Hamilton LPN LPN slm Tschudi, Diane, PA-C PA-C dt4 Peters, Mary RN [facility] Gloria lamar The chart was reviewed and I authenticate all verbal orders and agree with the evaluation and treatment provided.Corrections: (The following items were deleted from the chart) 19:16 17:27 Lupus Type Anticoagulant+LAB ordered. EDMS EDMS MTDD
[2016-06-28 19:29] LABS: INR 1.28
--- NOTE | 2016-06-30 20:19 | EDDOCDS ---
Physician Documentation [facility] Name: Allen Jimenez Age: 35 yrs Sex: Male : 1980 Arrival Date: 06/28/2016 Time: 14:46 Bed I7 / 29 Private MD: Randy Pritchett Disposition: 06/28/16 19:10 Discharged to Home/Self Care. Impression: Acute embolism and thrombosis of deep veins of left upper extremity. - Condition is Stable. - Discharge Instructions: Deep Vein Thrombosis. - Prescriptions for Coumadin 2.5 mg Oral Tablet - take 1 tablet by ORAL route once daily; 20 tablet. Lovenox 100 mg/mL Subcutaneous Syringe - inject 1 milliliter by SUBCUTANEOUS route 2 times per day; 10 Syringe. - Medication Reconciliation, Local Pharmacy Hours form. - Follow up: Randy Pritchett; When: 2 - 3 days; Reason: Recheck today's complaints, Continuance of care. - Problem is an ongoing problem. - Symptoms have worsened. Historical: - Allergies: Ambien; Mobic (Anaphylaxis); Tramadol HClseizure; - Home Meds: 1. atorvastatin 20 mg oral tab 1 tab once daily 2. Seroquel 50 mg Oral tab hs 3. fluoxetine 20 mg Oral cap 3 caps once daily 4. losartan 50 mg oral tab 1 tab once daily 5. pregabalin 200 mg Oral cap 1 cap 2 times per day 6. Xarelto 20 mg oral tab 1 tab once daily - PMHx: Asthma; Chronic Back pain; Depression; dvt left arm; - PSHx: Colonoscopy; - Social history: Smoking status: Chewing Tobacco No barriers to communication noted, The patient speaks fluent Lao, Speaks appropriately for age. - Family history: Not pertinent. - : The pt / caregiver states he / she is on anticoagulants: Xarelto Home medication list is obtained from the patient. - Exposure Risk Screening:: None identified. Vital Signs: 06/28 14:48 BP 145 / 79; Pulse 73; Resp 18; Temp 98.5(T); Pulse Ox 100% on R/A; Weight 104.33 kg / dem1 230.01 lbs; Height 6 ft. 0 in. (182.88 cm); Pain 7/10; 16:40 BP 125 / 77; Pulse 72; Resp 18; Pulse Ox 98% ; Pain 7/10; jb5 19:15 BP 143 / 88; Pulse 69; Resp 16; Temp 98.1; Pulse Ox 97% on R/A; Pain 0/10; slm 14:48 Body Mass Index 31.19 (104.33 kg, 182.88 cm) dem1 MDM: 15:24 Financial registration complete. lg 15:34 US Upper Extremity R/O DVT Ordered. EDMS 17:02 ED course: SPOKE WITH DR. SORTO REGARDING THIS PT AND ULTRASOUND REPORT. ADVISED TO dt4 SPEAK WITH DR. GUZMÁN (HOSPITALIST) REGARDING ADMISSION VS TRANSFER. ADVISED BECAUSE WE DO NOT HAVE I.R. OR VASCULAR SURGERY COVERAGE, TO CALL [facility] OR [facility] IN [place] TO SEE IF THIS PT NEEDS INTERVENTION OF THIS THROMBUS THIS WEEKEND, OR IF THIS COULD BE MEDICALLY MANAGED HERE. . 17:20 ED course: SPOKE WITH DR. CHOI, INTERVENTIONAL RADIOLOGIST AT [facility]. ADVISED BECAUSE dt4 THIS DOES NOT INVOLVE THE SUBCLAVIAN VEIN, IT IS NOT A "MEDICAL EMERGENCY". ADVISED MAY MANAGE MEDICALLY AND TALK TO I.R. HERE IN THE NEAR FUTURE IF PT NOT RESPONDING TO COUMADIN/LOVENOX.. 17:25 requires 7 blue tops, 1 tiger top, 3 purple tops per lab 4.21.14 ordered. dt4 17:26 PT/INR Ordered. EDMS 17:26 PTT Ordered. EDMS 17:26 Protein C Functional Activity Ordered. EDMS 17:26 Protein S Functional Activity Ordered. EDMS 17:26 Anti Thrombin 3 Panel (ag/ac) Ordered. EDMS 17:27 Anti-Cardiolipin Antibodies Ordered. EDMS 17:27 Factor V Leiden Ordered. EDMS 17:30 Enoxaparin (1mg/kg) 1 mg/kg Sub-Q once; Ensure no Heparin in past 6hrs. Ensure any dt4 baseline labs are drawn. ordered. 17:30 Warfarin 2.5 mg PO once ordered. dt4 17:33 Misc. Nursing Order ordered. dt4 17:39 ED course: SPOKE WITH PHARMACIST REGARDING INTERACTION BETWEEN FLUOXETINE AND COUMADIN, dt4 ADVISED THE FLUOXETINE INTERFERES WITH THE BREAKDOWN OF COUMADIN AND WILL THEREFORE RAISE THE INR. ADVISED NOT TO START WITH A HIGH DOSE OF COUMADIN WITH THIS PT AND CLOSELY MONITOR. . 17:54 US Upper Extremity R/O DVT Reviewed. mo1 19:16 Lupus Type Anticoagulant Ordered. EDMS 20:19 T-Sheet-- Draft Copy was scanned into [employer] and attached to record. [facility] 06/29 08:26 [facility] Payment Agreement was scanned into [employer] and attached to record. lg Administered Medications: 06/28 19:12 Drug: Warfarin 2.5 mg [warfarin 5 mg tablet (0.5 tabs)] Route: PO; [facility] 19:14 Drug: Enoxaparin (1mg/kg) 104.33 mg {Co-Signature: slm (Gloria Hamilton LPN).} [facility] Route: Sub-Q; Site: right upper abdomen; Signatures: Dispatcher [employer] EDMS Adrianna Dominguez, RN Josemanuel Campbell, Juana Ornelas lg, RN RN pml O'Hagan, Michael, PA PA mo1 McIntyre, Stephanie, LPN LPN slm Tschudi, Diane, PA-C PA-C dt4 Redder, Kathie klr Peters, Mary RN [facility] Gloria lamar The chart was reviewed and I authenticate all verbal orders and agree with the evaluation and treatment provided.Corrections: (The following items were deleted from the chart) 19:16 17:27 Lupus Type Anticoagulant+LAB ordered. EDMS EDMS Attachments: 20:19 T-Sheet-- Draft Copy [facility] 06/29 08:26 [facility] Payment Agreement lg Chart Complete MTDD
--- NOTE | 2016-06-30 20:19 | EDDOCDS ---
Physician Documentation [facility] Name: Allen Jimenez Age: 35 yrs Sex: Male : 1980 Arrival Date: 06/28/2016 Time: 14:46 Bed I7 / 29 Private MD: Randy Pritchett Disposition: 06/28/16 19:10 Discharged to Home/Self Care. Impression: Acute embolism and thrombosis of deep veins of left upper extremity. - Condition is Stable. - Discharge Instructions: Deep Vein Thrombosis. - Prescriptions for Coumadin 2.5 mg Oral Tablet - take 1 tablet by ORAL route once daily; 20 tablet. Lovenox 100 mg/mL Subcutaneous Syringe - inject 1 milliliter by SUBCUTANEOUS route 2 times per day; 10 Syringe. - Medication Reconciliation, Local Pharmacy Hours form. - Follow up: Randy Pritchett; When: 2 - 3 days; Reason: Recheck today's complaints, Continuance of care. - Problem is an ongoing problem. - Symptoms have worsened. Historical: - Allergies: Ambien; Mobic (Anaphylaxis); Tramadol HClseizure; - Home Meds: 1. atorvastatin 20 mg oral tab 1 tab once daily 2. Seroquel 50 mg Oral tab hs 3. fluoxetine 20 mg Oral cap 3 caps once daily 4. losartan 50 mg oral tab 1 tab once daily 5. pregabalin 200 mg Oral cap 1 cap 2 times per day 6. Xarelto 20 mg oral tab 1 tab once daily - PMHx: Asthma; Chronic Back pain; Depression; dvt left arm; - PSHx: Colonoscopy; - Social history: Smoking status: Chewing Tobacco No barriers to communication noted, The patient speaks fluent Latvian, Speaks appropriately for age. - Family history: Not pertinent. - : The pt / caregiver states he / she is on anticoagulants: Xarelto Home medication list is obtained from the patient. - Exposure Risk Screening:: None identified. Vital Signs: 06/28 14:48 BP 145 / 79; Pulse 73; Resp 18; Temp 98.5(T); Pulse Ox 100% on R/A; Weight 104.33 kg / dem1 230.01 lbs; Height 6 ft. 0 in. (182.88 cm); Pain 7/10; 16:40 BP 125 / 77; Pulse 72; Resp 18; Pulse Ox 98% ; Pain 7/10; jb5 19:15 BP 143 / 88; Pulse 69; Resp 16; Temp 98.1; Pulse Ox 97% on R/A; Pain 0/10; slm 14:48 Body Mass Index 31.19 (104.33 kg, 182.88 cm) dem1 MDM: 15:24 Financial registration complete. lg 15:34 US Upper Extremity R/O DVT Ordered. EDMS 17:02 ED course: SPOKE WITH DR. SORTO REGARDING THIS PT AND ULTRASOUND REPORT. ADVISED TO dt4 SPE[address] GUZMÁN (HOSPITALIST) REGARDING ADMISSION VS TRANSFER. ADVISED BECAUSE WE DO NOT HAVE I.R. OR VASCULAR SURGERY COVERAGE, TO CALL [facility] OR [facility] IN [place] TO SEE IF THIS PT NEEDS INTERVENTION OF THIS THROMBUS THIS WEEKEND, OR IF THIS COULD BE MEDICALLY MANAGED HERE. . 17:20 ED course: SPOKE WITH DR. CHOI, INTERVENTIONAL RADIOLOGIST AT [facility]. ADVISED BECAUSE dt4 THIS DOES NOT INVOLVE THE SUBCLAVIAN VEIN, IT IS NOT A "MEDICAL EMERGENCY". ADVISED MAY MANAGE MEDICALLY AND TALK TO I.R. HERE IN THE NEAR FUTURE IF PT NOT RESPONDING TO COUMADIN/LOVENOX.. 17:25 requires 7 blue tops, 1 tiger top, 3 purple tops per lab 4.21.14 ordered. dt4 17:26 PT/INR Ordered. EDMS 17:26 PTT Ordered. EDMS 17:26 Protein C Functional Activity Ordered. EDMS 17:26 Protein S Functional Activity Ordered. EDMS 17:26 Anti Thrombin 3 Panel (ag/ac) Ordered. EDMS 17:27 Anti-Cardiolipin Antibodies Ordered. EDMS 17:27 Factor V Leiden Ordered. EDMS 17:30 Enoxaparin (1mg/kg) 1 mg/kg Sub-Q once; Ensure no Heparin in past 6hrs. Ensure any dt4 baseline labs are drawn. ordered. 17:30 Warfarin 2.5 mg PO once ordered. dt4 17:33 Misc. Nursing Order ordered. dt4 17:39 ED course: SPOKE WITH PHARMACIST REGARDING INTERACTION BETWEEN FLUOXETINE AND COUMADIN, dt4 ADVISED THE FLUOXETINE INTERFERES WITH THE BREAKDOWN OF COUMADIN AND WILL THEREFORE RAISE THE INR. ADVISED NOT TO START WITH A HIGH DOSE OF COUMADIN WITH THIS PT AND CLOSELY MONITOR. . 17:54 US Upper Extremity R/O DVT Reviewed. mo1 19:16 Lupus Type Anticoagulant Ordered. EDMS 20:19 T-Sheet-- Draft Copy was scanned into [employer] and attached to record. [facility] 06/29 08:26 [facility] Payment Agreement was scanned into [employer] and attached to record. lg Administered Medications: 06/28 19:12 Drug: Warfarin 2.5 mg [warfarin 5 mg tablet (0.5 tabs)] Route: PO; [facility] 19:14 Drug: Enoxaparin (1mg/kg) 104.33 mg {Co-Signature: slm (Gloria Hamilton LPN).} [facility] Route: Sub-Q; Site: right upper abdomen; Signatures: Dispatcher [employer] EDMS Adrianna Dominguez, RN Josemanuel Campbell, Juana Ornelas lg, RN RN pml O'Hagan, Michael, PA PA mo1 McIntyre, Stephanie, LPN LPN slm Tschudi, Diane, PA-C PA-C dt4 Redder, Kathie klr Peters, Mary RN [facility] Gloria lamar The chart was reviewed and I authenticate all verbal orders and agree with the evaluation and treatment provided.Corrections: (The following items were deleted from the chart) 19:16 17:27 Lupus Type Anticoagulant+LAB ordered. EDMS EDMS Attachments: 20:19 T-Sheet-- Draft Copy [facility] 06/29 08:26 [facility] Payment Agreement lg Chart Complete MTDD
--- NOTE | 2016-06-30 20:19 | EDDOCDS ---
Nurse's Notes [facility] Name: Allen Jimenez Age: 35 yrs Sex: Male : 1980 Arrival Date: 06/28/2016 Time: 14:46 Bed I7 / 29 Private MD: Randy Pritchett Diagnosis: Acute embolism and thrombosis of deep veins of left upper extremity Presentation: 06/28 14:49 Presenting complaint: Patient states: left arm feels like its getting bigger. dx with srm blood clot a few weeks ago in the same arm. over past couple of days noticed it feels bigger. Presenting complaint: Patient states: takes xarelto. Adult Sepsis Screening: The patient does not have new or worsening altered mentation. Patient's respiratory rate is less than 22. Systolic blood pressure is greater than 100. Patient has a qSOFA score of 0- Negative Sepsis Screen. Suicide/Homicide risk assessment- the patient denies having any suicidal and/or homicidal ideations and does not present with any other emotional, behavioral or mental health complaints. Status: Patient is not a donor services technician or dependent. Transition of care: patient was not received from another setting of care. 14:49 Acuity: JOYCE Level 4 [facility] 14:49 Method Of Arrival: Walkin/Carried/Asstd [facility] Triage Assessment: 14:51 General: Appears in no apparent distress, Behavior is appropriate for age, cooperative. srm Pain: Pain currently is 7 out of 10 on a pain scale. HIV screening NA for this visit Offered previously. Musculoskeletal: Reports left arm feels bigger. Historical: - Allergies: Ambien; Mobic (Anaphylaxis); Tramadol HClseizure; - Home Meds: 1. atorvastatin 20 mg oral tab 1 tab once daily 2. Seroquel 50 mg Oral tab hs 3. fluoxetine 20 mg Oral cap 3 caps once daily 4. losartan 50 mg oral tab 1 tab once daily 5. pregabalin 200 mg Oral cap 1 cap 2 times per day 6. Xarelto 20 mg oral tab 1 tab once daily - PMHx: Asthma; Chronic Back pain; Depression; dvt left arm; - PSHx: Colonoscopy; - Social history: Smoking status: Chewing Tobacco No barriers to communication noted, The patient speaks fluent Micronesian, Speaks appropriately for age. - Family history: Not pertinent. - : The pt / caregiver states he / she is on anticoagulants: Xarelto Home medication list is obtained from the patient. - Exposure Risk Screening:: None identified. Screenin:03 Screening information is obtained from the patient. Fall risk: No risks identified. pml Assistance ADL's: requires no assistance with activities of daily living. Abuse/DV Screen: The patient / caregiver reports he/she is: not in a situation that causes fear, pain or injury. Nutritional screening: No deficits noted. Advance Directives: Currently, there is no health care proxy. home support is adequate. Assessment: 18:02 General: Appears in no apparent distress, Behavior is appropriate for age, cooperative. pml Neurological: Level of Consciousness is awake, alert, Oriented to person, place, time. Cardiovascular: Capillary refill < 3 seconds. Respiratory: Airway is patent Respiratory effort is even, unlabored. GI: Abdomen is non- distended. Derm: Skin is pink, warm & dry. Musculoskeletal: Circulation, motion, and sensation intact Capillary refill < 3 seconds Range of motion intact in all extremities. 19:16 Reassessment: Patient appears in no apparent distress at this time. Patient denies pain slm at this time. Vital Signs: 14:48 BP 145 / 79; Pulse 73; Resp 18; Temp 98.5(T); Pulse Ox 100% on R/A; Weight 104.33 kg; dem1 Height 6 ft. 0 in. (182.88 cm); Pain 7/10; 16:40 BP 125 / 77; Pulse 72; Resp 18; Pulse Ox 98% ; Pain 7/10; jb5 19:15 BP 143 / 88; Pulse 69; Resp 16; Temp 98.1; Pulse Ox 97% on R/A; Pain 0/10; slm 14:48 Body Mass Index 31.19 (104.33 kg, 182.88 cm) [facility] Vitals: 14:48 Log In Time: June 28, 2016 at 14:45. [facility] ED Course: 14:48 Patient visited by Sangeeta Parker. dem1 14:48 Randy Pritchett is Private Physician. dem1 14:48 Patient moved to Waiting dem1 14:48 Patient moved to Pre RCE dem1 14:50 Triage Initiated srm 14:55 Patient moved to Triage 3 mb9 15:16 [facility] dt4 15:16 Alessandro Villarreal MD is Attending Physician. dt4 15:16 Patient visited by Cammie Caceres PA-C. dt4 15:31 Patient moved to TR2 jb5 16:37 Patient moved to PR jb5 16:40 Patient visited by Shanta Pantoja PCA. jb5 17:05 Upper Extremity R/O DVT Returned. EDMS 17:19 Patient moved to I jb5 18:00 PHCP role handed off by Cammie Caceres PA-C mo1 18:00 Aditya Helm PA is PHCP. mo1 18:03 Patient visited by Juana Patterson,HALLE. pml 18:03 The patient / caregiver is instructed regarding the plan of care and ED course. Patient pml has correct armband on for positive identification. Bed in low position. Call light in reach. Side rails up X2. 19:10 Randy Pritchett is Referral Physician. mo1 19:18 Patient visited by Gloria Hamilton LPN. slm 19:18 No IV's were initiated during this patient's visit. No procedures done that require slm assistance. 20:19 T-Sheet-- Draft Copy was scanned into [employer] and attached to record. [facility] 06/29 08:26 [facility] Payment Agreement was scanned into [employer] and attached to record. lg Administered Medications: 06/28 19:12 Drug: Warfarin 2.5 mg [warfarin 5 mg tablet (0.5 tabs)] Route: PO; [facility] 19:14 Drug: Enoxaparin (1mg/kg) 104.33 mg {Co-Signature: slm (Gloria Hamilton LPN).} [facility] Route: Sub-Q; Site: right upper abdomen; Order Results: Lab Order: PT/INR; SPEC'M 06/28/16 18:53 Test: PROTHROMBIN TIME; Value: 16.1; Range: 12.3-14.5; Abnormal: Above high normal; Units: SECONDS; Status: F Test: INR; Value: 1.28; Status: F Test Note: ; THERAPUTIC HUMAN INR VALUES INDICATIONS NORMAL RANGES PROPHYLAXIS/TREATMENT OF: VENOUS THROMBOSIS 2.0-3.0 PULMONARY EMBOLISM 2.0-3.0 PREVENTION OF SYSTEMIC EMBOLISM FROM: TISSUE HEART VALVES 2.0-3.0 ACUTE MYOCARDIAL INFARCTION 2.0-3.0 VALVULAR HEART DISEASE 2.0-3.0 ATRIAL FIBRILLATION 2.0-3.0 MECHANICAL VALVES(HIGH RISK) 2.5-3.5 RECURRENT MYOCARDIAL INFARCTION 2.5-3.5 Lab Order: PTT; GANESH 06/28/16 18:53 Test: PARTIAL THROMBOPLASTIN TIME; Value: 37.9; Range: 26.6-37.1; Abnormal: Above high normal; Units: SECONDS; Status: F Radiology Order: US Upper Extremity R/O DVT Test: US Upper Extremity R/O DVT REASON FOR EXAMINATION: LEFT UE, HX OF DVT, THINKS WORSE; Clinical: Known deep venous thrombosis with increasing pain.; ; Technique: Real time valderrama scale and color Doppler evaluation of the left upper; extremity deep venous structures using linear high frequency transducer.; ; Findings:; Ultrasound examination demonstrates patent left jugular, subclavian, and cephalic; veins. Occlusive thrombus is identified within the left axillary vein, mid; brachial vein and diffusely throughout the basilic vein. In comparison to prior; examination subjectively, there appears to be increased thrombus within similar; distribution.; ; Impression:; Subjectively increased thrombus load in similar distribution as compared to prior; examination involving the axillary, basilic, and mid brachial veins.; ; ; Signed by; Delvis Guerrero MD 06/28/2016 04:18 P; Outcome: 19:10 Discharge ordered by Provider. mo1 19:17 Discharge Assessment: Patient awake, alert and oriented x 3. No cognitive and/or slm functional deficits noted. Patient verbalized understanding of disposition instructions. patient administered narcotics - no. The following High Risk Discharge criteria are identified: None. Discharged to home ambulatory. Condition: good. Discharge instructions given to patient, Instructed on discharge instructions, follow up and referral plans. medication usage, Demonstrated understanding of instructions, medications, Pt was receptive of discharge instructions/ teaching. Prescriptions given X 2. Property :Personal belongings accompany Pt. 19:18 Ultrasound Study completed. slm 19:18 Patient left the ED. slm Signatures: Dispatcher [employer] EDMS Adrianna Dominguez RN RN srm Peters, Mary, RN RN mcp Ganter, LoriLee, Shanta Catherine lg, CODING AND REIMBURSEMENT SPECIALIST CODING AND REIMBURSEMENT SPECIALIST jb5 Juana Patterson RN RN pml Mack, Demeishia dem1 Aditya Helm PA PA mo1 Gloria Hamilton,DONNA PRODUCT SAFETY TECHNICIAN slm Cammie Caceres PA-C PA-C dt4 Aditya Akers RN RN mb9 Cathryn Jiang LPN sl Chart Complete MTDD
== END 2016-06-28 19:18 | disposition home or self-care (01) ==
LOC: M ED 14:46
DX: I82.602 Acute embolism and thrombosis of unspecified veins of left upper extremity (principal); J45.909 Unspecified asthma, uncomplicated; G89.29 Other chronic pain; M54.9 Dorsalgia, unspecified; F32.9 Major depressive disorder, single episode, unspecified; Z79.899 Other long term (current) drug therapy; Z79.01 Long term (current) use of anticoagulants; Z88.5 Allergy status to narcotic agent; Z88.8 Allergy status to other drugs, medicaments and biological substances; F17.220 Nicotine dependence, chewing tobacco, uncomplicated
CPT/HCPCS: 36415; 81241; 85300; 85301; 85303; 85305; 85598; 85610; 85613; 85730; 86147; 93971; 96372; 99284; J1650

== ENCOUNTER → 2016-07-05 | Emergency (ER) | payer OTHER ==
[~2016-07-05] VITALS: Ht 182.9 cm; Wt 104.3 kg
[~2016-07-05] MED LIST changes: +ENOX100I3; +WARF-18
[2016-07-05 14:28] VITALS: BP 156/95
[2016-07-05 16:03] LABS: BASO % 0.4 % (0.0-1.0); EOS # 0.2 K/mm3 (0.0-0.50); EOS % 3.1 % (0.0-3.0); LARGE UNSTAINED CELL # 0.1 K/mm3 (0.0-0.4); LARGE UNSTAINED CELL % 1.9 % (0.0-4.0); LYMPH # 2.6 K/mm3 (1.5-4.5); LYMPH % 33.7 % (24.0-44.0); MEAN CORPUSCULAR HGB CONC 34.4 g/dl (32.0-36.5); MEAN CORPUSCULAR VOLUME 87.1 fl (80.0-96.0); MONO # 0.5 K/mm3 (0.0-0.8); MONO % 6.7 % (0.0-5.0); NEUTROPHILS % 54.2 % (36.0-66.0); PLATELET COUNT, AUTOMATED 256 k/mm3 (150-450); RED CELL DISTRIBUTION WIDTH 12.6 % (11.5-14.5); WHITE BLOOD COUNT 7.4 K/mm3 (4.0-10.0)
[2016-07-05 16:10] LABS: CONTROL LINE INT CTR LINE PRESENT; METHADONE URINE NEGATIVE (NEGATIVE); TRICYCLIC ANTIDEPRESS URINE NEGATIVE (NEGATIVE)
[2016-07-05 16:34] LABS: ALBUMIN 3.5 GM/DL (3.2-5.2); ALKALINE PHOSPHATASE 83 U/L (45-117); ALT/SGPT 283 U/L (12-78); ANION GAP 9 MEQ/L (8-16); AST/SGOT 177 U/L (15-37); BILIRUBIN,DIRECT < 0.1 MG/DL (0.0-0.2); BILIRUBIN,TOTAL 0.2 MG/DL (0.2-1.0); BLOOD UREA NITROGEN 15 MG/DL (7-18); CALCIUM LEVEL 8.5 MG/DL (8.5-10.1); CARBON DIOXIDE LEVEL 27 MEQ/L (21-32); CHLORIDE LEVEL 106 MEQ/L (98-107); CREATININE FOR GFR 0.97 MG/DL (0.70-1.30); GLOMERULAR FILTRATION RATE > 60.0 (>60); GLUCOSE, FASTING 96 MG/DL (70-105); POTASSIUM SERUM 3.9 MEQ/L (3.5-5.1); SODIUM LEVEL 142 MEQ/L (136-145); TOTAL PROTEIN 6.2 GM/DL (6.4-8.2)
[2016-07-05 16:48] LABS: INR 1.04
--- NOTE | 2016-07-05 16:56 | REP ---
DUPLEX UPPER EXTREMITY VEIN ULTRASOUND: REASON: Followup. Known left upper extremity deep vein thrombosis. Today's examination was performed in the same fashion as the prior exam of 06/28/2016. There is an unchanged amount of thrombus formation seen in the left axillary, brachial, and basilic veins. There is no change in appearance of the exam compared to the prior exam. IMPRESSION: Unchanged known deep vein thrombosis of the left upper extremity. Signed by Yvan High DO 07/08/2016 02:31 P
== END | disposition home or self-care (01) ==
LOC: M ED 16:23
DX: I82.602 Acute embolism and thrombosis of unspecified veins of left upper extremity (principal); R94.5 Abnormal results of liver function studies; I10 Essential (primary) hypertension; R56.9 Unspecified convulsions; J45.909 Unspecified asthma, uncomplicated; E78.00 Pure hypercholesterolemia, unspecified; G47.30 Sleep apnea, unspecified; M54.9 Dorsalgia, unspecified; F41.9 Anxiety disorder, unspecified; F32.9 Major depressive disorder, single episode, unspecified; Z79.899 Other long term (current) drug therapy; Z79.01 Long term (current) use of anticoagulants; Z88.8 Allergy status to other drugs, medicaments and biological substances
CPT/HCPCS: 36415; 80048; 80076; 80306; 84443; 85025; 85610; 93971; 99284; G0480

== ENCOUNTER → 2016-07-10 | Outpatient (CLI) | payer OTHER ==
[2016-07-10 10:50] LABS: INR 1.12
== END ==
LOC: M LAB 09:35
PROVIDERS: ATTEND Internal Medicine
DX: I82.629 Acute embolism and thrombosis of deep veins of unspecified upper extremity (principal)

== ENCOUNTER → 2016-07-31 | Outpatient (REF) | payer OTHER | LOC: M LAB REF 17:05 | PROVIDERS: ATTEND Internal Medicine Medical Oncology | DX: I82.722 Chronic embolism and thrombosis of deep veins of left upper extremity (principal) ==

== ENCOUNTER → 2016-09-12 | Outpatient (REF) | payer OTHER ==
[2016-09-12 17:44] LABS: INR 1.22
== END ==
LOC: M LAB REF 16:22
PROVIDERS: ATTEND Internal Medicine Medical Oncology
DX: I82.722 Chronic embolism and thrombosis of deep veins of left upper extremity (principal)

== ENCOUNTER 2016-11-02 19:55 | Emergency (ER) | payer OTHER ==
[~2016-11-02] VITALS: Ht 182.9 cm; Wt 103.1 kg
[~2016-11-02 19:55] MED LIST changes: +FLUO20CA19 PO; -FLUO20CA9 PO; -LYRI100C10 PO; -MUCI600T34 PO; +MUCI600T37 PO; +PREG100CA PO
[2016-11-02 19:56] VITALS: BP 140/85
[2016-11-02] MEDS ORDERED: COUM10TA PO (20:09)
[2016-11-02] MEDS ORDERED: TETRACAINE 0.5% OPHTH SOLN 4ML OD ONE (20:30)
[2016-11-02] MEDS ORDERED: CIPROFLOXACIN 0.3% OPHTH SOLN 2.5ML OD ONE (20:30)
[2016-11-02] MEDS ORDERED: FLUORESCEIN OPHTH 1 MG STRIP OD ONE (20:30)
== END 2016-11-02 20:42 | disposition home or self-care (01) ==
LOC: M ED 19:55
DX: S05.01XA Injury of conjunctiva and corneal abrasion without foreign body, right eye, initial encounter (principal); W20.8XXA Other cause of strike by thrown, projected or falling object, initial encounter; Y92.89 Other specified places as the place of occurrence of the external cause; Y93.H9 Activity, other involving exterior property and land maintenance, building and construction; Y99.8 Other external cause status; I10 Essential (primary) hypertension; R56.9 Unspecified convulsions; E78.00 Pure hypercholesterolemia, unspecified; J45.909 Unspecified asthma, uncomplicated; M45.9 Ankylosing spondylitis of unspecified sites in spine; F32.9 Major depressive disorder, single episode, unspecified; F41.9 Anxiety disorder, unspecified; F17.200 Nicotine dependence, unspecified, uncomplicated; Z79.899 Other long term (current) drug therapy; Z79.01 Long term (current) use of anticoagulants; Z88.8 Allergy status to other drugs, medicaments and biological substances

== ENCOUNTER 2017-01-03 14:10 | Emergency (ER) | payer OTHER ==
[~2017-01-03] VITALS: Ht 182.9 cm; Wt 104.5 kg
[~2017-01-03 14:10] MED LIST changes: +COUM10TA PO
[2017-01-03] MEDS ORDERED: KETOROLAC 30 MG/ML VIAL (J1885) IV ONE (15:15)
[2017-01-03] MEDS ORDERED: IPRATROPIUM 0.5MG/ALBUTEROL 2.5MG INH SOL UD 3ML (DUONEB)(J7620) NEB ONE (15:15)
[2017-01-03 15:23] LABS: BASO % 0.5 % (0.0-1.0); EOS # 0.2 K/mm3 (0.0-0.50); EOS % 2.2 % (0.0-3.0); LARGE UNSTAINED CELL # 0.1 K/mm3 (0.0-0.4); LARGE UNSTAINED CELL % 1.3 % (0.0-4.0); LYMPH # 2.1 K/mm3 (1.5-4.5); LYMPH % 21.5 % (24.0-44.0); MEAN CORPUSCULAR HEMOGLOBIN 30.1 pg (27.0-33.0); MEAN CORPUSCULAR HGB CONC 34.1 g/dl (32.0-36.5); MEAN CORPUSCULAR VOLUME 88.2 fl (80.0-96.0); MONO # 0.4 K/mm3 (0.0-0.8); MONO % 4.3 % (0.0-5.0); NEUTROPHILS # 6.4 K/mm3 (1.8-7.7); NEUTROPHILS % 70.3 % (36.0-66.0); PLATELET COUNT, AUTOMATED 286 k/mm3 (150-450); RED CELL DISTRIBUTION WIDTH 12.9 % (11.5-14.5); WHITE BLOOD COUNT 9.2 K/mm3 (4.0-10.0)
[2017-01-03 15:27] LABS: ALBUMIN 3.9 GM/DL (3.2-5.2); ALBUMIN/GLOBULIN RATIO 1.22 (1.00-1.93); ALKALINE PHOSPHATASE 72 U/L (45-117); ALT/SGPT 24 U/L (12-78); ANION GAP 9 MEQ/L (8-16); AST/SGOT 11 U/L (15-37); BILIRUBIN,DIRECT 0.1 MG/DL (0.0-0.2); BILIRUBIN,TOTAL 0.4 MG/DL (0.2-1.0); BLOOD UREA NITROGEN 14 MG/DL (7-18); CALCIUM LEVEL 8.6 MG/DL (8.5-10.1); CARBON DIOXIDE LEVEL 26 MEQ/L (21-32); CHLORIDE LEVEL 105 MEQ/L (98-107); CREATININE FOR GFR 1.13 MG/DL (0.70-1.30); GLOMERULAR FILTRATION RATE > 60.0 (>60); GLUCOSE, FASTING 83 MG/DL (70-105); POTASSIUM SERUM 3.6 MEQ/L (3.5-5.1); SODIUM LEVEL 140 MEQ/L (136-145); TOTAL PROTEIN 7.1 GM/DL (6.4-8.2)
[2017-01-03] MEDS ORDERED: ISOVUE-370 76% 100ML VIAL (Q9967) As Ordered ONE (15:32)
--- NOTE | 2017-01-03 15:56 | REP ---
Clinical: Acute chest pain with shortness of breath and a history of prior deep venous thrombosis. Technique: Axial contrast enhanced images from the thoracic inlet to the upper abdomen using 100 ml Isovue 370 intravenous contrast material with coronal and sagittal re-formations. Findings: Satisfactory enhancement of the pulmonary vasculature is achieved and no filling defects are identified to suggest pulmonary embolus. Thoracic aorta is normal caliber without aneurysm or dissection. Heart and pericardium are normal. Bilateral lung quinones are well aerated and clear without acute pulmonary parenchymal consolidation or atelectasis. No nodule or mass lesion. No pleural effusion/reaction. No pneumothorax. No adenopathy. Impression: No evidence for pulmonary embolus. No acute pleuroparenchymal or mediastinal process. Signed by Delvis Guerrero MD 01/03/2017 03:48 P
[2017-01-03] MEDS ORDERED: methylPREDNISolone INJ 125 MG/2 ML VIAL (J2930) IV ONE (16:15)
[2017-01-03] MEDS ORDERED: PRED20TA PO (16:51)
[2017-01-03 17:20] VITALS: BP 141/91
--- NOTE | 2017-01-04 19:16 | ECGEPIP ---
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
== END 2017-01-03 17:21 | disposition home or self-care (01) ==
LOC: M ED 14:10
DX: J45.901 Unspecified asthma with (acute) exacerbation (principal); M79.622 Pain in left upper arm; I10 Essential (primary) hypertension; E78.5 Hyperlipidemia, unspecified; G47.33 Obstructive sleep apnea (adult) (pediatric); K21.9 Gastro-esophageal reflux disease without esophagitis; F41.9 Anxiety disorder, unspecified; F32.9 Major depressive disorder, single episode, unspecified; D68.51 Activated protein C resistance; Z86.718 Personal history of other venous thrombosis and embolism; Z79.899 Other long term (current) drug therapy; Z79.01 Long term (current) use of anticoagulants; F17.220 Nicotine dependence, chewing tobacco, uncomplicated; Z88.8 Allergy status to other drugs, medicaments and biological substances
CPT/HCPCS: 36415; 71275; 80048; 80076; 85025; 85379; 93000; 94640; 96374; 96375; 99284; J1885; J2930; Q9967

== ENCOUNTER 2017-05-19 23:18 | Emergency (ER) | payer OTHER ==
[2017-05-20] MEDS: ASPIRIN 81 MG CHEW TABLET PO (00:47)
[2017-05-20] MEDS: NITROGLYCERIN 0.4 MG SUBL TABLET SL (00:49)
[2017-05-20] MEDS: ACETAMINOPHEN TAB 650MG DOSE (2X325MG) PO (01:00)
[2017-05-20 01:59] LABS: HEMATOCRIT 41.9 % (42.0-52.0); HEMOGLOBIN 14.5 g/dl (14.0-18.0); LYMPH % 14.2 % (24.0-44.0); MEAN CORPUSCULAR HEMOGLOBIN 29.5 pg (27.0-33.0); MEAN CORPUSCULAR HGB CONC 34.6 g/dl (32.0-36.5); MEAN CORPUSCULAR VOLUME 85.3 fl (80.0-96.0); PLATELET COUNT, AUTOMATED 327 10^3/uL (150-450); RED BLOOD COUNT 4.91 10^6/uL (4.30-6.10); RED CELL DISTRIBUTION WIDTH 12.4 % (11.5-14.5); WHITE BLOOD COUNT 15.2 10^3/uL (4.0-10.0)
[2017-05-20 02:00] LABS: BASO # 0.1 10^3/uL (0.0-0.2); BASO % 0.5 % (0.0-1.0); EOS # 0.1 10^3/uL (0.0-0.50); EOS % 0.9 % (0.0-3.0); IMMATURE GRANULOCYTE # 0.1 10^3/uL (0-0); IMMATURE GRANULOCYTE % 0.4 % (0-0); LYMPH # 2.2 10^3/uL (1.5-4.5); MONO # 1.1 10^3/uL (0.0-0.8); NEUTROPHILS # 11.7 10^3/uL (1.8-7.7)
[2017-05-20 02:11] LABS: BLOOD UREA NITROGEN 19 MG/DL (7-18); CALCIUM LEVEL 8.8 MG/DL (8.5-10.1); CREATININE FOR GFR 1.52 MG/DL (0.70-1.30); GLOMERULAR FILTRATION RATE 55.5 (>60); GLUCOSE, FASTING 99 MG/DL (70-105)
[2017-05-20 02:12] LABS: ANION GAP 6 MEQ/L (8-16); CARBON DIOXIDE LEVEL 29 MEQ/L (21-32); CHLORIDE LEVEL 102 MEQ/L (98-107); CPK CREATINE PHOSPHOKINASE 153 U/L (39-308); MB/CK RELATIVE INDEX 0.65 (< OR =4); POTASSIUM SERUM 3.3 MEQ/L (3.5-5.1); SODIUM LEVEL 137 MEQ/L (136-145); TROPONIN I < 0.02 NG/ML (< 0.10)
[2017-05-20] MEDS ORDERED: ISOVUE-370 76% 100ML VIAL (Q9967) As Ordered (02:16)
== END 2017-05-20 04:08 | disposition home or self-care (01) ==
LOC: M ED 23:18
DX: R07.89 Other chest pain (principal); J98.11 Atelectasis; F17.210 Nicotine dependence, cigarettes, uncomplicated; Z79.01 Long term (current) use of anticoagulants; Z79.899 Other long term (current) drug therapy; Z88.8 Allergy status to other drugs, medicaments and biological substances; Z88.5 Allergy status to narcotic agent; Z86.69 Personal history of other diseases of the nervous system and sense organs
CPT/HCPCS: Q9967

== ENCOUNTER 2017-07-03 20:03 | Emergency (ER) | payer OTHER ==
[2017-07-04] MEDS: ACETAMINOPHEN 325 MG TAB PO (00:30)
[2017-07-04 00:45] LABS: INR 1.36; PROTHROMBIN TIME 17.1 SECONDS (12.4-14.5)
[2017-07-04 00:46] LABS: PARTIAL THROMBOPLASTIN TIME 34.7 SECONDS (26.8-37.9)
== END 2017-07-04 01:23 | disposition home or self-care (01) ==
LOC: M ED 20:03
DX: M54.12 Radiculopathy, cervical region (principal); M79.622 Pain in left upper arm; I10 Essential (primary) hypertension; K21.9 Gastro-esophageal reflux disease without esophagitis; E78.9 Disorder of lipoprotein metabolism, unspecified; D68.59 Other primary thrombophilia; G47.33 Obstructive sleep apnea (adult) (pediatric); Z86.718 Personal history of other venous thrombosis and embolism; Z79.899 Other long term (current) drug therapy; Z88.5 Allergy status to narcotic agent; Z88.8 Allergy status to other drugs, medicaments and biological substances
CPT/HCPCS: 93971

== ENCOUNTER 2017-07-14 15:16 | Emergency (ER) | payer OTHER | END 2017-07-14 18:30 | disposition home or self-care (01) | LOC: M ED 15:16 | DX: S39.012A Strain of muscle, fascia and tendon of lower back, initial encounter (principal); X50.0XXA Overexertion from strenuous movement or load, initial encounter; Y92.9 Unspecified place or not applicable; Y93.9 Activity, unspecified; Y99.0 Civilian activity done for income or pay; K21.9 Gastro-esophageal reflux disease without esophagitis; R56.9 Unspecified convulsions; I10 Essential (primary) hypertension; G47.30 Sleep apnea, unspecified; Z86.718 Personal history of other venous thrombosis and embolism; D68.59 Other primary thrombophilia; Z79.01 Long term (current) use of anticoagulants; Z79.899 Other long term (current) drug therapy; Z88.8 Allergy status to other drugs, medicaments and biological substances | CPT/HCPCS: 99282 ==

== ENCOUNTER → 2017-10-14 | Outpatient (REF) | LOC: M LAB 17:05 | DX: Z02.89 Encounter for other administrative examinations (principal) ==